=== PATIENT | female | born 1955 | race Caucasian/White ===

== ENCOUNTER → 2017-06-14 | Outpatient (CLI) | payer BC ==
[~2017-06-14] MED LIST: ALUMSUS21 PO; ATV5 PO; CLBCRM30 EXT; CLON0.5T3 PO; CYAN500T13 PO; CYM/30 PO; DULO60CA44 PO; ESTR2 PO; FLAX100019 PO; GABA-112 PO; LOSA50TA6 PO; METF750T PO; METO25TA56 PO; MULT-506 PO; ORPH100T PO; OXYC40TA34 PO; PANT40TA PO; POLY335019 PO; POTA20TA16 PO; RANO1000 PO; ROPI1TAB PO; ROSU20TA PO; RXC5 PO; TOPI100T20 PO
--- NOTE | 2017-06-15 07:45 | MAMMOGRAPHY REPORT ---
BILATERAL DIGITAL SCREENING MAMMOGRAM WITH CAD: 06/14/2017 CLINICAL HISTORY: Routine screening. Patient has no complaints. TECHNIQUE: Bilateral CC and MLO views were obtained. Current study was also evaluated with a Compute r Aided Detection (CAD) system. COMPARISON: Comparison is made to exams dated: 05/04/2016 mammogram, 05/02/2014 mammogram, 03/23/2013 m ammogram, and 04/13/2012 ultrasound biopsy - [facility]. BREAST COMPOSITION: The tissue of both breasts is almost entirely fatty. FINDINGS: Triangular skin markers were placed over each nipple. There is a stable metallic biopsy ma rker in the right breast. A few scattered benign-appearing coarse calcifications. No suspicious mas s, architectural distortion or cluster of suspicious microcalcifications is seen. IMPRESSION: ACR BI-RADS CATEGORY 1: NEGATIVE There is no mammographic evidence of malignancy. A 1 year screening mammogram is recommended. The pa tient will receive written notification of the results. Approximately 10% of breast cancers are not detected with mammography. A negative mammographic report should not delay biopsy if a clinically suggestive mass is present. Pau Harp M.D. ay/:06/14/2017 16:53:52 [employer] Maker Novelty: Rocio Velez RT(R)(M), [facility] letter sent: Normal 1/2 BI-RADS Code: ACR BI-RADS Category 1: Negative
== END | disposition home or self-care (01) ==
LOC: C.MAMM 15:29
PROVIDERS: ATTEND Specialist
DX: Z12.31 Encounter for screening mammogram for malignant neoplasm of breast (principal)

== ENCOUNTER 2019-05-25 08:37 | Inpatient (IN) ==
--- NOTE | 2019-05-08 14:10 | PAT Medication Instructions ---
Medication Instructions Date of Service May 08, 2019 Home Medications ALUMINUM HYDROXIDE-MAG CARB (GAVISCON) 1 tbsp PO BID PRN CLOBETASOL PROPIONATE (Clobetasol Propionate Cream 0.05%) 1 applic EXT DAILY PRN Duloxetine HCl (Cymbalta) 1 cap PO BID ESTRADIOL (ESTRACE) 0.5 tab PO QAM LOSARTAN POTASSIUM (COZAAR) 50 mg PO QAM METFORMIN HCL (GLUCOPHAGE ER) 750 mg PO BID Metoprolol Tartrate (Lopressor) (Lopressor) 25 mg PO QAM Multivitamin 1 tab PO QAM Orphenadrine Citrate (Norflex) 100 mg PO BID PRN Potassium Ext Rel (Klor-Con) 20 meq PO QPM RANOLAZINE (RANEXA) 1 tab PO BID ROSUVASTATIN CALCIUM (CRESTOR) 20 mg PO QAM Ropinirole (Requip) 2 mg PO HS Topiramate (Topamax) 100 mg PO BID gabapentin 300 mg PO TID linaclotide [Linzess] 290 mcg PO QAM pantoprazole 20 mg PO BID vit C,X-Qv-eumak-lutein-zeaxan [PreserVision AREDS-2] 1 tab PO HS STOP taking 2 weeks before surgery vit C,B-Qd-kwuqn-lutein-zeaxan [PreserVision AREDS-2] 1 tab PO HS STOP taking 24 hours before surgery CLOBETASOL PROPIONATE (Clobetasol Propionate Cream 0.05%) 1 applic EXT DAILY PRN Ropinirole (Requip) 2 mg PO HS DO NOT take the morning of surgery ALUMINUM HYDROXIDE-MAG CARB (GAVISCON) 1 tbsp PO BID PRN ESTRADIOL (ESTRACE) 0.5 tab PO QAM LOSARTAN POTASSIUM (COZAAR) 50 mg PO QAM METFORMIN HCL (GLUCOPHAGE ER) 750 mg PO BID Multivitamin 1 tab PO QAM Orphenadrine Citrate (Norflex) 100 mg PO BID PRN linaclotide [Linzess] 290 mcg PO QAM Take morning of surgery With a small sip of water, OTHERWISE NOTHING TO EAT OR DRINK AFTER MIDNIGHT: Duloxetine HCl (Cymbalta) 1 cap PO BID Metoprolol Tartrate (Lopressor) (Lopressor) 25 mg PO QAM RANOLAZINE (RANEXA) 1 tab PO BID ROSUVASTATIN CALCIUM (CRESTOR) 20 mg PO QAM Topiramate (Topamax) 100 mg PO BID gabapentin 300 mg PO TID pantoprazole 20 mg PO BID Take evening before surgery ALUMINUM HYDROXIDE-MAG CARB (GAVISCON) 1 tbsp PO BID PRN (if needed) Duloxetine HCl (Cymbalta) 1 cap PO BID METFORMIN HCL (GLUCOPHAGE ER) 750 mg PO BID Orphenadrine Citrate (Norflex) 100 mg PO BID PRN (if needed) Potassium Ext Rel (Klor-Con) 20 meq PO QPM RANOLAZINE (RANEXA) 1 tab PO BID Topiramate (Topamax) 100 mg PO BID gabapentin 300 mg PO TID pantoprazole 20 mg PO BID Other Notes If you have any questions please call us at [phone] or [phone] or [phone] or [phone]
--- NOTE | 2019-05-08 14:52 | Anesthesiology Consultation ---
Date of Service May 08, 2019 Assessment & Plan (1) Encounter for pre-operative examination: Cardio clearance 05/22 (trinacollin) = " I see no cardiac contraindication to proceeding on with the planned back surgery. I would recommend perioperative cardiac monitoring. She should receive her metoprolol tartrate the morning of surgery with a sip of water." *OR notification sheet updated for arterial line placement given cardio recommendations above. Chart Review Chart Review: Acceptable Risk for Surgery and Patient seen in Pre Admission Testing Teaching & Discussion Instructed NPO after midnight before surgery, except medications with 15 cc of water. Medication instructions provided according to the PAT guidelines. History Surgery Operation Date: 05/25/19 09:55 Proposed Procedures p L2-L3, L3-L4 Decompression and Fusion with Spinal Cord Monitoring - Leandro Segura, Height/Weight Height: 5 ft 1 in Weight: 91.7 kg Allergies Allergy/AdvReac Type Severity Reaction Status Date / Time ampicillin Allergy Unknown SWELLING Verified 05/04/19 14:29 OF LIPS vancomycin Allergy Unknown ITCHINESS Verified 05/04/19 14:29 AND SKIN REDNESS pregabalin [From Lyrica] Allergy Swelling Verified 05/08/19 14:43 of extremities Medications Home Medications Medication Instructions Recorded Confirmed Last Taken ALUMINUM HYDROXIDE-MAG CARB 1 tbsp PO BID PRN #0 04/12/16 05/04/19 Unknown (GAVISCON) CLOBETASOL PROPIONATE (Clobetasol 1 applic EXT DAILY PRN #0 tube 04/12/16 05/04/19 Unknown Propionate Cream 0.05%) Duloxetine HCl (Cymbalta) 1 cap PO BID 30 Days #30 cap 04/12/16 05/04/19 Unknown ESTRADIOL (ESTRACE) 0.5 tab PO QAM 90 Days #45 tab 04/12/16 05/04/19 Unknown LOSARTAN POTASSIUM (COZAAR) 50 mg PO QAM #0 tab 04/12/16 05/04/19 Unknown METFORMIN HCL (GLUCOPHAGE ER) 750 mg PO BID #0 tab 04/12/16 05/04/19 Unknown Metoprolol Tartrate (Lopressor) 25 mg PO QAM #0 tab 04/12/16 05/04/19 Unknown (Lopressor) Multivitamin 1 tab PO QAM #0 tab 04/12/16 05/04/19 Unknown Orphenadrine Citrate (Norflex) 100 mg PO BID PRN #0 tab 04/12/16 05/04/19 Unknown Potassium Ext Rel (Klor-Con) 20 meq PO QPM #0 tab 04/12/16 05/04/19 Unknown RANOLAZINE (RANEXA) 1 tab PO BID 90 Days #180 tab 04/12/16 05/04/19 Unknown ROSUVASTATIN CALCIUM (CRESTOR) 20 mg PO QAM #0 tab 04/12/16 05/04/19 Unknown Ropinirole (Requip) 2 mg PO HS #0 tab 04/12/16 05/04/19 Unknown Topiramate (Topamax) 100 mg PO BID #0 tab 04/12/16 05/04/19 Unknown gabapentin 300 mg PO TID 05/04/19 05/04/19 Unknown linaclotide [Linzess] 290 mcg PO QAM 05/04/19 05/04/19 Unknown pantoprazole 20 mg PO BID 05/04/19 05/04/19 Unknown vit C,D-Mv-ownuo-lutein-zeaxan 1 tab PO HS 05/04/19 05/04/19 Unknown [PreserVision AREDS-2] Past Medical History Medical History Anxiety Depression Diabetes mellitus, type 2 GERD (gastroesophageal reflux disease) H/O chest pain Per cardio, relieved by Ranexa, though pt had "normal" coronary arteries on 2012 cath. Heart palpitations Rare. Had full cardiac workup for. Hiatal hernia Hyperlipidemia Hypertension Incontinent of urine Macular degeneration BOTH EYES Nutcracker esophagus Obesity Spinal stenosis Exercise / Class Metabolic Activity III < 4 Walking/Shop/Light housework (Limited activity 2/2 back pain. +SOB with stairs, denies any chest pain) Past Family History Family History Brother Family history of diabetes mellitus Sister Family history of diabetes mellitus Past Surgical History Surgical History History of back surgery X2 History of cardiac cath 2012 [place]. No intervention performed. "Essentially normal coronary arteries" per cardio. History of colonoscopy History of right knee joint replacement X2 Hx of bilateral breast reduction surgery Hx of cervical discectomy Hx of cholecystectomy Hx of total hysterectomy Past Anesthesia History No Family Hx of Anesthesia Complications (Sister slow to wake, no ICU or reintubation) and Other Patient reports she was kept inpatient after cholecystectomy because she "just could not wake up." Denies re-intubation. Has had subsequent surgeries with no issues. History of PONV No Hx of PONV and Hx of Motion Sickness Social History Smoking Status: Never smoker Do You Dip or Chew Tobacco: No Hx Alcohol Use: Yes Alcohol type: beer and wine alcohol intake frequency: holidays/special occasions only Hx Substance Use: No Review of Systems Pt denies any recent chest pain, shortness of breath, palpitations, cough, fever or URI. Physical Exam Vital Signs BP: 112/71 P: 61bpm SPO2: 97% RA T: 98.5 F R: 18 Constitutional + obese ENMT Mouth: + dentures (Full upper denture, partial lower); no chipped teeth and no loose teeth Thyromental Distance: > or= 3.5 Finger Breadths (4) Mallampati Class: II Neck + short neck, + thick neck and + limited neck extension (mildly limited 2/2 cervical fusion) Respiratory normal respiratory effort Auscultation: lungs clear to auscultation bilaterally Cardiovascular Rate/Rhythm: regular rate and regular rhythm Heart Sounds: no murmur Vessels: no carotid bruit Extremities: no edema Testing Laboratory Results 05/08/19 14:58 05/08/19 14:58 PT 9.9 Seconds (9.0-12.0) 05/08/19 14:58 INR 1.0 (0.9-1.1) 05/08/19 14:58 APTT 24.1 Seconds (21.0-31.0) 05/08/19 14:58 Hemoglobin A1c 5.9 % (4.5-5.6) H 05/08/19 14:58 Urine Color Dark Yellow 05/08/19 Unknown Urine Appearance Clear (Clear) 05/08/19 Unknown Urine pH 5.5 (4.5-7.5) 05/08/19 Unknown Ur Specific [place] 1.025 (1.000-1.030) 05/08/19 Unknown Urine Protein Negative (Negative) 05/08/19 Unknown Urine Glucose (UA) Negative (Negative) 05/08/19 Unknown Urine Ketones Negative (Negative) 05/08/19 Unknown Urine Nitrite Negative (Negative) 05/08/19 Unknown Ur Leukocyte Esterase Trace (Negative) H 05/08/19 Unknown Urine WBC (Auto) 1-5 /hpf (0-5) 05/08/19 Unknown Urine RBC (Auto) 5-10 /hpf (0-4) H 05/08/19 Unknown U Hyaline Cast (Auto) 1-5 /lpf (0-5) 05/08/19 Unknown U Epithel Cells (Auto) 20-30 /lpf (0-5) H 05/08/19 Unknown Urine Bacteria (Auto) Negative (Negative) 05/08/19 Unknown Blood Type B Positive 05/08/19 14:58 Antibody Screen NEGATIVE 05/08/19 14:58 Electrocardiogram Date: 05/08/19 Findings: + NSR @ (61) Chest X-Ray Date: 05/08/19 Findings: + NAD Echocardiogram Date: 07/13/17 EF: 55% Normal left ventricular wall motion and ejection fraction estimated in the range of 55%. LVH. Sclerotic changes involving both the aortic and mitral valve leaflets. Mild mitral and tricuspid valvular insufficiency. Stress Test Date: 05/23/19 Type: nuclear Normal myocardial perfusion SPECT images without evidence for pharmacologically induced ischemia. Normal LV wall motion and thickening. Normal LV ejection fraction post stress of 53%. Cardiac Catheterization Date: 01/08/13 Hemodynamics are normal. There is no pullback aortic gradient. Left ventricular systolic function is normal without any mitral regurgitation or mitral valve prolapse. The coronary arteries are all normal. In view of no evidence of coronary artery disease I would suggest patient just needs to be observed and treated medically.
[2019-05-08 15:35] LABS: Basophils # (auto) 0.02 K/uL (0-0.2); Basophils % (auto) 0.4 %; Eosinophils # (auto) 0.32 K/uL (0-0.5); Eosinophils % (auto) 5.8 %; Hemoglobin 12.3 g/dL (12.0-16.0); Immature Granulocytes # (auto) 0.01 K/uL (0.00-0.02); Immature Granulocytes % (auto) 0.2 %; Lymphocytes # (auto) 1.97 K/uL (1.2-3.4); Lymphocytes % (auto) 35.6 %; Mean Corpuscular Hgb Conc 33.2 g/dL (32-36); Monocytes # (auto) 0.49 K/uL (0.11-0.59); Monocytes % (auto) 8.8 %; Neutrophils # (auto) 2.73 K/uL (1.4-6.5); Neutrophils % (auto) 49.2 %; Platelet Count 186 K/uL (130-400); RDW Coefficient of Variation 14.4 % (11.5-14.5); RDW Standard Deviation 49.1 fL (36.4-46.3); Red Blood Count 3.98 M/uL (4.2-5.4); White Blood Count 5.54 K/uL (4.8-10.8)
[2019-05-08 15:45] LABS: Calcium 8.8 mg/dl (8.5-10.1); Creatinine Clr Calc Pharmacy 84.8 ml/min; Est GFR (African American) 105.8; Est GFR (Non-African American) 91.3; Potassium 3.8 mmol/L (3.5-5.1)
--- NOTE | 2019-05-08 15:49 | XRay Report ---
XR chest Pre-admission PA/Lat CLINICAL HISTORY: Preoperative evaluation. COMPARISON STUDY: Chest radiograph April 12, 2016. FINDINGS: Lung volumes are normal. Lungs are clear. There is no pneumothorax or pleural effusion. Car diac size is normal. Mediastinal contours are normal. There is no evidence for pulmonary edema. Incid ental note is made of an anterior cervical spine fusion and cholecystectomy clips. Linear left basila r opacity suggests atelectasis. IMPRESSION: No acute cardiopulmonary findings. Electronically signed by: Mina Kim M.D. 05/08/2019 3:48 PM
[2019-05-08 15:51] LABS: Partial Thromboplastin Ratio 0.9; Partial Thromboplastin Time 24.1 Seconds (21.0-31.0); Prothrombin Time 9.9 Seconds (9.0-12.0)
[2019-05-08 15:52] LABS: Appearance Urine Clear (Clear); Bacteria Urine Automated Negative (Negative); Bilirubin Urine Negative (Negative); Color Urine Dark Yellow; Epithelial Cell Urine Auto 20-30 /lpf (0-5); Glucose Urine UA Negative (Negative); Ketones Urine Negative (Negative); Leukocyte Esterase Urine Trace (Negative); Nitrite Urine Negative (Negative); Protein Urine Negative (Negative); Specific Gravity Urine 1.025 (1.000-1.030); Urobilinogen Urine Negative (Negative); pH Urine 5.5 (4.5-7.5)
[2019-05-09 06:33] LABS: Estimated Average Glucose 123 mg/dl
[~2019-05-25 08:37] MED LIST changes: +ACETAMINOPHEN 500 MG TAB PO SCH; -ALUMSUS21 PO; -ATV5 PO; -CLBCRM30 EXT; +CLINDAMYCIN 600 MG/54 ML BAG IV SCH; -CLON0.5T3 PO; -CYAN500T13 PO; -CYM/30 PO; +CeleBREX 200 MG CAP PO SCH; +DEXAMETHASONE SOD INJ 4 MG/ML VIAL ONE; -DULO60CA44 PO; -ESTR2 PO; -FLAX100019 PO; -GABA-112 PO; +GABAPENTIN 600 MG DOSE PO SCH; +GLYCOPYRROLATE 0.2 MG/ML VIAL ONE; +HYDROmorphone INJ 2 MG/ML SYR/VIAL ONE; +LIDOCAINE HCL 2% 2 ML VIAL/AMP(20MG/ML) INFIL ONE; -LOSA50TA6 PO; +LR 15ML/HR IV SCH; -METF750T PO; -METO25TA56 PO; +MIDAZOLAM HCL 1 MG/ML 2ML VIAL ONE; -MULT-506 PO; +NEOSTIGMINE METHYLSULFATE 1 MG/ML 10ML VIAL ONE; +ONDANSETRON INJ 2 MG/ML 2 ML VIAL ONE; -ORPH100T PO; -OXYC40TA34 PO; -PANT40TA PO; -POLY335019 PO; -POTA20TA16 PO; +PROPOFOL IV EMULSION 10 MG/ML 20 ML VIAL IV ONE; -RANO1000 PO; +ROCURONIUM BROMIDE 10 MG/ML 5 ML VIAL ONE; -ROPI1TAB PO; -ROSU20TA PO; -RXC5 PO; -TOPI100T20 PO; +fentaNYL citrate 100 MCG/2 ML VIAL ONE
--- NOTE | 2019-05-25 09:02 | History & Physical Bridge Note ---
Date of Service May 25, 2019 History & Physical Bridge Note I have examined the patient, reviewed the History & Physical and in the interval since the performance of the History & Physical I have noted the following changes of clinical significance: no changes noted
--- NOTE | 2019-05-25 09:03 | History & Physical Report ---
Date of Service May 25, 2019 Assessment & Plan (1) Spinal stenosis, lumbar region with neurogenic claudication: Decompression and fusion L2-3 L3-4 Present on Admission?: Yes History of Present Illness Chief Complaint: Back and leg pain Primary Care Provider: Shin Alston, This is a 64-year-old female presents with chronic persistent back and bilateral leg pain. After failing extensive course of nonoperative care she is here for surgical intervention. Allergies Allergy/AdvReac Type Severity Reaction Status Date / Time ampicillin Allergy Unknown SWELLING Verified 05/04/19 14:29 OF LIPS vancomycin Allergy Unknown ITCHINESS Verified 05/04/19 14:29 AND SKIN REDNESS pregabalin [From Lyrica] Allergy Swelling Verified 05/08/19 14:43 of extremities Home Medications Home Medications Medication Instructions Recorded Confirmed Type ALUMINUM HYDROXIDE-MAG CARB 1 tbsp PO BID PRN #0 04/12/16 05/04/19 History (GAVISCON) CLOBETASOL PROPIONATE (Clobetasol 1 applic EXT DAILY PRN #0 tube 04/12/16 05/04/19 History Propionate Cream 0.05%) Duloxetine HCl (Cymbalta) 1 cap PO BID 30 Days #30 cap 04/12/16 05/04/19 History ESTRADIOL (ESTRACE) 0.5 tab PO QAM 90 Days #45 tab 04/12/16 05/04/19 History LOSARTAN POTASSIUM (COZAAR) 50 mg PO QAM #0 tab 04/12/16 05/04/19 History METFORMIN HCL (GLUCOPHAGE ER) 750 mg PO BID #0 tab 04/12/16 05/04/19 History Metoprolol Tartrate (Lopressor) 25 mg PO QAM #0 tab 04/12/16 05/04/19 History (Lopressor) Multivitamin 1 tab PO QAM #0 tab 04/12/16 05/04/19 History Orphenadrine Citrate (Norflex) 100 mg PO BID PRN #0 tab 04/12/16 05/04/19 History Potassium Ext Rel (Klor-Con) 20 meq PO QPM #0 tab 04/12/16 05/04/19 History RANOLAZINE (RANEXA) 1 tab PO BID 90 Days #180 tab 04/12/16 05/04/19 History ROSUVASTATIN CALCIUM (CRESTOR) 20 mg PO QAM #0 tab 04/12/16 05/04/19 History Ropinirole (Requip) 2 mg PO HS #0 tab 04/12/16 05/04/19 History Topiramate (Topamax) 100 mg PO BID #0 tab 04/12/16 05/04/19 History gabapentin 300 mg PO TID 05/04/19 05/04/19 History linaclotide [Linzess] 290 mcg PO QAM 05/04/19 05/04/19 History pantoprazole 20 mg PO BID 05/04/19 05/04/19 History vit C,R-Vi-sipdi-lutein-zeaxan 1 tab PO HS 05/04/19 05/04/19 History [PreserVision AREDS-2] Past Med/Surg History Medical History Anxiety Depression Diabetes mellitus, type 2 GERD (gastroesophageal reflux disease) H/O chest pain Per cardio, relieved by Ranexa, though pt had "normal" coronary arteries on 2013 cath. Heart palpitations Rare. Had full cardiac workup for. Hiatal hernia Hyperlipidemia Hypertension Incontinent of urine Macular degeneration BOTH EYES Nutcracker esophagus Obesity Spinal stenosis Surgical History History of back surgery X2 History of cardiac cath 2013 [place]. No intervention performed. "Essentially normal coronary arteries" per cardio. History of colonoscopy History of right knee joint replacement X2 Hx of bilateral breast reduction surgery Hx of cervical discectomy Hx of cholecystectomy Hx of total hysterectomy Family History Brother Family history of diabetes mellitus Sister Family history of diabetes mellitus Social History Preferred Language: Beninese Communication Ability: Effective Beliefs That Will Affect Care: None Current Living Situation: Spouse Feels Safe at Home: Yes Safety Concerns: Feels Safe At This Time Smoking Status: Never smoker Do You Dip or Chew Tobacco: No Second Hand Exposure: No Hx Alcohol Use: Yes Alcohol type: beer and wine Hx Substance Use: No Physical Exam Physical Exam: Patient is alert and oriented neurologically intact.
[2019-05-25] MEDS ORDERED: HYDROmorphone INJ 2 MG/ML SYR/VIAL IV PRN (09:20)
[2019-05-25] MEDS ORDERED: PROMETHAZINE HCL 12.5 MG in SODIUM CHLORIDE 0.9% 50 ML IV PRN ×2 (09:20→13:54)
[2019-05-25] MEDS ORDERED: DEXAMETHASONE SOD INJ 4 MG/ML VIAL IV PRN (09:20)
[2019-05-25] MEDS ORDERED: METOCLOPRAMIDE HCL INJ 5 MG/ML 2 ML VIAL IV PRN ×2 (09:20→13:54)
[2019-05-25] MEDS ORDERED: ePHEDrine sulfate 50 MG/ML AMP IV PRN (09:20)
[2019-05-25] MEDS ORDERED: ONDANSETRON INJ 2 MG/ML 2 ML VIAL IV PRN ×2 (09:20→13:54)
[2019-05-25] MEDS ORDERED: ATROPINE SULFATE 0.1 MG/ML 10ML SYR IV PRN (09:20)
[2019-05-25] MEDS ORDERED: HYDROmorphone INJ 2 MG/ML SYR/VIAL ONE (09:22)
[2019-05-25] MEDS ORDERED: BACITRACIN INJ 50,000 UNIT VIAL ONE (09:29)
[2019-05-25] MEDS ORDERED: BUPIVACAINE/EPINEPHRINE 0.5% MPF 1:200,000 30 ML VIAL ONE (09:29)
[2019-05-25] MEDS ORDERED: fentaNYL citrate 100 MCG/2 ML VIAL ONE ×4 (10:18→11:24)
[2019-05-25] MEDS ORDERED: LARYING-O-JET KIT (LTA) ONE (10:44)
[2019-05-25] MEDS ORDERED: FLOSEAL HEMOSTATIC MATRIX 10ML TOP ONE (10:53)
[2019-05-25] MEDS ORDERED: ROCURONIUM BROMIDE 10 MG/ML 5 ML VIAL ONE (11:35)
[2019-05-25] MEDS ORDERED: KETOROLAC 30 MG/ML VIAL ONE (11:35)
[2019-05-25] MEDS ORDERED: ePHEDrine sulfate 50 MG/ML SYR ONE (11:35)
--- NOTE | 2019-05-25 12:01 | Operative Report ---
Post Operative Report Pre & Post Diagnosis Operation Date: 05/25/19 09:55 Pre-Op Diagnosis: LUMBAR SPINAL STENOSIS W/NEUROGENIC CLAUDICATION Post-Op Diagnosis: LUMBAR SPINAL STENOSIS W/NEUROGENIC CLAUDICATION Procedure Operation Date: 05/25/19 09:55 Actual Procedures #1 revision decompression bilateral medial facetectomies foraminotomies L1-L2 3 L3-4. #2 posterior spinal fusion L2-3 L3-4. #3 placement posterior instrumentation L2-3 L3-4. #4 interbody fusion L3-4. #5 placed a peek cage 10 x 22 mm at L3-4. #6 placement of local autograft in the posterior lateral gutte rs. #7 placement infuse collagen sponge, master graft in the posterior lateral gutters and ostial amp and interbody space. Surgeon Leandro Segura, DO Gum Rolling Machine Operator Jamil Greene Estimated Blood Loss 225 Findings See Below Patient is 5 foot 1 inches tall weighing 92 kg with a BMI of 38.4. Patient's body habitus created marked technical difficulty throughout the procedure adding 50% increase in operative time. Requiring our deepest retractors and longus instruments to perform the decompression and fusion. Specimens None Indications This is a 64-year-old female that presents with chronic back and bilateral leg pain. After failing extensive course of nonoperative care she like to undergo the above-mentioned procedure. Description of Procedure The patient was met with identified and informed consent obtained. Patient was then taken to the operative suite underwent intubation placed in a prone position the Klaus table on top of the Brennan frame. All bony prominences well-padded eyes inspected to ensure no external pressure placed upon but this point lumbar spine was prepped and draped in normal sterile fashion. Sharp dissection with the assistance of Bovie cautery was performed down to and exposing the remaining lamina and transverse processes of L2-L3 and L4 bilaterally. Marked scarring was appreciated from the previous decompressed level at L3-4. Then performed revision complete laminectomy of L3 L2 and partial laminectomy of L1 including bilateral medial facetectomies f oraminotomies addressing severe stenosis. Pedicle screws were then placed in L2-L3-L4 bilaterally with assistance of fluoroscopy the purposes sunita placed. By way of a transforaminal approach on the right complete discectomy at L3-4 was performed in plate graded to subcortical bleeding bone and a 10 x 22 mm peek cage filled with osteo-amp bone graft tapped in position. The rods were then locked in final position bilaterally. The transverse processes of L2-L3-L4 burred to subcortical bleeding bone. Infuse collagen sponge mass graft local autograft placed in the posterior lateral gutters. 15 round SIMON drain inserted. Incision was then closed with 1 Vicryl in the fascia 2-0 Vicryl subtenons seen for Monocryl for final skin closure. Steri-Strip sterile dressings placed. Patient will continue PACU stable disc. Please note Jamil Greene present throughout the entire procedure involved in patient positioning complex portions of the surgery and final skin closure. Lastly spinal cord monitoring was utilized that procedure no changes noted. I attest to the content of the Intraoperative Record and any orders documented therein. Any exceptions are noted below.
[2019-05-25] MEDS ORDERED: HydrALAZINE HCL 20 MG/ML VIAL ONE (12:02)
[2019-05-25] MEDS ORDERED: LABETALOL HCL IV 5 MG/ML 20ML IV ONE (12:09)
--- NOTE | 2019-05-25 12:13 | Fluoroscopy Report ---
FL lumbar spine 2-3V CLINICAL HISTORY: L2-4 DECOMPRESSION/FUSION/INTERBODY COMPARISON STUDY: None. FLUOROSCOPY TIME: 20 seconds. FLUOROSCOPIC IMAGES: 2. FINDINGS: These images demonstrate L3-L4, L4-L5 and L5-S1 discectomies. Posterior decompression with bilateral pedicle screws likely at the L2, L3 and L4 levels is noted. There is slight loss of height of the superior plate of L2. There are interconnecting rods. Hardware is intact. IMPRESSION: Fluoroscopic images demonstrating L3-L4 discectomy and L2-L4 posterior decompression and fusion. Electronically signed by: Mina Kim M.D. 05/25/2019 12:11 PM
[2019-05-25] MEDS: fentaNYL citrate 100 MCG/2 ML VIAL IV PRN ×2 (12:51→12:56)
--- NOTE | 2019-05-25 13:37 | Anesthesiology Progress Note ---
Date of Service May 25, 2019 Anesthesia Post Procedure Vital Signs Vital Signs: Temp Pulse Resp BP Pulse Ox 05/25/19 13:30 75 19 130/66 93 05/25/19 13:20 36.7 C 75 13 138/68 94 05/25/19 13:10 75 19 129/62 94 05/25/19 13:00 73 20 117/61 94 05/25/19 12:50 71 20 125/59 L 96 05/25/19 12:40 71 19 136/68 96 05/25/19 12:30 36.8 C 76 14 149/68 H 96 05/25/19 09:23 36.8 C 76 20 157/79 H 99 Pain Intensity Lower Back: Pain Intensity: 4 Transfer of Care Handoff Completed per policy Notes Mental Status: alert / awake / arousable and participated in evaluation Patient Amnestic to Procedure: Yes Nausea / Vomiting: adequately controlled Pain: adequately controlled Airway Patency, RR, SpO2: stable & adequate BP & HR: stable & adequate Hydration State: stable & adequate Anesthetic Complications: no major complications apparent
[2019-05-25] MEDS ORDERED: MAGNESIUM CARBONATE PO PRN (13:54)
[2019-05-25] MEDS ORDERED: BISACODYL 10 MG SUPP PR PRN (13:54)
[2019-05-25] MEDS ORDERED: DO NOT ADMINISTER PNEUMOCOCCAL VACCINE PRN (13:54)
[2019-05-25] MEDS ORDERED: DO NOT ADMINISTER FLU VACCINE PRN (13:54)
[2019-05-25] MEDS ORDERED: SOD PHOSPHATE/SOD BIPHOSPHATE ENEMA 132 ML BTL PR PRN (13:54)
[2019-05-25] MEDS ORDERED: ONDANSETRON 4 MG TAB PO PRN (13:54)
[2019-05-25] MEDS ORDERED: LORazepam 0.5 MG/1 ML VIAL IV PRN (13:54)
[2019-05-25] MEDS ORDERED: MAGNESIUM HYDROXIDE SUSP 30 ML UDC PO PRN (13:54)
[2019-05-25] MEDS ORDERED: LORazepam 0.5 MG TAB PO PRN (13:54)
[2019-05-25] MEDS ORDERED: ALUMINUM/MAGNESIUM SUSP 30 ML UDC PO PRN (13:54)
[2019-05-25] MEDS ORDERED: ALUMINUM HYDROXIDE PO PRN (13:54)
[2019-05-25] MEDS ORDERED: FAMOTIDINE 20 MG TAB PO PRN (13:54)
[2019-05-25] MEDS ORDERED: ACETAMINOPHEN 500 MG TAB PO PRN (13:54)
[2019-05-25] MEDS ORDERED: ACETAMINOPHEN 1,000 MG/100 ML VIAL IV PRN (13:54)
[2019-05-25] MEDS ORDERED: TRAMADOL HCL 50 MG TABLET PO PRN (13:54)
[2019-05-25] MEDS ORDERED: CLOBETASOL PROPIONATE 0.05% OINT 15 GM TUBE EXT PRN (13:54)
[2019-05-25] MEDS ORDERED: GABAPENTIN 300 MG CAP PO SCH (14:15)
--- NOTE | 2019-05-25 14:33 | Hospitalist Consultation ---
Date of Consultation May 25, 2019 Assessment & Plan (1) H/O lumbosacral spine surgery: This is a 64yo F with a PMH of CAD, HTN, DM II, GERD and other medical problems listed below who is POD #0 s/p L2-L4 decompression and fusion by Dr. Segura. -POD #0 s/p L2-L4 decompression and fusion by Dr. Segura -Pt is doing well post-operatively -Per ortho for pain control, wound care, anticoagulation and activities -Monitor H&H (EBL: 225 ml, SIMON output: 180ml to date). Pro-op hgb 12.3 -Continue incentive spirometry, PT/OT when appropriate (2) Hypertension: Normotensive -Continue home dose losartan, Lopressor (3) Diabetes mellitus, type 2: Recent A1c of 5.9 -Hold home agents -SSI while in-patient -BSG AC HS (4) CAD (coronary artery disease): Had cardiac catheterization 3 years ago with normal coronaries -Has been taking Ranexa twice daily and has not been having chest pain (5) GERD (gastroesophageal reflux disease): Continue PPI (6) Hyperlipidemia: Continue statin (7) Depression: Continue Cymbalta DVT Ppx: Per primary service PCP: [facility] ([place]) Patient seen in collaboration with Dr. De La Torre. Please see addendum. Supervising Physician Co-Signing Physician Notes Patient is a 64-year-old female with history of diabetes, well-controlled hypertension, coronary artery disease and other problems was seen and examined postop after having lumbar decompression fusion surgery by Dr. Segura. Patient is doing well postop. Denies any chest pain, shortness of breath, dizziness, nausea, abdominal pain. Has some pain at the surgical site. Offers no other complaints. On exam patient is moderately built and nourished, no apparent distress, normocephalic atraumatic, lungs are clear to auscultation, S1-S2, no murmur, abdomen soft nontender, back-surgical site in dressing,+ drain, grossly no focal neurological deficits, no pedal edema. Agree with above assessment and plan. Monitor for postop anemia. Continue bowel regimen to prevent r constipation. Activity, wound care, DVT prophylaxis as per primary team. Agree with sliding scale insulin therapy, monitor blood glucose levels. I personally reviewed the record. Patient is interviewed and examined at bedside. Patient's care is coordinated with Savannah Choe PA-C. Please refer to the documentation above for details of patient's presentation and for discussion of other issues. History of Present Illness Reason for Consultation: post op medical management Attending Physician: Leandro Segura DO History of Present Illness This is a 64yo F with a PMH of CAD, HTN, DM II, GERD and other medical problems listed below who is POD #0 s/p L2-L4 decompression and fusion by Dr. Segura. Patient is feeling well postoperatively. Has minimal surgical site pain and denies any distal numbness or paresthesias in lower extremities. Denies any chest pain or shortness of breath. No nausea, vomiting or abdominal pain. Follows with Dr. Alston for PCP in [place]. Recent a1c of 5.9. Has history of palpitations with a negative work-up. Takes Ranexa daily. Denies fever, chills, lightheadedness, headache, sore throat, wheezing, dysuria, diarrhea or constipation. Allergies Allergy/AdvReac Type Severity Reaction Status Date / Time ampicillin Allergy Intermediate SWELLING Verified 05/25/19 09:03 OF LIPS pregabalin [From Lyrica] Allergy Intermediate Swelling Verified 05/25/19 09:03 of extremities vancomycin Allergy Intermediate ITCHINESS Verified 05/25/19 09:03 AND SKIN REDNESS Home Medications Home Medications Medication Instructions Recorded Confirmed Type gabapentin 600 mg PO TID 05/04/19 05/25/19 History linaclotide [Linzess] 290 mcg PO QAM 05/04/19 05/25/19 History pantoprazole 20 mg PO BID 05/04/19 05/25/19 History vit C,M-Bs-myupg-lutein-zeaxan 1 tab PO HS 05/04/19 05/25/19 History [PreserVision AREDS-2] aluminum hydrox-magnesium carb 1 tab PO DAILY 05/25/19 05/25/19 History [Gaviscon Extra Strength] duloxetine [Cymbalta] 60 mg PO BID 05/25/19 05/25/19 History estradiol 1 mg PO DAILY 05/25/19 05/25/19 History losartan 50 mg PO DAILY 05/25/19 05/25/19 History metformin 750 mg PO BID 05/25/19 05/25/19 History metoprolol tartrate 25 mg PO DAILY 05/25/19 05/25/19 History multivitamin 1 tab PO DAILY 05/25/19 05/25/19 History orphenadrine citrate 100 mg PO BID 05/25/19 05/25/19 History potassium chloride 20 meq PO DAILY 05/25/19 05/25/19 History ranolazine [Ranexa] 1,000 mg PO BID 05/25/19 05/25/19 History ropinirole [Requip] 2 mg PO HS 05/25/19 05/25/19 History rosuvastatin [Crestor] 20 mg PO DAILY 05/25/19 05/25/19 History topiramate [Topamax] 100 mg PO BID 05/25/19 05/25/19 History Patient History Medical History Anxiety (Chronic) Depression (Chronic) Hyperlipidemia (Chronic) Hypertension (Chronic) Diabetes mellitus, type 2 (Chronic) GERD (gastroesophageal reflux disease) (Chronic) CAD (coronary artery disease) (Chronic) H/O chest pain (Chronic) Per cardio, relieved by Ranexa, though pt had "normal" coronary arteries on 2013 cath. Hiatal hernia (Chronic) Incontinent of urine (Chronic) Macular degeneration (Chronic) BOTH EYES Nutcracker esophagus (Chronic) Surgical History History of back surgery (Chronic) X2 History of cardiac cath (Chronic) 2012 [place]. No intervention performed. "Essentially normal coronary arteries" per cardio. History of right knee joint replacement (Chronic) X3- 2 revisions Hx of bilateral breast reduction surgery (Chronic) Hx of cervical discectomy (Chronic) Hx of cholecystectomy (Chronic) Hx of total hysterectomy (Chronic) Family History Other Cancer Diabetes Heart disease Social History Preferred Language: Ethiopian Communication Ability: Effective Beliefs That Will Affect Care: None marital status: Current Living Situation: Spouse Feels Safe at Home: Yes Safety Concerns: Feels Safe At This Time Smoking Status: Never smoker Do You Dip or Chew Tobacco: No Second Hand Exposure: No Hx Alcohol Use: Yes Alcohol type: beer and wine Alcohol Intake Frequency: Rarel y Hx Substance Use: No Review of Systems Review of Systems: At least ten systems reviewed and negative except as noted in the HPI. Physical Exam Physical Exam: General Appearance: WD/WN, no apparent distress, resting comfortably Head: normocephalic, atraumatic Eyes: normal inspection, PERRL, EOMI ENT: hearing grossly normal, pharynx normal (moist mucous membranes) Neck: supple, no JVD, no adenopathy Respiratory/Chest: lungs clear to auscultation. No wheezes, rales or rhonci. No respiratory distress or accessory muscle use Cardiovascular: regular rate, rhythm, no murmur, normal peripheral pulses Abdomen/GI: normal bowel sounds, soft, non-tender to palpation Extremities/Musculoskelatal: Lumbar surgical dressing clean, dry, intact. SIMON drain visualized with sanguinous output. No calf tenderness, normal capillary refill, no pedal edema : Rosas catheter draining light yellow urine Neurologic/Psych: alert, normal mood/affect, oriented x 3 Skin: normal color, warm/dry Results & Data Vital Signs (Past 12 Hours) Vital Signs Temp Pulse Resp BP Pulse Ox 05/25/19 14:16 36.7 C 72 20 129/76 95 05/25/19 14:00 36.7 C 74 15 135/72 94 05/25/19 13:30 75 19 130/66 93 05/25/19 13:20 36.7 C 75 13 138/68 94 05/25/19 13:10 75 19 129/62 94 05/25/19 13:00 73 20 117/61 94 05/25/19 12:50 71 20 125/59 L 96 05/25/19 12:40 71 19 136/68 96 05/25/19 12:30 36.8 C 76 14 149/68 H 96 05/25/19 09:23 36.8 C 76 20 157/79 H 99 Laboratory Results Pertinent preoperative labs (05/08/19): Hgb 12.3 Cr 0.71 GFR 91.3
[2019-05-25] MEDS: KETOROLAC TROMETHAMINE 15 MG/ML VIAL IV SCH ×2 (14:49→21:44)
[2019-05-25] MEDS ORDERED: GLUCOSE 10 TABS/TUBE PO PRN (15:11)
[2019-05-25] MEDS ORDERED: GLUCOSE 40% GEL 15 GM TUBE PO PRN (15:11)
[2019-05-25] MEDS ORDERED: CARBOHYDRATES FOR HYPOGLYCEMIA PO PRN (15:11)
[2019-05-25] MEDS ORDERED: GLUCAGON FOR INJ 1 MG VIAL SQ PRN (15:11)
[2019-05-25] MEDS ORDERED: DEXTROSE 50% 50 ML SYRINGE IV PRN (15:11)
[2019-05-25] MEDS: LINZESS 290 MCG SCH ×2 (15:13→23:41)
[2019-05-25] MEDS: OXYCODONE HCL IR 5 MG TAB (IMMEDIATE RELEASE) PO PRN ×2 (15:33→23:40)
[2019-05-25] MEDS: CLINDAMYCIN 600 MG in DEXTROSE 5% 50 ML IV SCH (17:37)
[2019-05-25] MEDS: INSULIN ASPART 100 UNITS/ML 3 ML PEN SC SCH ×2 (18:07→22:09)
[2019-05-25] MEDS: SODIUM CHLORIDE 0.9% 1000ML 1,000 ML IV SCH ×2 (19:40→23:41)
[2019-05-25] MEDS ORDERED: RANOLAZINE PO SCH (21:00)
[2019-05-25] MEDS ORDERED: DULOXETINE HCL 30 MG CAP PO SCH (21:00)
[2019-05-25] MEDS ORDERED: NON-FORMULARY MEDICATION (Vit C,E-Zn-Coppr-Lutein-Zeaxan [Preservision Areds-2] 1 TAB) PO SCH (21:00)
[2019-05-25] MEDS ORDERED: PANTOprazole 40 MG TAB PO SCH (21:00)
[2019-05-25] MEDS: DULOXETINE HCL 60 MG CAP PO SCH (21:43)
[2019-05-25] MEDS: PANTOprazole 40 MG TAB PO SCH (21:44)
[2019-05-25] MEDS: RANOLAZINE 500 MG ER TAB PO SCH (21:44)
[2019-05-25] MEDS: ROPINIROLE HCL 1 MG TABLET PO SCH (21:45)
[2019-05-25] MEDS: POTASSIUM CHLORIDE 20 MEQ TABCR PO SCH (21:45)
[2019-05-25] MEDS: TOPIRAMATE 100 MG TAB PO SCH (21:45)
[2019-05-25] MEDS: DOCUSATE SODIUM/SENNA 50/8.6MG TAB PO SCH (21:45)
[2019-05-26] MEDS: CLINDAMYCIN 600 MG in DEXTROSE 5% 50 ML IV SCH (01:58)
[2019-05-26] MEDS: SODIUM CHLORIDE 0.9% 1000ML 1,000 ML IV SCH ×3 (02:03→15:48)
[2019-05-26] MEDS: KETOROLAC TROMETHAMINE 15 MG/ML VIAL IV SCH ×2 (02:03→09:27)
[2019-05-26] MEDS: POLYETHYLENE (MIRALAX) 17 GM PACK PO SCH ×4 (05:43→23:50)
[2019-05-26 06:25] LABS: Eosinophils # (auto) 0.01 K/uL (0-0.5); Eosinophils % (auto) 0.1 %; Hematocrit (blood only) 29.8 % (37-47); Hemoglobin 10.1 g/dL (12.0-16.0); Immature Granulocytes # (auto) 0.02 K/uL (0.00-0.02); Immature Granulocytes % (auto) 0.2 %; Lymphocytes # (auto) 1.63 K/uL (1.2-3.4); Lymphocytes % (auto) 16.2 %; Mean Corpuscular Hgb Conc 33.9 g/dL (32-36); Mean Corpuscular Volume 91.4 fL (80-100); Mean Platelet Volume 9.7 fL (7.4-10.4); Monocytes # (auto) 0.89 K/uL (0.11-0.59); Monocytes % (auto) 8.8 %; Neutrophils # (auto) 7.52 K/uL (1.4-6.5); Neutrophils % (auto) 74.7 %; Platelet Count 133 K/uL (130-400); RDW Coefficient of Variation 14.1 % (11.5-14.5); RDW Standard Deviation 47.2 fL (36.4-46.3); Red Blood Count 3.26 M/uL (4.2-5.4); White Blood Count 10.07 K/uL (4.8-10.8)
[2019-05-26 07:00] LABS: BUN Creatinine Ratio 23.9 (10-20); Creatinine Clr Calc Pharmacy 90.1 ml/min; Est GFR (African American) 109.2; Est GFR (Non-African American) 94.2; Potassium 3.6 mmol/L (3.5-5.1)
--- NOTE | 2019-05-26 08:51 | Orthopedic Progress Note ---
Date of Service May 26, 2019 Assessment & Plan (1) Spinal stenosis, lumbar region with neurogenic claudication: Patient still has symptoms postop day 1 per we will continue with GI DVT prophylaxis as well as pain control. We will get her up and walking with physical therapy. Her symptoms should continue to improve during her hospital stay. We will see her tomorrow morning to see how she is doing she will likely be with us at least until Tuesday. Subjective Patient was seen bedside postoperative #1. She is still having admixture both back pain and right radicular complaints as well. She is somewhat nauseous this morning but is passing gas. She has no other complaints at this point. She denies any other numbness, tingling, or paresthesias. Physical Exam Physical Exam: On exam the patient is alert and oriented. Her abdomen soft nontender. Her calves are supple nontender. Her strength is 5 out of 5 to detailed muscle testing without exception. Sensations intact light touch. Her dressing is clean dry and intact. Results & Data Vital Signs (Past 12 Hours) Vital Signs Temp Pulse Resp BP Pulse Ox 05/26/19 07:30 37.4 C 94 H 19 159/69 H 94 05/26/19 03:00 37.4 C 95 H 16 124/74 94 05/25/19 22:55 37.3 C 79 18 149/78 H 96
[2019-05-26] MEDS ORDERED: METOPROLOL TARTRATE 25 MG PO SCH (09:00)
[2019-05-26] MEDS ORDERED: POTASSIUM CHLORIDE 20 MEQ TABCR PO SCH (09:00)
[2019-05-26] MEDS ORDERED: ESTRADIOL PO SCH (09:00)
[2019-05-26] MEDS: OXYCODONE HCL IR 5 MG TAB (IMMEDIATE RELEASE) PO PRN ×2 (09:02→17:13)
[2019-05-26] MEDS: LINZESS 290 MCG SCH ×3 (09:16→23:19)
[2019-05-26] MEDS: ROSUVASTATIN CALCIUM 20 MG TAB PO SCH (09:18)
[2019-05-26] MEDS: DULOXETINE HCL 60 MG CAP PO SCH ×2 (09:18→21:19)
[2019-05-26] MEDS: LOSARTAN POTASSIUM 50 MG TAB PO SCH (09:18)
[2019-05-26] MEDS: ESTRADIOL 1 MG TAB PO SCH (09:18)
[2019-05-26] MEDS: PANTOprazole 40 MG TAB PO SCH ×2 (09:19→21:20)
[2019-05-26] MEDS: MULTIVITAMIN TAB PO SCH (09:19)
[2019-05-26] MEDS: RANOLAZINE 500 MG ER TAB PO SCH ×2 (09:19→21:21)
[2019-05-26] MEDS: INSULIN ASPART 100 UNITS/ML 3 ML PEN SC SCH ×4 (09:21→21:28)
[2019-05-26] MEDS: TOPIRAMATE 100 MG TAB PO SCH ×2 (09:58→21:21)
--- NOTE | 2019-05-26 10:31 | Anesthesiology Progress Note ---
Date of Service May 26, 2019 Anesthesia Post Procedure Vital Signs Vital Signs: Temp Pulse Resp BP Pulse Ox 05/26/19 07:30 37.4 C 94 H 19 159/69 H 94 05/26/19 03:00 37.4 C 95 H 16 124/74 94 05/25/19 22:55 37.3 C 79 18 149/78 H 96 05/25/19 16:45 36.7 C 71 17 150/76 H 98 05/25/19 15:46 36.5 C 73 17 139/83 96 05/25/19 14:38 36.7 C 69 18 122/66 96 05/25/19 14:16 36.7 C 72 20 129/76 95 05/25/19 14:00 36.7 C 74 15 135/72 94 05/25/19 13:30 75 19 130/66 93 05/25/19 13:20 36.7 C 75 13 138/68 94 05/25/19 13:10 75 19 129/62 94 05/25/19 13:00 73 20 117/61 94 05/25/19 12:50 71 20 125/59 L 96 05/25/19 12:40 71 19 136/68 96 05/25/19 12:30 36.8 C 76 14 149/68 H 96 Pain Intensity Lower Back: Pain Intensity: 8 Transfer of Care Handoff Completed per policy Notes Mental Status: alert / awake / arousable and participated in evaluation Patient Amnestic to Procedure: Yes Nausea / Vomiting: see Notes below (pt receiving antiemetics for mild to moderate nausea) Pain: adequately controlled Airway Patency, RR, SpO2: stable & adequate BP & HR: stable & adequate Hydration State: stable & adequate Anesthetic Complications: no major complications apparent
--- NOTE | 2019-05-26 15:48 | Hospitalist Progress Note ---
Date of Service May 26, 2019 Assessment & Plan (1) H/O lumbosacral spine surgery: Patient is a 64 yr F with H/O CAD, HTN, DM II, GERD and other medical problems listed below who underwent decompression and fusion by Dr. Segura. S/P L2-L4 decompression and fusion by Dr. Segura POD #1 Monitor for postop anemia Pain control, activity, DVT prophylaxis, wound care as per primary team Continue bowel regimen to prevent constipation PT/OT (2) Hypertension: Blood pressure slightly elevated likely secondary to pain Continue losartan, Lopressor (3) Diabetes mellitus, type 2: Recent A1c of 5.9 Hold home agents Continue insulin therapy while hospitalized Monitor BSG AC HS (4) CAD (coronary artery disease): Had cardiac catheterization 3 years ago with normal coronaries Continue Ranexa (5) GERD (gastroesophageal reflux disease): Continue PPI (6) Hyperlipidemia: Continue statin (7) Depression: Continue Cymbalta DVT Px: Per primary service PCP: Alecia ([place]) Disposition: As per Primary Team Subjective Patient is seen and examined at bedside Back pain is slightly better States having poor sleep Nauseous this morning Denies any chest pain, shortness of breath, dizziness, abdominal pain Positive flatus, no bowel movement yet Family at bedside Offers no other complaints Review of Systems Review of Systems: All systems reviewed & are unremarkable except as noted in HPI & below Physical Exam Physical Exam: General Appearance: WD/WN, no apparent distress, resting comfortably Head: normocephalic, atraumatic Eyes: normal inspection, PERRL, EOMI Neck: supple, no JVD, no adenopathy Respiratory/Chest: Normal Breath Sounds, CTA, Cardiovascular: S1, S2, No murmur Abdomen/GI: normal bowel sounds, soft, non-tender to palpation Extremities/Musculoskelatal: No pedal edema Back: Surgical site in dressing, + drain Neurologic/Psych: AAO X3, no focal deficits Skin: normal color, warm/dry Results & Data Vital Signs (Past 12 Hours) Vital Signs Temp Pulse Resp BP Pulse Ox 05/26/19 14:59 36.9 C 71 17 156/84 H 97 05/26/19 12:01 36.8 C 70 17 153/81 H 98 05/26/19 07:30 37.4 C 94 H 19 159/69 H 94 Laboratory Results Short CBC 05/26/19 Range/Units 05:32 WBC 10.07 (4.8-10.8) K/uL Hgb 10.1 L (12.0-16.0) g/dL Hct 29.8 L (37-47) % Plt Count 133 (130-400) K/uL BMP 05/26/19 05:32 Sodium 140 Potassium 3.6 Chloride 111 H Carbon Dioxide 22 BUN 16 Creatinine 0.67 Glucose 103 H Calcium 8.0 L
[2019-05-26] MEDS: POTASSIUM CHLORIDE 20 MEQ TABCR PO SCH (21:20)
[2019-05-26] MEDS: DOCUSATE SODIUM/SENNA 50/8.6MG TAB PO SCH (21:21)
[2019-05-26] MEDS: ROPINIROLE HCL 1 MG TABLET PO SCH (21:21)
[2019-05-26] MEDS: HYDROmorphone INJ 0.5 MG/0.5 ML SYR IV PRN (22:19)
[2019-05-27] MEDS: POLYETHYLENE (MIRALAX) 17 GM PACK PO SCH ×3 (05:44→17:09)
[2019-05-27] MEDS: OXYCODONE HCL IR 5 MG TAB (IMMEDIATE RELEASE) PO PRN ×2 (05:48→17:10)
[2019-05-27 05:52] LABS: Hematocrit (blood only) 29.3 % (37-47); Hemoglobin 9.9 g/dL (12.0-16.0)
--- NOTE | 2019-05-27 07:40 | Orthopedic Progress Note ---
Date of Service May 27, 2019 Assessment & Plan (1) Spinal stenosis, lumbar region with neurogenic claudication: Patient is doing well postoperative day #2. We will continue with GI DVT prophylaxis. She should progress with physical therapy. We will continue to monitor her SIMON output. We will see her tomorrow in all likelihood will be able to discharge her. Subjective Patient is postoperative day #2. She is doing much better today. The pain leve ls are better controlled. She is not nauseous today. She has been up and walking with physical therapy. She denies any radicular complaints at this point. She denies any other numbness, tingling, or paresthesias. Physical Exam Physical Exam: On exam the patient is alert and oriented. Her dressing is clean dry and intact. Her SIMON drain is in place and holding suction. Her calves are supple nontender her abdomen is supple and nontender strength and sensation are both intact. Results & Data Vital Signs (Past 12 Hours) Vital Signs Temp Pulse Resp BP Pulse Ox 05/26/19 23:10 37 C 86 16 145/78 H 94
[2019-05-27] MEDS: LINZESS 290 MCG SCH ×2 (08:41→15:22)
[2019-05-27] MEDS: TOPIRAMATE 100 MG TAB PO SCH ×2 (08:43→21:01)
[2019-05-27] MEDS: RANOLAZINE 500 MG ER TAB PO SCH ×2 (08:43→21:00)
[2019-05-27] MEDS: DULOXETINE HCL 60 MG CAP PO SCH ×2 (08:43→20:59)
[2019-05-27] MEDS: ROSUVASTATIN CALCIUM 20 MG TAB PO SCH (08:43)
[2019-05-27] MEDS: MULTIVITAMIN TAB PO SCH (08:43)
[2019-05-27] MEDS: PANTOprazole 40 MG TAB PO SCH ×2 (08:43→21:00)
[2019-05-27] MEDS: LOSARTAN POTASSIUM 50 MG TAB PO SCH (08:43)
[2019-05-27] MEDS: ESTRADIOL 1 MG TAB PO SCH (08:43)
[2019-05-27] MEDS: INSULIN ASPART 100 UNITS/ML 3 ML PEN SC SCH ×4 (09:01→21:33)
--- NOTE | 2019-05-27 18:29 | Hospitalist Progress Note ---
Date of Service May 27, 2019 Assessment & Plan (1) H/O lumbosacral spine surgery: Patient is a 64 yr F with H/O CAD, HTN, DM II, GERD and other medical problems listed below who underwent decompression and fusion by Dr. Segura. S/P L2-L4 decompression and fusion by Dr. Segura POD #2 Monitor for postop anemia Pain control, activity, DVT prophylaxis, wound care as per primary team Continue bowel regimen for constipation PT/OT Likely discharge tomorrow as per primary team (2) Hypertension: Blood pressure slightly elevated likely secondary to pain Continue losartan, Lopressor (3) Diabetes mellitus, type 2: Recent A1c of 5.9 Hold home agents Continue insulin therapy while hospitalized Monitor BSG AC HS (4) CAD (coronary artery disease): Had cardiac catheterization 3 years ago with normal coronaries Continue Ranexa (5) GERD (gastroesophageal reflux disease): Continue PPI (6) Hyperlipidemia: Continue statin (7) Depression: Continue Cymbalta DVT Px: Per primary service PCP: Alecia Gordillo) Disposition: As per Primary Team Subjective Patient is seen and examined at bedside Back pain is well controlled No bowel movement yet Nausea improved Denies any chest pain, shortness of breath, dizziness, abdominal pain Review of Systems Review of Systems: All systems reviewed & are unremarkable except as noted in HPI & below Physical Exam Physical Exam: General Appearance: WD/WN, no apparent distress, resting comfortably Head: normocephalic, atraumatic Eyes: normal inspection, PERRL, EOMI Neck: supple, no JVD, no adenopathy Respiratory/Chest: Normal Breath Sounds, CTA, Cardiovascular: S1, S2, No murmur Abdomen/GI: normal bowel sounds, soft, non-tender to palpation Extremities/Musculoskelatal: No pedal edema Back: Surgical site in dressing, + drain Neurologic/Psych: AAO X3, no focal deficits Skin: normal color, warm/dry Results & Data Vital Signs (Past 12 Hours) Vital Signs Temp Pulse Resp BP Pulse Ox 05/27/19 15:00 37.0 C 87 17 125/81 92 05/27/19 07:32 37.9 C H 83 18 138/85 96 Laboratory Results Short CBC 05/27/19 Range/Units 05:28 Hgb 9.9 L (12.0-16.0) g/dL Hct 29.3 L (37-47) %
[2019-05-27] MEDS: POTASSIUM CHLORIDE 20 MEQ TABCR PO SCH (20:59)
[2019-05-27] MEDS: ROPINIROLE HCL 1 MG TABLET PO SCH (21:00)
[2019-05-27] MEDS: DOCUSATE SODIUM/SENNA 50/8.6MG TAB PO SCH (21:00)
[2019-05-27] MEDS: HYDROmorphone INJ 0.5 MG/0.5 ML SYR IV PRN (22:18)
[2019-05-28] MEDS: POLYETHYLENE (MIRALAX) 17 GM PACK PO SCH ×2 (00:50→06:00)
[2019-05-28] MEDS: LINZESS 290 MCG SCH ×2 (00:50→07:43)
[2019-05-28 05:48] LABS: Hematocrit (blood only) 31.4 % (37-47); Hemoglobin 10.5 g/dL (12.0-16.0)
[2019-05-28] MEDS: MULTIVITAMIN TAB PO SCH (07:45)
[2019-05-28] MEDS: DULOXETINE HCL 60 MG CAP PO SCH (07:45)
[2019-05-28] MEDS: INSULIN ASPART 100 UNITS/ML 3 ML PEN SC SCH (07:46)
[2019-05-28] MEDS: RANOLAZINE 500 MG ER TAB PO SCH (07:46)
[2019-05-28] MEDS: LOSARTAN POTASSIUM 50 MG TAB PO SCH (07:46)
[2019-05-28] MEDS: TOPIRAMATE 100 MG TAB PO SCH (07:46)
[2019-05-28] MEDS: ESTRADIOL 1 MG TAB PO SCH (07:46)
[2019-05-28] MEDS: PANTOprazole 40 MG TAB PO SCH (07:46)
[2019-05-28] MEDS: ROSUVASTATIN CALCIUM 20 MG TAB PO SCH (07:46)
[2019-05-28] MEDS: OXYCODONE HCL IR 5 MG TAB (IMMEDIATE RELEASE) PO PRN (09:44)
--- NOTE | 2019-05-28 10:41 | Anesthesiology Progress Note ---
Date of Service May 28, 2019 Anesthesia Post Procedure Vital Signs Vital Signs: Temp Pulse Resp BP Pulse Ox 05/28/19 09:19 37.0 C 86 16 141/84 H 97 05/28/19 06:37 37.0 C 86 16 141/84 H 97 05/27/19 23:00 36.9 C 80 16 114/74 94 05/27/19 15:00 37.0 C 87 17 125/81 92 Pain Intensity Lower Back: Pain Intensity: 3 Notes Mental Status: alert / awake / arousable Patient Amnestic to Procedure: Yes Nausea / Vomiting: improving with treatment Pain: adequately controlled Airway Patency, RR, SpO2: stable & adequate BP & HR: stable & adequate Hydration State: stable & adequate Anesthetic Complications: no major complications apparent
--- NOTE | 2019-05-28 11:16 | Discharge Summary ---
Date of Service May 28, 2019 Admission HPI Per Admitting Provider This is a 64-year-old female presents with chronic persistent back and bilateral leg pain. After failing extensive course of nonoperative care she is here for surgical intervention. Principal Diagnosis Lumbar spinal stenosis with neurogenic claudication Discharge Data Allergies Allergy/AdvReac Type Severity Reaction Status Date / Time ampicillin Allergy Intermediate SWELLING Verified 05/25/19 09:03 OF LIPS pregabalin [From Lyrica] Allergy Intermediate Swelling Verified 05/25/19 09:03 of extremities vancomycin Allergy Intermediate ITCHINESS Verified 05/25/19 09:03 AND SKIN REDNESS Consultations 05/25/19 13:54 Consult Case Management - Discharge Planning Routine Consult Hospitalist Routine Procedures Performed Operation Date: 05/25/19 09:55 Actual Procedures p L2-L3, L3-L4 Decompression and Fusion with Spinal Cord Monitoring, Interbody Cage Insertion L3-4(Not Applicable) - Leandro Segura DO Ordered Studies 05/25/19 09:55 FL fluoroscopy <1hr Routine FL lumbar spine 2-3V Routine Hospital Course (1) Spinal stenosis, lumbar region with neurogenic claudication: Patient with multilevel lumbar decompression and fusion tolerated as well as taken to orthopedic for postoperative. Postop day and when she was up and in bleeding progressed to postop day #2. SIMON drain decreasing probably. Subsequently discharged on postop day #3. Discharge orders instructions from the chart for further review. Total Time Total Time Spent Total Time Spent (In Minutes): 20 minutes Discharge Plan Discharge Items Patient Disposition: Home - Self-Care Reason For Visit: LUMBAR SPINAL STENOSIS W/NEUROGENIC CLAUDICATION Discharge Diagnosis: Lumbar spinal stenosis with neurogenic claudication Discharge Goals: Improve function Activity: Per 'Additional Instructions' section Non-emergency contact: Primary Care Provider Call non-emergency contact if: you have any medication questions Follow-up/Referrals: Shin Alston DO [Primary Care Provider] - Diet: Regular Addtl Provider Instructions: ACTIVITY RECOMMENDATIONS: SELF CARE INSTRUCTIONS AFTER THORACIC/LUMBAR FUSIONS 1. You may walk to your tolerance. It is good exercise for your legs and back. Expect some back and intermittent leg aches and pains. 2. You may perform "counter-top" level activities (make a sandwich, danis with a project, etc.). 3. No bending or lifting of more than 10 pounds or back twisting of any nature (roll like a log when turning in bed). 4. You may ride in a car for 20-30 minutes at a time. No driving until after your first visit with your doctor. 5. Frequent changes of position and restricting sitting to 30 minutes at a time will help limit the amount of back spasms and stiffness you may experience. 6. You may discontinue the use of ambulatory aids (cane, crutches, etc.) once your strength and confidence allow. 7. You may edging catcher the shower and let water strike your incision when you arrive home at least once daily. Do not take a tub bath, sit in a hot tub or go into a swimming pool until after your first recheck in the office. SPECIAL CARE INSTRUCTIONS: VERY IMPORTANT TO READ AND REVIEW A. Your surgical incision has been closed with a cosmetic suture under the skin that will dissolve in about 6 weeks. In 14 days, you can use a pair of clean scissors and cut the suture that is left outside of the skin at the ends of your incision. 1. The small skin tapes can be removed 7 days after surgery if they have not fallen off by that point. 2. You may keep the wound open to air as much as possible to promote healing after post-op day number 5 unless told otherwise by your doctor. 3. If you think the wound looks like it is becoming infected (redness or worsening drainage) and/or you are experiencing fever, chill or worsening back pain and muscle spasms, contact the office so that we may evaluate you as soon as possible. B. Complications are uncommon, but please contact us if you have any signs or symptoms of: 1. wound infection (fever higher than 102.5 degrees F, redness, separation of wound, drainage, or increasing pain from the incision) 2. blood clots in legs (pain, swelling, redness and warmth in legs) 3. urinary tract infection (fever higher than 102.5 degrees F, burning upon urination or increased frequency of urination) 4. nerve problems (inability to walk on your toes or heels, numbness, loss of bowel or bladder control) 5. any other symptoms that concern you C. Please call the office at if you have any concerns or questions about your operation or recovery. D. No smoking! Smoking drastically decreases the chance of a solid fusion. E. Do not take any anti-inflammatory medications (Indocin, Advil, Motrin, Aspirin, Naprosyn, etc.) as these may inhibit the chance of a solid fusion. Tylenol is okay to take for pain. MANAGING PAIN AFTER SPINAL SURGERY 1. Narcotic medication is intended for short-term use and will be provided for surgical pain. Surgical pain usually lasts for a period of 4-6 weeks. Narcotic medication includes Percocet, Vicodin, Darvocet, Tylenol #3 or Lortab. 2. Longer-term pain is more appropriately treated with non-narcotic medication such as Tylenol ES. 3. Muscle spasm is not appropriately treated with narcotics. Muscle relaxers such as Soma, Flexeril or Skelaxin can be used along with Tylenol ES. 4. Remember that we all live with some "aches and pains". This is not unusual or uncommon after an injury or as we get older. a. Back pain is expected and may include muscle spasms for 4 to 6 weeks after surgery. The pain should gradually improve. If the pain worsens for no apparent reason, please contact the office. b. Intermittent leg pain may also be experienced and should not be concerned about unless it worsens for no apparent reason. If so, please contact the office. 5. We will provide appropriate medication within the normal guidelines of their prescribed use. We will also be very cautious and aware of potential abuse and extended duration of patients' medication needs. a. Pain medications are for your comfort and to assist with sleep and rest so that the tissue can heal. They are not provided in order to return to normal activity and should not be used through the day. To do so or worsening pain at night can result from ongoing tissue damage and development of tolerance to the prescribed medicine. 6. Please allow 2-3 days to process refills. Prescriptions will not be mailed but must be picked up at the office. FOLLOW UP VISIT: Keep your scheduled follow-up appointment. Any questions, please call the office at . Prescriptions: New tramadol 50 mg Tablet 50 mg PO Q4H PRN (Reason: Pain, Moderate) Qty: 30 RF: 0 oxycodone 5 mg Tablet 5 mg PO Q4H PRN (Reason: Pain, Severe) Qty: 30 RF: 0 Continued pantoprazole 20 mg Tablet,Delayed Release (Dr/Ec) 20 mg PO BID RF: 0 gabapentin 300 mg Tablet Extended Release 24 Hr 600 mg PO TID RF: 0 Linzess 290 mcg Capsule 290 mcg PO QAM RF: 0 PreserVision AREDS-2 [phone] Capsule 1 tab PO HS RF: 0 ropinirole [Requip] 3 mg Tablet 2 mg PO HS RF: 0 orphenadrine citrate 100 mg Tablet Extended Release 100 mg PO BID RF: 0 multivitamin Tablet 1 tab PO DAILY RF: 0 losartan 50 mg Tablet 50 mg PO DAILY RF: 0 estradiol 2 mg Tablet 1 mg PO DAILY RF: 0 Gaviscon Extra Strength 160-105 mg Tablet,Chewable 1 tab PO DAILY RF: 0 topiramate [Topamax] 100 mg Tablet 100 mg PO BID RF: 0 metformin 750 mg Tablet Extended Release 24 Hr 750 mg PO BID RF: 0 rosuvastatin [Crestor] 20 mg Tablet 20 mg PO DAILY RF: 0 metoprolol tartrate 25 mg Tablet 25 mg PO DAILY RF: 0 duloxetine [Cymbalta] 60 mg Capsule,Delayed Release(Dr/Ec) 60 mg PO BID RF: 0 ranolazine [Ranexa] 1,000 mg Tablet Extended Release 12 Hr 1,000 mg PO BID RF: 0 potassium chloride 20 mEq Tablet Extended Release 20 meq PO DAILY RF: 0 Stand-Alone Forms: [facility] [address], Opioid Pain Management [facility]/Other Patient Handouts: Safety Back Into and Out Bed Discharge Orders: Discharge Order (Routine); Ordered 05/28/19 Ordered By: Leandro Segura Admission Data Admit Date/Time: 05/25/19 12:06 Attending Provider: Leandro Segura Admit Provider: Leandro Segura Primary Care Provider: Shin Alston Other Providers: Jeremiah Kendrick ; Ryan De La Torre Service: Surgical Services Other Interventions: Discharge Summary Assessment (RN) Last Done: 05/28/19 09:19
--- NOTE | 2019-05-28 13:32 | Hospitalist Progress Note ---
Date of Service May 28, 2019 Assessment & Plan (1) H/O lumbosacral spine surgery: Patient is a 64 yr F with H/O CAD, HTN, DM II, GERD and other medical problems listed below who underwent decompression and fusion by Dr. Segura. S/P L2-L4 decompression and fusion by Dr. 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 Continue insulin therapy while hospitalized Monitor BSG AC HS (4) CAD (coronary artery disease): Had cardiac catheterization 3 years ago with normal coronaries Continue Ranexa (5) GERD (gastroesophageal reflux disease): Continue PPI (6) Hyperlipidemia: Continue statin (7) Depression: Continue Cymbalta DVT Px: Per primary service PCP: Alecia Gordillo) Disposition: As per Primary Team Subjective Patient is seen and examined at bedside Plan to be discharged home today Offers no complaints Denies any back pain Had bowel movement Nausea Resolved Denies any chest pain, shortness of breath, dizziness, abdominal pain Review of Systems Review of Systems: All systems reviewed & are unremarkable except as noted in HPI & below Physical Exam Physical Exam: General Appearance: WD/WN, no apparent distress, resting comfortably Head: normocephalic, atraumatic Eyes: normal inspection, PERRL, EOMI Neck: supple, no JVD, no adenopathy Respiratory/Chest: Normal Breath Sounds, CTA, Cardiovascular: S1, S2, No murmur Abdomen/GI: normal bowel sounds, soft, non-tender to palpation Extremities/Musculoskelatal: No pedal edema Back: Surgical site in dressing Neurologic/Psych: AAO X3, no focal deficits Skin: normal color, warm/dry Results & Data Vital Signs (Past 12 Hours) Vital Signs Temp Pulse Resp BP Pulse Ox 05/28/19 09:19 37.0 C 86 16 141/84 H 97 05/28/19 06:37 37.0 C 86 16 141/84 H 97 Laboratory Results Short CBC 05/28/19 Range/Units 05:21 Hgb 10.5 L (12.0-16.0) g/dL Hct 31.4 L (37-47) %
== END 2019-05-28 12:52 | disposition home or self-care (01) | DRG 455 ==
LOC: ASU 08:37 → 3E 12:06

== ENCOUNTER 2021-04-29 12:40 | Inpatient (IN) ==
--- NOTE | 2021-04-26 15:46 | History & Physical Report ---
Date of Service April 26, 2021 Assessment & Plan (1) Primary osteoarthritis, left shoulder: Treatment options discussed with patient. She has failed conservative measures and would like to proceed with surgical intervention. Risks, benefits and alternatives to surgery including but not limited to infection, DVT, pain, stiffness, need for revision surgery, damage to blood vessels, damage to nerves, PE, , were discussed with the patient and they wish to proceed. Plan on left total shoulder arthroplasty, distal clavicle excision, subacromial decompress, needle barbotage of calcific tendonitis. Surgery scheduled for [facility] on 04/29/[address] Roy. Will plan on OPPT post discharge from the hospital. All questions answered. Follow up post operatively. History of Present Illness Chief Complaint: Left shoulder pain Primary Care Provider: Shin Alston, DO 65 year old female with PMHx significant for HTN, high cholesterol, DM2, GERD, anxiety, and CAD post heart cath, and diverticulosis who presents with longstanding left shoulder pain. She has failed conservative measures including injections and would like to proceed with replacement. Pain is interfering with her daily and leisure activities. Patient denies headaches, sweats, fevers, chills, double vision, blurred vision, cough, sore throat, dysphagia, chest pain, sob, wheezing, n/v/d/c, numbness, tingling, fatigue, urinary symptoms, mood disorders. ROS positive for left shoulder pain and stiffness. Allergies Allergy/AdvReac Type Severity Reaction Status Date / Time ampicillin Allergy Intermediate SWELLING Verified 04/24/21 16:09 OF LIPS pregabalin [From Lyrica] Allergy Intermediate Swelling Verified 04/24/21 16:09 of extremities vancomycin Allergy Intermediate ITCHINESS Verified 04/24/21 16:09 AND SKIN REDNESS Home Medications Medication Instructions Recorded Confirmed Type Linzess 290 mcg PO QAM 05/04/19 04/24/21 History PreserVision AREDS-2 1 tab PO HS 05/04/19 04/24/21 History gabapentin 600 mg PO TID 05/04/19 04/24/21 History pantoprazole 20 mg PO BID 05/04/19 04/24/21 History Gaviscon Extra Strength 1 tab PO DAILY PRN 05/25/19 04/24/21 History losartan 50 mg PO QAM 05/25/19 04/24/21 History metoprolol tartrate 25 mg PO QAM 05/25/19 04/24/21 History multivitamin 1 tab PO QPM 05/25/19 04/24/21 History potassium chloride 20 meq PO QAM 05/25/19 04/24/21 History ranolazine [Ranexa] 1,000 mg PO BID 05/25/19 04/24/21 History rosuvastatin [Crestor] 20 mg PO QAM 05/25/19 04/24/21 History tramadol 50 mg PO Q4H PRN #30 tab 05/28/19 04/24/21 Rx metformin 750 mg tablet,extended 750 mg PO BID #180 tab 10/25/19 04/24/21 Rx release 24 hr duloxetine 60 mg capsule,delayed 60 mg PO BID cap 06/03/20 04/24/21 History release ibuprofen 800 mg tablet 800 mg PO Q8H PRN 06/03/20 04/24/21 History ropinirole 3 mg tablet 6 mg PO HS tab 06/03/20 04/24/21 History Prevagen 1 dose PO QPM 02/02/21 04/24/21 History aspirin [Adult Low Dose Aspirin] 81 mg PO QAM 02/02/21 04/24/21 History Past Med/Surg History Medical History Anxiety CAD (coronary artery disease) follows with Dr. Kendrick. Patient has long h/o chest pain syndrome. "Essentially normal coronary arteries" on 2013 cardiac cath Depression Diabetes mellitus, type 2 NIDDM GERD (gastroesophageal reflux disease) H/O chest pain Per cardio, relieved by Ranexa, though pt had "normal" coronary arteries on 2013 cath. Hiatal hernia Hyperlipidemia Hypertension Incontinent of urine Macular degeneration BL Multiple thyroid nodules Nutcracker esophagus Slow to wake up after anesthesia Pt denies h/o ICU transfer or reintubation, but reports she was admitted after her lap jacques when she was supposed to go home same-day. Surgical History History of back surgery X3 History of cardiac cath March 2021 [facility] - failed stress test - no stents/angioplasty 2012 [place]. No intervention performed. "Essentially normal coronary arteries" per cardio. History of fusion of cervical spine Limited ROM side to side History of right knee joint replacement X3- 2 revisions Hx of bilateral breast reduction surgery Hx of cholecystectomy Hx of total hysterectomy S/P thyroid biopsy benign Family History Mother , at 52. Heart disease Hypercholesteremia Hypertension Blood clot in vein Father , at 76 Lymphoma Lung cancer Asthma Sister Heart disease Multiple sclerosis Slow to wake up after anesthesia Sister Diabetes Heart disease Thyroid disease Brother Heart disease Sister Heart disease Hot thyroid nodule Brother Diabetes Heart disease Other Cancer Social History Smoking Status: Never smoker Second Hand Exposure: No; Hx Alcohol Use: Yes Alcohol type: beer and wine Hx Substance Use: No Preferred Language: Turkish Communication Ability: Effective Tile Edger Required: No Beliefs That Will Affect Care: None marital status: Current Living Situation: Spouse Feels Safe at Home: Yes Assistive Devices: Contacts, Denture - Upper, Denture - Lower and Glasses Review of Systems All systems reviewed & are unremarkable except as noted in HPI & below Physical Exam 2 Constitutional: well developed and well nourished; no acute distress Eyes: PERRL, conjunctivae normal, anicteric sclerae ENMT: external ear and nose normal, oropharynx normal Neck: trachea midline, no thyromegaly Respiratory: normal respiratory effort, lungs clear to auscultation Cardiovascular: RRR, no murmur, no edema Musculoskeletal: Left shoulder: Active painful ROM. FF to 100 degrees, abduction to 70 degrees, 15 degrees of ER. Postive impingement signs, positive cross body and O'briens. Diffuse tenderness about her AC joint, anterior- inferior acromion, anterior glenoid. Strength equal bilaterally Skin: no rashes, warm and dry Neurologic: patellar DTR's 2+ bilat, sensation intact Psychiatric: A+Ox3, euthymic affect Results & Data ([facility]) Diagnostic Findings X-rays of her left shoulder demonstrate that she has a type II acromion on outlet view. Has moderate AC joint osteoarthritis. Has an inferior spur on the acromion extending into the CA ligament that would cause impingement. There is a calcific deposit in the rotator cuff supraspinatus tendon consistent with calcific tendonitis. There is advanced glenohumeral osteoarthritis and type A concentric wear with large humeral periarticular osteophytes. MRI confirms intact rotator cuff with calcific tendonitis. Severe GH joint OA on MRI.
--- NOTE | 2021-04-27 11:51 | Anesthesiology Consultation ---
Date of Service April 27, 2021 Assessment & Plan (1) Encounter for pre-operative examination: Chart Review Chart Review: Acceptable Risk for Surgery (pending preop Covid testing results ) and Patient NOT seen in Pre Admission Testing - Check BSG AM DOS Per nursing assessment 04/24/2021, patient denies any recent travel. No known Covid infection in the past 90 days. No known Covid positive contacts or Covid related symptoms. Preop Covid testing scheduled 04/27/2021 = will await results. Seen by cardiology 04/07/2021 = seen for cardiology follow-up visit. Anticipating left shoulder replacement on 04/29/2021had recent left heart catheterization which demonstrated angiographically normal coronary arteries. " I see no cardiac contraindications to proceeding on with planned left shoulder replacement. I would recommend perioperative cardiac monitoring. She should receive her beta-marcelino the morning of surgery with a sip of water." L2-L4 decompression with fusion 05/25/2019 = done under [facility] with grade 1 view with MAC #3. ETT #7.0. No anesthesia issues noted per anesthesia record. History Surgery Operation Date: 04/29/21 12:00 Proposed Procedures p Left Total Shoulder Arthroplasty, Distal Clavicle Excision, Biceps Tenodesis, Subacromial Decompression, Needle Barbotage Calcific Deposit - Greg Roy MD Height/Weight Height: 5 ft 2 in Weight: 90.718 kg Allergies Allergy/AdvReac Type Severity Reaction Status Date / Time ampicillin Allergy Intermediate SWELLING Verified 04/24/21 16:09 OF LIPS pregabalin [From Lyrica] Allergy Intermediate Swelling Verified 04/24/21 16:09 of extremities vancomycin Allergy Intermediate ITCHINESS Verified 04/24/21 16:09 AND SKIN REDNESS Medications Home Medications Medication Instructions Recorded Confirmed Last Taken Linzess 290 mcg PO QAM 05/04/19 04/24/21 05/24/19 08:00 PreserVision AREDS-2 1 tab PO HS 05/04/19 04/24/21 05/17/19 21:00 gabapentin 600 mg PO TID 05/04/19 04/24/21 05/25/19 07:00 pantoprazole 20 mg PO BID 05/04/19 04/24/21 05/25/19 07:00 Gaviscon Extra Strength 1 tab PO DAILY PRN 05/25/19 04/24/21 Unknown losartan 50 mg PO QAM 05/25/19 04/24/21 Unknown metoprolol tartrate 25 mg PO QAM 05/25/19 04/24/21 Unknown multivitamin 1 tab PO QPM 05/25/19 04/24/21 Unknown potassium chloride 20 meq PO QAM 05/25/19 04/24/21 Unknown ranolazine [Ranexa] 1,000 mg PO BID 05/25/19 04/24/21 Unknown rosuvastatin [Crestor] 20 mg PO QAM 05/25/19 04/24/21 Unknown tramadol 50 mg PO Q4H PRN #30 tab 05/28/19 04/24/21 Unknown metformin 750 mg tablet,extended 750 mg PO BID #180 tab 10/25/19 04/24/21 Unknown release 24 hr duloxetine 60 mg capsule,delayed 60 mg PO BID cap 06/03/20 04/24/21 Unknown release ibuprofen 800 mg tablet 800 mg PO Q8H PRN 06/03/20 04/24/21 Unknown ropinirole 3 mg tablet 6 mg PO HS tab 06/03/20 04/24/21 Unknown Prevagen 1 dose PO QPM 02/02/21 04/24/21 Unknown aspirin [Adult Low Dose Aspirin] 81 mg PO QAM 02/02/21 04/24/21 Unknown Past Medical History Medical History Anxiety CAD (coronary artery disease) Angiographically normal coronary arteries per 03/10/21 cardiac cath Depression Diabetes mellitus, type 2 NIDDM GERD (gastroesophageal reflux disease) H/O chest pain Per cardio, hx of chest pain syndrome possible secondary to syndrome X- relieved by Ranexa Angiographically normal coronary arteries per 03/10/21 cardiac cath Hiatal hernia Hyperlipidemia Hypertension Incontinent of urine Macular degeneration BL Multiple thyroid nodules Nutcracker esophagus Slow to wake up after anesthesia Pt denies h/o ICU transfer or reintubation, but reports she was admitted after her lap jacques when she was supposed to go home same-day. (2006 at [facility] per cardio note) Past Family History Family History Mother , at 52. Heart disease Hypercholesteremia Hypertension Blood clot in vein Father , at 76 Lymphoma Lung cancer Asthma Sister Heart disease Multiple sclerosis Slow to wake up after anesthesia Sister Diabetes Heart disease Thyroid disease Brother Heart disease Sister Heart disease Hot thyroid nodule Brother Diabetes Heart disease Other Cancer Past Surgical History Surgical History (Updated 04/27/21 @ 11:49 by Aubree Talbert PA-C) History of back surgery X3 History of cardiac cath March 2021 [facility]- no stents/angioplasty 2012 [place]. No intervention performed. "Essentially normal coronary arteries" per cardio. History of fusion of cervical spine Limited ROM side to side History of right knee joint replacement X3- 2 revisions Hx of bilateral breast reduction surgery Hx of cholecystectomy Hx of total hysterectomy S/P thyroid biopsy benign Social History Smoking Status: Never smoker Do You Dip or Chew Tobacco: No Hx Alcohol Use: Yes Alcohol type: beer and wine alcohol intake frequency: holidays/special occasions only Hx Substance Use: No substance use type: does not use Testing Laboratory Results 04/02/21= WBC: 7.13 H/H: 12.6/39.0 PLATELETS: 198 SODIUM: 140 POTASSIUM: 4.2 CHLORIDE: 110 CO2: 23.0 BUN: 10.4 CREATININE: 0.82 GLUCOSE: 90 HGB A1C: 5.5 PT: 11.2 PTT: 32.3 INR: 1.03 UA: 10,000- 3 colony types probable contaminants Electrocardiogram Date: 04/07/21 Findings: + NSR @ (68 bpm) Poor R wave progression per cardiology. Chest X-Ray Date: 02/11/21 Findings: + NAD Echocardiogram Date: 02/18/21 EF: 55% LV Function: normal RWMA: + none Other Findings: + LVH (Borderline) Mild sclerotic changes involving both the aortic and mitral valve leaflets. Trace to mild mitral and tricuspid valvular insufficiency. Stress Test Date: 02/18/21 Type: nuclear Abnormal myocardial perfusion SPECT images without evidence for pharmacologically induced lateral ischemia. Moderately large, moderately dense, lateral perfusion defect seen on the stress images with evidence for reperfusion on the resting images. Normal left ventricular wall motion and thickening. Normal left ventricular ejection fraction post-rest at 55%. (Subsequent cardiac catheterization was done 03/10/2021ee below) Cardiac Catheterization Date: 03/10/21 LM= angiographically normal LAD = angiographically normal. Circumflex = angiographically normal. RCA = angiographically normal. Normal left ventricular systolic functionEF visually estimated at 55%. Impression: Angiographically normal coronary arteries, normal left ventriculogram. Recommend medical therapy and aggressive risk factor modification.
[~2021-04-29 12:40] MED LIST changes: +BUPIVACAINE 0.5 % 5 MG/1 ML PF 10ML VIAL ONE; -DEXAMETHASONE SOD INJ 4 MG/ML VIAL ONE; +FAMOTIDINE 20 MG TAB PO SCH; -GLYCOPYRROLATE 0.2 MG/ML VIAL ONE; -HYDROmorphone INJ 2 MG/ML SYR/VIAL ONE; -LIDOCAINE HCL 2% 2 ML VIAL/AMP(20MG/ML) INFIL ONE; +METOCLOPRAMIDE HCL 10 MG TABLET PO SCH; -MIDAZOLAM HCL 1 MG/ML 2ML VIAL ONE; -NEOSTIGMINE METHYLSULFATE 1 MG/ML 10ML VIAL ONE; -ONDANSETRON INJ 2 MG/ML 2 ML VIAL ONE; -PROPOFOL IV EMULSION 10 MG/ML 20 ML VIAL IV ONE; -ROCURONIUM BROMIDE 10 MG/ML 5 ML VIAL ONE; +TRANEXAMIC ACID 1,000 MG **IV Intra-op IV SCH; +TRANEXAMIC ACID 1,000 MG **IV Pre-op IV SCH; -fentaNYL citrate 100 MCG/2 ML VIAL ONE
[2021-04-29] MEDS ORDERED: DEXAMETHASONE SOD INJ 4 MG/ML VIAL ONE (13:11)
[2021-04-29] MEDS ORDERED: MIDAZOLAM HCL 1 MG/ML 2ML VIAL ONE (13:11)
[2021-04-29] MEDS ORDERED: PROPOFOL IV EMULSION 10 MG/ML 20 ML VIAL IV ONE (13:11)
[2021-04-29] MEDS ORDERED: LIDOCAINE 2% 2 ML VIAL/AMP(20MG/ML) INFIL ONE (13:11)
[2021-04-29] MEDS ORDERED: ONDANSETRON INJ 2 MG/ML 2 ML VIAL ONE ×2 (13:11→15:50)
[2021-04-29] MEDS ORDERED: fentaNYL citrate 100 MCG/2 ML VIAL ONE ×2 (13:11→17:26)
--- NOTE | 2021-04-29 13:23 | History & Physical Bridge Note ---
Date of Service April 29, 2021 History & Physical Bridge Note I have examined the patient, reviewed the History & Physical and in the interval since the performance of the History & Physical I have noted the following changes of clinical significance: Add biceps tendinopathy to diagnosis and biceps tenodesis to procedure.
[2021-04-29] MEDS ORDERED: EpINEphrine HCL INJ 1 MG/ML 1ML SYRINGE ONE (14:29)
[2021-04-29] MEDS ORDERED: ONDANSETRON INJ 2 MG/ML 2 ML VIAL IV PRN ×2 (14:37→19:59)
[2021-04-29] MEDS ORDERED: ATROPINE SULFATE 0.1 MG/ML 10ML SYR IV PRN (14:37)
[2021-04-29] MEDS ORDERED: fentaNYL citrate 100 MCG/2 ML VIAL IV PRN (14:37)
[2021-04-29] MEDS ORDERED: ePHEDrine sulfate 50 MG/ML AMP IV PRN (14:37)
[2021-04-29] MEDS ORDERED: PHENYLEPHRINE HCL 10 MG/ML VIAL ONE (15:24)
[2021-04-29] MEDS ORDERED: PHENYLEPHRINE 100MCG/ML 5ML SYR ONE (15:24)
[2021-04-29] MEDS ORDERED: ePHEDrine sulfate 50 MG/ML AMP ONE (15:24)
[2021-04-29] MEDS ORDERED: SODIUM CHLORIDE 0.9% INJ 10 ML VIAL ONE (15:24)
[2021-04-29] MEDS ORDERED: ROCURONIUM BROMIDE 10 MG/ML 5 ML VIAL IV ONE (15:50)
[2021-04-29] MEDS ORDERED: LARYING-O-JET KIT (LTA) ONE (15:50)
--- NOTE | 2021-04-29 18:33 | Post Operative Brief Note ---
Immediate Post Op Note v1 Date of Surgery April 29, 2021 Pre & Post Diagnosis Operation Date: 04/29/21 14:30 Pre-Op Diagnosis: Left Shoulder Osteoarthritis, Impingement Syndrome, AC joint osteoarthritis, biceps tendinopathy, calcific tendinitis, obesity BMI 39.9. Post-Op Diagnosis: Left Shoulder Osteoarthritis, Impingement Syndrome, AC joint osteoarthritis, biceps tendinopathy, calcific tendinitis, obesity BMI 39.9 I identified the patient and participated in the time-out.: Yes Procedure Operation Date: 04/29/21 14:30 Actual Procedures p Left Total Shoulder Arthroplasty, Distal Clavicle Excision, Biceps Tenodesis, Subacromial Decompression, Needle Barbotage Calcific Deposit, increased difficulty obesity 39.9 (Left) - Greg Roy MD Surgeon Greg Roy MD Farm Management Supervisor Darin MOTLEY Estimated Blood Loss 20 Findings Consistent with Post-Op Diagnosis Specimens Humeral head Drains Rosas Catheter (16 Fr Rosas inserted at 1510 by Neda Martel RN; output monitored by anesthesia) and Hemovac Drain Anesthesia Type General Regional Complications none Disposition Accompanied Patient To Recovery: No Disposition: Recovery Room Overlapping Procedure I was immediately available: during the entire case.
--- NOTE | 2021-04-29 18:55 | Operative Report ---
Post Operative Report Pre & Post Diagnosis Operation Date: 04/29/21 14:30 Pre-Op Diagnosis: Left Shoulder Osteoarthritis glenohumeral joint and acromioclavicular joint, subacromial impingement Syndrome, biceps tendinopathy, calcific tendinitis, obesity BMI 39.9 Post-Op Diagnosis: Left Shoulder Osteoarthritis glenohumeral joint and acromioclavicular joint, subacromial impingement syndrome, biceps tendinopathy, calcific tendinitis, obesity BMI 39.9 I identified the patient and participated in the time-out.: Yes Procedure Operation Date: 04/29/21 14:30 Actual Procedures p Left Total Shoulder Arthroplasty, Distal Clavicle Excision, Biceps Tenodesis, Subacromial Decompression, Needle Barbotage Calcific Deposit(Left) - Greg Roy MD Surgeon Greg Roy MD Anesthetic Assistant Darin MOTLEY Estimated Blood Loss 20 Findings Consistent with Post-Op Diagnosis Specimens Humeral head Drains 2 Hemovac Anesthesia Type General Regional Complications none Disposition Accompanied Patient To Recovery: No Disposition: Recovery Room Indications 65-year-old female with chronic left shoulder pain multiple causes of pain including severe end-stage glenohumeral osteoarthritis [id number] large osteophytes and limited range of motion and acromioclavicular joint osteoarthritis large inferior acromial spur with type III acromion causing subacromial impingement with calcific deposit in the rotator cuff and significant biceps tendinopathy. Conditions complicated by significant obesity including the shoulder area. Description of Procedure The patient was taken to the operating room and anesthetized under a general and regional block anesthesia. A towel roll was placed under the medial border of the scapula of the left shoulder. The patient's head was placed on a foam headrest and protective eyewear was placed and the extremities were well padded. The arm was draped free in order to manipulate the shoulder as necessary. The shoulder exam demonstrated significant obesity about the shoulder and elbow. Patient had very limited range of motion with 60 degrees of abduction and 30 degrees of external rotation and internal rotation and forward elevation of 110 degrees. The shoulder was sterilely prepped and draped in the usual sterile fashion. An anterior deltopectoral approach was performed. A slightly longer than typical longitudinal incision was made in the interval due to the obesity.. The skin was incised sharply and deep layer of subcutaneous tissues dissected down to the fascia. The cephalic vein was identified and retracted laterally with the deltoid. Any crossing veins were tied off with silk ties and divided. The clavipectoral fascia was divided at the lateral margin of the conjoined tendon and divided up to the level of the coracoacromial ligament which was released as well. The upper 1 cm of the pectoralis was released for inferior exposure. The biceps tendon findings demonstrated marked chronic tenosynovitis with bicipital groove spurs and tendinopathy. The rotator cuff tendon findings demonstrated some thickening of the tendon in the area of the suspected calcific deposit but I could not visualize it superficially as it was deep within the tendon tissue. In the area on MRI where the calcific deposit was noted we did a needle barbotage with a spinal needle throughout the area of the involved tendon to break up the calcium deposit.. The circumflex vessels were then identified and tied off with silk ties and divided laterally. The fibers and subscapularis were split longitudinally at the level of the circumflex vessels down to the capsule and then reflected off the inferior capsule using a Kitner elevator. The axillary nerve was identified with a tug test and protected with a blunt Mayur retractor. The rotator interval was opened up and extended down to the glenoid. The biceps tendon was identified and tenodesed to the pectoralis tendo n with [id number] #2 FiberWire sutures in the proximal biceps was resected. The subscapularis tendon was taken down with a trans-tendinous incision leaving a cuff of tissue for repair on the lesser tuberosity. The incision was carried down to the tendon and the capsule and a #1 Vicryl suture was placed into the free end of the subscapularis tendon. The capsule was subperiosteally dissected off the inferior neck of the humerus exposing the humeral osteophytes which demonstrated large inferior osteophytes extending from anterior to posterior. The osteophytes were excised with an artist chisel and a rongeur. The capsular release along the inferior neck of the humerus was completed. The humerus was then retracted posterior to the glenoid with a Fukuda retractor. The remainder of the biceps tendon and labrum was resected. A large subcoracoid loose body was resected. The glenoid findings demonstrated eburnated bone no cartilage remaining with complete loss of articular cartilage and central type A wear. I did an anterior inferior and posterior inferior release with electrocautery on bone and a Munoz elevator with the axillary nerve continuing to be protected with the blunt Hohmann retractor inferiorly. When the releases were completed and the humeral head was exposed with some extension and external rotation and in anatomic head cut was made using the oscillating saw. The Tornier simplicity total shoulder arthroplasty was used including the Cortiloc pegged glenoid component. Attention was first taken to preparation of the humeral cut surface. The guide for the 46 mm head was placed for a size 2 nucleus. The central guidepin was placed. The surface reamer was used. The drill for the nucleus was used. The trial nucleus was inserted and the cut protector placed. The humerus was then retracted posterior to the glenoid using a Bankart retractor anteriorly and blunt Mayur and posterior Tornier glenoid retractor. A central drill hole was made into the glenoid. The glenoid was sized for a size 30 radius small component. The glenoid was reamed and the central drill widened and the guide for the 3 peripheral peg holes was placed in the peg holes were d rilled and a trial component was placed with a tight fit. There were several subchondral cysts that were curetted out on the surface. These were later filled with cement. The trial was removed and the glenoid was irrigated with pulsatile lavage antibiotic solution and the drill holes were dried and packed with epinephrine-soaked tampons for hemostasis. The Palacos G cement was vacuum mixed. The final component was cemented into position and held in position with pressure until the cement cured. A humeral head trial was placed. A trial reduction was performed and the shoulder was stable. The trial was removed and the humerus and canal were irrigated with antibiotic solution with bacitracin. 3 drill holes were made into the harder bone in the bicipital groove lateral to the lesser tuberosity and 3 #5 FiberWire transosseous sutures were placed for repair of the subscapularis. After further irrigation of the humerus bone graft was harvested from the cut humeral head piece. The subchondral bone was harvested for bone graft. In the area the central drill hole where the nucleus was placed there was bone cyst and some relative osteopenia, in order to enhance the press-fit of the implant bone graft was impacted into the cystic area and then the reamer for the nucleus was placed on reverse to impact the bone graft and then the #2 nucleus was impacted leaving it slightly proud and then the size 46 x 17 humeral head was placed on the nucleus and both were impacted down with a tight press-fit which was assessed with after implantation to be stable. The humerus was reduced to the glenoid and stability verified. The subscapularis was repaired with the #5 FiberWire sutures in a Rasta-Dieudonne suture technique and lateral row fixation with [id number] #2 FiberWire in the soft tissue. The rotator interval was closed and maximal external rotation. The pectoralis was then closed with [id number] #2 FiberWire suture. The sutures were passed through the biceps tendon as well to reinforce the biceps tenodesis. After irrigation a moist sponge was placed into the incision and attention was was taken to the decompression and distal clavicle excision. A transverse incision was made over the AC joint and anterior acromion. A deep layer of fat was divided and subcutaneous flaps were elevated. Incision was made starting at 1 cm medial to the distal clavicle extending across the acromion and then just off the lateral edge of the acromion. Subperiosteal dissection performed around 1 cm distal clavicle which demonstrated arthritic AC joint which was treated by distal clavicle excision with 1 cm distal clavicle be resected with an oscillating saw. Deltoid was released off the anterior acromion revealing the very large anterior acromial spur extending well into the CA ligament. CA ligament was released off the spur and then the open acromioplasty was performed using an oscillating saw to excise the spur and the hooked anterior portion of the acromion and this was grasped with a TM and rasp smooth and the anterior edge of the acromion was rounded off. The superior incision was irrigated and then the deltoid trapezius fascia was closed with interrupted jaokfz-[id number] #2 FiberWire sutures with transosseous sutures through the acromion. 2 Hemovac drains were placed in the deltopectoral area. The deltopectoral interval was closed with [id number] #1 Vicryl sutures. The subcutaneous tissues of both incisions were closed with interrupted 2-0 Vicryl and the skin was closed with sinai and a sterile dressing was applied. The patient tolerated the procedure well. There was an increased level difficulty throughout the procedure due to the obesity and length of surgery was increased by approximately 40 minutes due to the exposure issues throughout the procedure. Darin MOTLEY my physician workforce development assistant, assisted in soft tissue retraction instrument management suture management and assisted in the subcutaneous and skin closure and will participate in the postoperative care the patient. I attest to the content of the Intraoperative Record and any orders documented therein. Any exceptions are noted below.
--- NOTE | 2021-04-29 19:29 | Anesthesiology Progress Note ---
Date of Service April 29, 2021 Anesthesia Post Procedure Vital Signs Vital Signs: Temp Pulse Pulse Resp BP BP Pulse Ox 04/29/21 19:19 83 21 159/84 H 95 04/29/21 19:10 84 23 165/67 H 97 04/29/21 19:00 77 16 170/75 H 96 04/29/21 18:52 36.7 C 83 20 152/77 H 96 04/29/21 13:17 37.1 C 67 20 197/84 H 96 Transfer of Care Handoff Completed per policy Notes Mental Status: alert / awake / arousable Patient Amnestic to Procedure: Yes Nausea / Vomiting: adequately controlled Pain: adequately controlled Airway Patency, RR, SpO2: stable & adequate BP & HR: stable & adequate Hydration State: stable & adequate Anesthetic Complications: no major complications apparent and Pt Satisfied with anesthetic care Notes: The patient is awake and comfortable. Her vital signs are stable.
--- NOTE | 2021-04-29 19:43 | XRay Report ---
XR shoulder LT min 2V routine HISTORY: 65 years-old Female Post shoulder surgery left shoulder total joint arthroplasty COMPARISON: Chest radiographs 02/11/2021 TECHNIQUE: 2 views of the left shoulder FINDINGS: Left shoulder total joint arthroplasty. Overlying skin sinai are present along with soft tissue swe lling and deep tissue air with surgical drainage catheter. Resection of the distal left clavicle. IMPRESSION: Left shoulder arthroplasty with distal clavicular resection. ACT 112: Negative or not required by law. The above report was generated using voice recognition software. It may contain grammatical, syntax o r spelling errors. Electronically signed by: Filipe Oliveira M.D. 04/29/2021 7:42 PM
[2021-04-29] MEDS ORDERED: bisacodyL 10 MG SUPP PR PRN (19:59)
[2021-04-29] MEDS ORDERED: SODIUM CHLORIDE 0.9% 1000ML 1,000 ML IV SCH (19:59)
[2021-04-29] MEDS ORDERED: MAGNESIUM HYDROXIDE SUSP 30 ML UDC PO PRN (19:59)
[2021-04-29] MEDS ORDERED: HYDROmorphone INJ 0.5 MG/0.5 ML SYR IV PRN (19:59)
[2021-04-29] MEDS ORDERED: NALOXONE HCL 0.4 MG/1 ML VIAL/CARP IV PRN (19:59)
[2021-04-29] MEDS ORDERED: METOCLOPRAMIDE HCL INJ 5 MG/ML 2 ML VIAL IV PRN (19:59)
[2021-04-29] MEDS ORDERED: oxyCODONE HCL IR 5 MG TAB (IMMEDIATE RELEASE) PO PRN (19:59)
[2021-04-29] MEDS ORDERED: ALUMINUM/MAGNESIUM SUSP 30 ML UDC PO PRN (20:27)
[2021-04-29] MEDS ORDERED: PHARMACY GLYCEMIC MGMT CONSULT PRN (20:28)
[2021-04-29] MEDS ORDERED: DEXTROSE 50% 50 ML SYRINGE IV PRN (20:30)
[2021-04-29] MEDS ORDERED: GLUCAGON FOR INJ 1 MG VIAL IM PRN (20:30)
[2021-04-29] MEDS ORDERED: GLUCOSE 40% GEL 15 GM TUBE PO PRN (20:30)
[2021-04-29] MEDS ORDERED: GLUCOSE 10 TABS/TUBE PO PRN (20:30)
[2021-04-29] MEDS ORDERED: CARBOHYDRATES FOR HYPOGLYCEMIA PO PRN (20:30)
[2021-04-29] MEDS: INSULIN ASPART 100 UNITS/ML 3 ML PEN SC SCH (20:55)
[2021-04-29] MEDS ORDERED: NON-FORMULARY MEDICATION (Vit C,E-Zn-Coppr-Lutein-Zeaxan [Preservision Areds-2] 250-200-40 PO SCH (21:00)
[2021-04-29] MEDS ORDERED: MULTIVITAMIN TAB PO SCH (21:00)
[2021-04-29] MEDS ORDERED: SENNA 8.6 MG TAB PO SCH (21:00)
[2021-04-29] MEDS ORDERED: rOPINIRole HCL 1 MG TABLET PO SCH (21:00)
[2021-04-29] MEDS: DULoxetine HCL 60 MG CAP PO SCH (21:16)
[2021-04-29] MEDS: RANOLAZINE 500 MG ER TAB PO SCH (21:16)
[2021-04-29] MEDS: PANTOprazole 40 MG TAB PO SCH (21:16)
[2021-04-29] MEDS: DOCUSATE SODIUM 100 MG CAP PO SCH (21:16)
[2021-04-29] MEDS: ACETAMINOPHEN 500 MG TAB PO SCH (21:16)
[2021-04-29] MEDS ORDERED: MELATONIN 3 MG TAB PO PRN (21:52)
[2021-04-29] MEDS: CLINDAMYCIN 600 MG in DEXTROSE 5% 50 ML IV SCH (22:29)
[2021-04-30] MEDS: CLINDAMYCIN 600 MG in DEXTROSE 5% 50 ML IV SCH (05:50)
[2021-04-30] MEDS: ACETAMINOPHEN 500 MG TAB PO SCH ×2 (05:51→13:16)
[2021-04-30 06:21] LABS: Hematocrit (blood only) 32.6 % (37-47); Hemoglobin 10.7 g/dL (12.0-16.0); Immature Granulocytes # (auto) 0.01 K/uL (0.00-0.02); Immature Granulocytes % (auto) 0.1 %; Lymphocytes # (auto) 0.71 K/uL (1.2-3.4); Lymphocytes % (auto) 8.9 %; Mean Corpuscular Hemoglobin 31.6 pg (25-34); Mean Corpuscular Hgb Conc 32.8 g/dL (32-36); Mean Corpuscular Volume 96.2 fL (80-100); Mean Platelet Volume 9.7 fL (7.4-10.4); Monocytes % (auto) 8.7 %; Neutrophils % (auto) 82.3 %; Platelet Count 165 K/uL (130-400); RDW Coefficient of Variation 14.2 % (11.5-14.5); Red Blood Count 3.39 M/uL (4.2-5.4); White Blood Count 8.02 K/uL (4.8-10.8)
[2021-04-30 06:53] LABS: BUN Creatinine Ratio 21.9 (10-20); Calcium 7.9 mg/dl (8.5-10.1); Creatinine Clr Calc Pharmacy 109.7 ml/min; Est GFR (African American) 113.5 ml/min; Potassium 3.7 mmol/L (3.5-5.1)
[2021-04-30] MEDS ORDERED: metFORMIN HCL 500 MG TAB PO SCH (08:00)
--- NOTE | 2021-04-30 08:33 | Anesthesiology Progress Note ---
Date of Service April 30, 2021 Anesthesia Post Procedure Vital Signs Vital Signs: Temp Pulse Pulse Pulse Resp BP BP 04/30/21 07:54 36.9 C 88 16 143/80 H 04/30/21 03:38 37 C 91 H 16 129/85 04/29/21 23:02 37.5 C 92 H 16 167/95 H 04/29/21 21:47 37.4 C 90 18 158/90 H 04/29/21 20:52 37.3 C 85 18 133/78 04/29/21 20:10 36.7 C 86 16 169/82 H 04/29/21 19:40 36.9 C 82 16 154/81 H 04/29/21 19:29 36.8 C 83 17 164/85 H 04/29/21 19:20 83 21 159/84 H 04/29/21 19:10 84 23 165/67 H 04/29/21 19:00 77 16 170/75 H 04/29/21 18:52 36.7 C 83 20 152/77 H 04/29/21 13:17 37.1 C 67 20 197/84 H Pulse Ox 04/30/21 07:54 93 04/30/21 03:38 91 04/29/21 23:02 90 04/29/21 21:47 91 04/29/21 20:52 95 04/29/21 20:10 92 04/29/21 19:40 92 04/29/21 19:29 95 04/29/21 19:20 95 04/29/21 19:10 97 04/29/21 19:00 96 04/29/21 18:52 96 04/29/21 13:17 96 Notes Mental Status: alert / awake / arousable and participated in evaluation Patient Amnestic to Procedure: Yes Nausea / Vomiting: adequately controlled Pain: adequately controlled Airway Patency, RR, SpO2: stable & adequate BP & HR: stable & adequate Hydration State: stable & adequate Anesthetic Complications: no major complications apparent
[2021-04-30] MEDS: INSULIN ASPART 100 UNITS/ML 3 ML PEN SC SCH ×2 (08:51→13:17)
[2021-04-30] MEDS: RANOLAZINE 500 MG ER TAB PO SCH (08:51)
[2021-04-30] MEDS: PANTOprazole 40 MG TAB PO SCH (08:52)
[2021-04-30] MEDS: DOCUSATE SODIUM 100 MG CAP PO SCH (08:52)
[2021-04-30] MEDS: DULoxetine HCL 60 MG CAP PO SCH (08:52)
[2021-04-30] MEDS ORDERED: ROSUVASTATIN CALCIUM 20 MG TAB PO SCH (09:00)
[2021-04-30] MEDS ORDERED: POTASSIUM CHLORIDE CRTAB 20 MEQ TABCR PO SCH (09:00)
[2021-04-30] MEDS ORDERED: METOPROLOL TARTRATE 25 MG TAB PO SCH (09:00)
[2021-04-30] MEDS ORDERED: LOSARTAN POTASSIUM 50 MG TAB PO SCH (09:00)
[2021-04-30] MEDS ORDERED: ASPIRIN 81 MG ECTAB PO SCH (09:00)
[2021-04-30] MEDS ORDERED: LINACLOTIDE 145 MCG CAPSULE PO SCH (09:00)
[2021-04-30] MEDS ORDERED: MULTIVITAMIN TAB PO SCH (09:00)
--- NOTE | 2021-04-30 09:29 | Orthopedic Progress Note ---
Date of Service April 30, 2021 Assessment & Plan (1) Primary osteoarthritis, left shoulder: Postop day 1 status post left total shoulder arthroplasty with subacromial decompression and distal clavicle excision. PT/OT protocols. Nonweightbearing on the left upper extremity. DVT prophylaxis-aspirin p.o. daily, SCDs. Pain management as written. DC planning-planning for discharge to home with outpatient PT. Admission and Anticipated Discharge Date Admission Date: April 29, 2021 Subjective Postop day 1 Patient sitting in her chair at the bedside. No complaints this morning. Her block is still functioning and her pain control is adequate. Denies shortness of breath, chest pain, lightheadedness. Physical Exam Physical Exam: ssDressings are clean, dry, and intact. Sling is in place. Hemovac is functioning. She has good movement with her fingers however some weakness and numbness in her left thumb continues. She has some weak range of motion of her left wrist secondary to numbness. Capillary fill is less than 2 seconds. Results & Data ([facility]) Vital Signs (Past 12 Hours) Vital Signs Temp Pulse Resp BP Pulse Ox 04/30/21 07:54 36.9 C 88 16 143/80 H 93 04/30/21 03:38 37 C 91 H 16 129/85 91 04/29/21 23:02 37.5 C 92 H 16 167/95 H 90 04/29/21 21:47 37.4 C 90 18 158/90 H 91 Laboratory Results Laboratory Results WBC 8.02 K/uL (4.8-10.8) 04/30/21 05:46 RBC 3.39 M/uL (4.2-5.4) L 04/30/21 05:46 Hgb 10.7 g/dL (12.0-16.0) L 04/30/21 05:46 Hct 32.6 % (37-47) L 04/30/21 05:46 MCV 96.2 fL (80-100) 04/30/21 05:46 MCH 31.6 pg (25-34) 04/30/21 05:46 MCHC 32.8 g/dL (32-36) 04/30/21 05:46 RDW Std Deviation 50.0 fL (36.4-46.3) H 04/30/21 05:46 RDW Coeff of Michelle 14.2 % (11.5-14.5) 04/30/21 05:46 Plt Count 165 K/uL (130-400) 04/30/21 05:46 MPV 9.7 fL (7.4-10.4) 04/30/21 05:46 Immature Gran % (Auto) 0.1 % 04/30/21 05:46 Neut % (Auto) 82.3 % 04/30/21 05:46 Lymph % (Auto) 8.9 % 04/30/21 05:46 Hall % (Auto) 8.7 % 04/30/21 05:46 Eos % (Auto) 0.0 % 04/30/21 05:46 Baso % (Auto) 0.0 % 04/30/21 05:46 Neut # (Auto) 6.60 K/uL (1.4-6.5) H 04/30/21 05:46 Lymph # (Auto) 0.71 K/uL (1.2-3.4) L 04/30/21 05:46 Hall # (Auto) 0.70 K/uL (0.11-0.59) H 04/30/21 05:46 Eos # (Auto) 0.00 K/uL (0-0.5) 04/30/21 05:46 Baso # (Auto) 0.00 K/uL (0-0.2) 04/30/21 05:46 Immature Gran # (Auto) 0.01 K/uL (0.00-0.02) 04/30/21 05:46 Sodium 140 mmol/L (136-145) 04/30/21 05:46 Potassium 3.7 mmol/L (3.5-5.1) 04/30/21 05:46 Chloride 109 mmol/L (98-107) H 04/30/21 05:46 Carbon Dioxide 28 mmol/L (21-32) 04/30/21 05:46 Anion Gap 4.0 (3-11) 04/30/21 05:46 BUN 13 mg/dl (7-18) 04/30/21 05:46 Creatinine 0.57 mg/dl (0.6-1.2) L 04/30/21 05:46 Est Cr Clr Drug Dosing 109.7 ml/min 04/30/21 05:46 Est GFR ( Amer) 113.5 ml/min 04/30/21 05:46 Est GFR (Non-Af Amer) 98.0 ml/min 04/30/21 05:46 BUN/Creatinine Ratio 21.9 (10-20) H 04/30/21 05:46 Glucose 128 mg/dl (70-99) H 04/30/21 05:46 POC Glucose 120 mg/dl (70-99) H 04/30/21 08:23 Calcium 7.9 mg/dl (8.5-10.1) L 04/30/21 05:46 COVID-19 Eval Order Covid19 [facility]Now [facility] 04/29/21 Unknown SARS-CoV-2, RNA, NAAT NEGATIVE (NEGATIVE) 04/29/21 Unknown Impressions Shoulder X-Ray 04/29/21 18:09 XR shoulder LT min 2V routine HISTORY: 65 years-old Female Post shoulder surgery left shoulder total joint arthroplasty COMPARISON: Chest radiographs 02/11/2021 TECHNIQUE: 2 views of the left shoulder FINDINGS: Left shoulder total joint arthroplasty. Overlying skin sinai are present along with soft tissue swelling and deep tissue air with surgical drainage catheter. Resection of the distal left clavicle. IMPRESSION: Left shoulder arthroplasty with distal clavicular resection. ACT 112: Negative or not required by law. The above report was generated using voice recognition software. It may contain grammatical, syntax or spelling errors. Electronically signed by: Filipe Oliveira M.D. 04/29/2021 7:42 PM
--- NOTE | 2021-04-30 09:43 | Hospitalist Consultation ---
Date of Consultation April 30, 2021 Assessment & Plan (1) Primary osteoarthritis, left shoulder: Mrs Lang is a 66 year old female with a history of Hypertension, Hyperlipidemia, Type 2 Diabetes Mellitus, Lumbar Spinal Stenosis, Cervical Spinal Stenosis, Anxiety, Depression, Obesity, and GERD who is POD #1 from Left Reversed TSA. Her shoulder pain / surgical pain is very well controlled at this point. She has not had any postoperative nausea or vomiting. She is tolerating her current regimen without adverse side effects. Patient is hemodynamically stable following her surgery and her surgical pain is well controlled. Patient is mildly anemic with a Hgb of 10.7 g/dl. 1. Pain management as per Ortho. 2. PT/OT evaluations. 3. DVT prophylaxis as per Ortho. 4. Monitor daily labs. (2) Hypertension: Patient's blood pressures have been elevated throughout this hospitalization. -- Increase Losartan to 100 mg daily. -- Consider switching from Lopressor 25 mg daily to Metoprolol Succinate ER 25 to 50 mg daily. -- Low sodium diet. (3) Diabetes mellitus, type 2: -- Continue Metformin. -- Glycemic Pharmacy Consult. -- Sliding scale insulin. -- Diabetic diet. (4) Hyperlipidemia: -- Continue Rosuvastatin 20 mg daily. (5) Headache: She complains of a throbbing anterior headache which began this morning. She suspects it is because she did not sleep well last night. She does not typically get headaches. She denies any nausea, vomiting, visual disturbance, or any weakness, numbness, tingling, or paralysis of any extremities (with the exception of her left upper extremity nerve block). -- She just received a dose of Oxycodone for her headache. -- Consider adding Toradol if headache persists. (6) Dyspnea: Patient has a mild sensation of dyspnea this morning and a history of chronic intermittent dyspnea with associated wheezing. Patient states that her father and all of her siblings have relatively severe asthma. -- Add Albuterol MDI every 4 hours as needed. Supervising Physician Co-Signing Physician Notes I supervised Rahul Carson on this consultation. I did not see the patient as they were discharged by the primary team prior to 24 hours after the consult was placed. No acute medical issues that would prevent discharge and cannot be followed up by her PCP. History of Present Illness Reason for Consultation: -- Post-op Medical Management. -- POD#1 Left Reversed TSA. -- Hypertension. -- Type 2 Diabetes Mellitus. Requesting Physician: Greg Roy MD Attending Physician: Ameya Bruce MD History of Present Illness Mrs Lang is a 66 year old female with a history of Hypertension, Hyperlipidemia, Type 2 Diabetes Mellitus, Lumbar Spinal Stenosis, Cervical Spinal Stenosis, Anxiety, Depression, Obesity, and GERD who underwent a Left Reversed TSA yesterday with Dr. Roy. Patient is currently being seen in room 318. She complains of a throbbing anterior headache which began this morning. She suspects it is because she did not sleep well last night. She does not typically get headaches. She denies any nausea, vomiting, visual disturbance, or any weakness, numbness, tingling, or paralysis of any extremities (with the exception of her left upper extremity nerve block). Patient states that her shoulder pain / surgical pain is very well controlled at this point. She has not had any postoperative nausea or vomiting. She is tolerating her current regimen without adverse side effects. Patient also admits to a mild sensation of dyspnea this morning although she does not have any obvious wheezing on physical examination. Patient states that her father and all of her siblings have relatively severe asthma. Patient offers no other complaints. She denies any chest pain, heaviness, tightness, pressure, or discomfort. She denies any palpitations, syncope, or near syncope. Patient states that she has been physically active leading up to surgery. She still does her own housework, and push mows her lawn. She is able to do this with some degree of dyspnea and wheezing. Because of this symptom, she underwent a abnormal stress test earlier this year. Patient subsequently underwent Cardiac Catheterization on 03/10/21 at [facility] -- this showed Angiographically Normal Coronary Arteries. Allergies Allergy/AdvReac Type Severity Reaction Status Date / Time ampicillin Allergy Intermediate SWELLING Verified 04/29/21 13:05 OF LIPS pregabalin [From Lyrica] Allergy Intermediate Swelling Verified 04/29/21 13:05 of extremities vancomycin Allergy Intermediate ITCHINESS Verified 04/29/21 13:05 AND SKIN REDNESS Home Medications Medication Instructions Recorded Confirmed Type Linzess 290 mcg PO QAM 05/04/19 04/29/21 History PreserVision AREDS-2 1 tab PO HS 05/04/19 04/29/21 History gabapentin 600 mg PO TID 05/04/19 04/29/21 History pantoprazole 20 mg PO BID 05/04/19 04/29/21 History Gaviscon Extra Strength 1 tab PO DAILY PRN 05/25/19 04/29/21 History losartan 50 mg PO QAM 05/25/19 04/29/21 History metoprolol tartrate 25 mg PO QAM 05/25/19 04/29/21 History multivitamin 1 tab PO QPM 05/25/19 04/29/21 History potassium chloride 20 meq PO QAM 05/25/19 04/29/21 History ranolazine [Ranexa] 1,000 mg PO BID 05/25/19 04/29/21 History rosuvastatin [Crestor] 20 mg PO QAM 05/25/19 04/29/21 History metformin 750 mg tablet,extended 750 mg PO BID #180 tab 10/25/19 04/29/21 Rx release 24 hr duloxetine 60 mg capsule,delayed 60 mg PO BID cap 06/03/20 04/29/21 History release ropinirole 3 mg tablet 6 mg PO HS tab 06/03/20 04/29/21 History Prevagen 1 dose PO QPM 02/02/21 04/29/21 History aspirin [Adult Low Dose Aspirin] 81 mg PO QAM 02/02/21 04/29/21 History acetaminophen 1,000 mg PO Q8 14 Days #84 tab 04/30/21 Rx oxycodone 5 mg PO Q4H PRN #30 tab MDD 6 04/30/21 Rx polyethylene glycol 3350 [Miralax] 17 g PO DAILY PRN #5 ea 04/30/21 Rx Patient History Medical History Anxiety CAD (coronary artery disease) Angiographically normal coronary arteries per 03/10/21 cardiac cath Depression Diabetes mellitus, type 2 NIDDM GERD (gastroesophageal reflux disease) H/O chest pain Per cardio, hx of chest pain syndrome possible secondary to syndrome X- relieved by Ranexa Angiographically normal coronary arteries per 03/10/21 cardiac cath Hiatal hernia Hyperlipidemia Hypertension Incontinent of urine Macular degeneration BL Multiple thyroid nodules Nutcracker esophagus Slow to wake up after anesthesia Pt denies h/o ICU transfer or reintubation, but reports she was admitted after her lap jacques when she was supposed to go home same-day. (2006 at [facility] per cardio note) Surgical History History of back surgery X3 History of cardiac cath March 2021 [facility]- no stents/angioplasty 2012 [facility]. No intervention performed. "Essentially normal coronary a rteries" per cardio. History of fusion of cervical spine Limited ROM side to side History of right knee joint replacement X3- 2 revisions Hx of bilateral breast reduction surgery Hx of cholecystectomy Hx of total hysterectomy S/P thyroid biopsy benign Family History Mother , at 52. Heart disease Hypercholesteremia Hypertension Blood clot in vein Father , at 76 Lymphoma Lung cancer Asthma Sister Heart disease Multiple sclerosis Slow to wake up after anesthesia Sister Diabetes Heart disease Thyroid disease Brother Heart disease Sister Heart disease Hot thyroid nodule Brother Diabetes Heart disease Other Cancer Social History Smoking Status: Never smoker Second Hand Exposure: No; Do You Dip or Chew Tobacco: No; Hx Alcohol Use: Yes Alcohol type: beer and wine Hx Substance Use: No Preferred Language: Japanese Communication Ability: Effective Retort Fireman Required: No Beliefs That Will Affect Care: None marital status: Current Living Situation: Spouse Feels Safe at Home: Yes Safety Concerns: Feels Safe At This Time Assistive Devices: None Physical Exam Physical Exam: Vital signs are stable. GENERAL: Patient in no acute distress. HEENT: Head is atraumatic, normocephalic. EOM's intact. Facies symmetric. No perioral cyanosis. NECK: No JVD. JVP is at the level of the clavicle sitting upright. Carotid upstrokes are + 2 bilaterally. No bruits are noted. CHEST/LUNGS: Clear to auscultation throughout all lung verma. No wheezes, rales, or crackles. CVS: S1 and S2 are regular without obvious murmurs, gallops, or rubs. PMI is nonpalpable. No lifts, heaves, or thrills. No abdominal aortic or renal bruits. ABDOMINAL EXAM: Bowel sounds are present. No masses, organomegaly, or tenderness. EXTREMITIES: No clubbing or cyanosis. No edema, compression stockings in place. Intact posterior tibial and radial pulses bilaterally. Calves are soft, nontender. No palpable cords. MUSCULOSKELETAL EXAM: Left shoulder is dressed. Left arm in a sling. NEUROLOGIC EXAM: Patient is awake, alert, and oriented. Pleasant and cooperative. Answers questions appropriately. Speech is clear. Gait pattern was not assessed. Results & Data Results & Data ([facility]) Vital Signs (Past 12 Hours) Vital Signs Temp Pulse Resp BP Pulse Ox 04/30/21 07:54 36.9 C 88 16 143/80 H 93 04/30/21 03:38 37 C 91 H 16 129/85 91 04/29/21 23:02 37.5 C 92 H 16 167/95 H 90 04/29/21 21:47 37.4 C 90 18 158/90 H 91 Laboratory Results Laboratory Results - last 24 hr 04/29/21 04/29/21 04/29/21 13:02 18:55 Unknown WBC RBC Hgb Hct MCV MCH MCHC RDW Std Deviation RDW Coeff of Michelle Plt Count MPV Immature Gran % (Auto) Neut % (Auto) Lymph % (Auto) Blaine % (Auto) Eos % (Auto) Baso % (Auto) Neut # (Auto) Lymph # (Auto) Blaine # (Auto) Eos # (Auto) Baso # (Auto) Immature Gran # (Auto) Sodium Potassium Chloride Carbon Dioxide Anion Gap BUN Creatinine Est Cr Clr Drug Dosing Est GFR ( Amer) Est GFR (Non-Af Amer) BUN/Creatinine Ratio Glucose POC Glucose 114 H 113 H Calcium COVID-19 Eval Order Covid19 IDNow [facility] SARS-CoV-2, RNA, NAAT 04/29/21 04/30/21 04/30/21 Unknown 05:46 05:46 WBC 8.02 RBC 3.39 L Hgb 10.7 L Hct 32.6 L MCV 96.2 MCH 31.6 MCHC 32.8 RDW Std Deviation 50.0 H RDW Coeff of Michelle 14.2 Plt Count 165 MPV 9.7 Immature Gran % (Auto) 0.1 Neut % (Auto) 82.3 Lymph % (Auto) 8.9 Blaine % (Auto) 8.7 Eos % (Auto) 0.0 Baso % (Auto) 0.0 Neut # (Auto) 6.60 H Lymph # (Auto) 0.71 L Blaine # (Auto) 0.70 H Eos # (Auto) 0.00 Baso # (Auto) 0.00 Immature Gran # (Auto) 0.01 Sodium 140 Potassium 3.7 Chloride 109 H Carbon Dioxide 28 Anion Gap 4.0 BUN 13 Creatinine 0.57 L Est Cr Clr Drug Dosing 109.7 Est GFR ( Amer) 113.5 Est GFR (Non-Af Amer) 98.0 BUN/Creatinine Ratio 21.9 H Glucose 128 H POC Glucose Calcium 7.9 L COVID-19 Eval Order SARS-CoV-2, RNA, NAAT NEGATIVE 04/30/21 08:23 WBC RBC Hgb Hct MCV MCH MCHC RDW Std Deviation RDW Coeff of Michelle Plt Count MPV Immature Gran % (Auto) Neut % (Auto) Lymph % (Auto) Blaine % (Auto) Eos % (Auto) Baso % (Auto) Neut # (Auto) Lymph # (Auto) Blaine # (Auto) Eos # (Auto) Baso # (Auto) Immature Gran # (Auto) Sodium Potassium Chloride Carbon Dioxide Anion Gap BUN Creatinine Est Cr Clr Drug Dosing Est GFR ( Amer) Est GFR (Non-Af Amer) BUN/Creatinine Ratio Glucose POC Glucose 120 H Calcium COVID-19 Eval Order SARS-CoV-2, RNA, NAAT Diagnostic Findings LEFT SHOULDER X-RAY 04/29/21: Left shoulder total joint arthroplasty. Overlying skin sinai are present along with soft tissue swelling and deep tissue air with surgical drainage catheter. Resection of the distal left clavicle. IMPRESSION: -- Left shoulder arthroplasty with distal clavicular resection. Medications Administered Medications Linzess 290 mcg PO QAM 05/04/19 [History Confirmed 04/29/21] PreserVision AREDS-2 1 tab PO HS 05/04/19 [History Confirmed 04/29/21] gabapentin 600 mg PO TID 05/04/19 [History Confirmed 04/29/21] pantoprazole 20 mg PO BID 05/04/19 [History Confirmed 04/29/21] Gaviscon Extra Strength 1 tab PO DAILY PRN 05/25/19 [History Confirmed 04/29/21] losartan 50 mg PO QAM 05/25/19 [History Confirmed 04/29/21] metoprolol tartrate 25 mg PO QAM 05/25/19 [History Confirmed 04/29/21] multivitamin 1 tab PO QPM 05/25/19 [History Confirmed 04/29/21] potassium chloride 20 meq PO QAM 05/25/19 [History Confirmed 04/29/21] ranolazine [Ranexa] 1,000 mg PO BID 05/25/19 [History Confirmed 04/29/21] rosuvastatin [Crestor] 20 mg PO QAM 05/25/19 [History Confirmed 04/29/21] tramadol 50 mg PO Q4H PRN #30 tab 05/28/19 [Rx Confirmed 04/29/21] metformin 750 mg tablet,extended release 24 hr 750 mg PO BID #180 tab 10/25/19 [Rx Confirmed 04/29/21] duloxetine 60 mg capsule,delayed release 60 mg PO BID cap 06/03/20 [History Confirmed 04/29/21] ibuprofen 800 mg tablet 800 mg PO Q8H PRN 06/03/20 [History Confirmed 04/29/21] ropinirole 3 mg tablet 6 mg PO HS tab 06/03/20 [History Confirmed 04/29/21] Prevagen 1 dose PO QPM 02/02/21 [History Confirmed 04/29/21] aspirin [Adult Low Dose Aspirin] 81 mg PO QAM 02/02/21 [History Confirmed 04/29/21] acetaminophen 1,000 mg PO Q8 14 Days #84 tab 04/30/21 [Rx] oxycodone 5 mg PO Q4H PRN #30 tab MDD 6 04/30/21 [Rx] polyethylene glycol 3350 [Miralax] 17 g PO DAILY PRN #5 ea 04/30/21 [Rx] Home Medications Acetaminophen (Acetaminophen 500 Mg Tab) 1,000 mg PO Q8 [facility] Stop: 05/29/21 21:59 Last Admin: 04/30/21 05:51 Dose: 1,000 mg Documented by: Al Hydrox/Mg Hydrox/Simethicone (Aluminum/Magnesium Susp 30 Ml Udc) 30 ml PO DAILY PRN PRN Reason: Acid Reflux Stop: 05/29/21 20:26 Aspirin (Aspirin 81 Mg Ectab) 81 mg PO QAM [facility]FIN[facility] Stop: 05/30/21 08:59 Last Admin: 04/30/21 08:52 Dose: 81 mg Documented by: Bisacodyl (Bisacodyl 10 Mg Supp) 10 mg MA DAILY PRN PRN Reason: Constipation Stop: 05/29/21 19:58 Dextrose (Dextrose 50% 50 Ml Syringe) 25 - 50 ml IV UD PRN; Protocol PRN Reason: Hypoglycemia Protocol Stop: 05/29/21 20:29 Docusate Sodium (Docusate Sodium 100 Mg Cap) 100 mg PO BID [facility] Stop: 05/29/21 20:59 Last Admin: 04/30/21 08:52 Dose: 100 mg Documented by: Duloxetine HCl (Duloxetine Hcl 60 Mg Cap) 60 mg PO BID [facility] Stop: 05/29/21 20:59 Last Admin: 04/30/21 08:52 Dose: 60 mg Documented by: Gabapentin (Gabapentin 300 Mg Cap) 300 mg PO TID [facility] Stop: 05/30/21 13:59 Glucagon (Glucagon For Inj 1 Mg Vial) 1 mg IM UD PRN; Protocol PRN Reason: Hypoglycemia Protocol Stop: 05/29/21 20:29 Glucose (Glucose 40% Gel 15 Gm Tube) 15 - 30 gm PO UD PRN; Protocol PRN Reason: Hypoglycemia Protocol Stop: 05/29/21 20:29 Glucose (Glucose 10 Tabs/Tube) 4 - 8 tabs PO UD PRN; Protocol PRN Reason: Hypoglycemia Protocol Stop: 05/29/21 20:29 Hydromorphone HCl (Hydromorphone Inj 0.5 Mg/0.5 Ml Syr) 0.5 mg IV Q4H PRN PRN Reason: Pain or Pre PT Stop: 05/13/21 19:58 Insulin Aspart (Insulin Aspart 100 Units/Ml 3 Ml Pen) 0 units SC ACHS [facility] Stop: 05/29/21 20:59 Last Admin: 04/30/21 08:51 Dose: Not Given Documented by: Linaclotide (Linaclotide 145 Mcg Capsule) 290 mcg PO QAM [facility] Stop: 05/30/21 08:59 Last Admin: 04/30/21 08:52 Dose: 290 mcg Documented by: Losartan Potassium (Losartan Potassium 50 Mg Tab) 50 mg PO QAM [facility] Stop: 05/30/21 08:59 Last Admin: 04/30/21 08:52 Dose: 50 mg Documented by: Magnesium Hydroxide (Magnesium Hydroxide Susp 30 Ml Udc) 30 ml PO Q6H PRN PRN Reason: Constipation Stop: 05/29/21 19:58 Melatonin (Melatonin 3 Mg Tab) 9 mg PO HS PRN PRN Reason: Sleep Stop: 05/29/21 21:51 Last Admin: 04/29/21 22:29 Dose: 9 mg Documented by: Metformin HCl (Metformin Hcl 500 Mg Tab) 750 mg PO BIDM [facility] Stop: 05/30/21 07:59 Last Admin: 04/30/21 08:51 Dose: 750 mg Documented by: Metoclopramide HCl (Metoclopramide Hcl Inj 5 Mg/Ml 2 Ml Vial) 10 mg IV Q6H PRN PRN Reason: Nausea And Vomiting Stop: 05/29/21 19:58 Metoprolol Tartrate (Metoprolol Tartrate 25 Mg Tab) 25 mg PO QAM [facility] Stop: 05/30/21 08:59 Last Admin: 04/30/21 08:52 Dose: 25 mg Documented by: Miscellaneous (Order Awaiting Action) 1 ea N/A QS [facility] Stop: 05/30/21 00:00 Last Admin: 04/30/21 08:52 Dose: Not Given Documented by: Miscellaneous (Carbohydrates For Hypoglycemia ) 15 - 30 gm PO UD PRN PRN Reason: Hypoglycemia Treatment Stop: 05/29/21 20:29 Miscellaneous Information (Pharmacy Glycemic Mgmt Consult) 1 ea N/A UD PRN PRN Reason: Consult Stop: 05/29/21 20:27 Multivitamins (Multivitamin Tab) 1 tab PO QPM [facility] Stop: 05/29/21 20:59 Last Admin: 04/29/21 21:16 Dose: 1 tab Documented by: Naloxone HCl (Naloxone Hcl 0.4 Mg/1 Ml Vial/Carp) 0.1 mg IV Q5M PRN PRN Reason: Oversedation/Resp Depression Stop: 05/29/21 19:58 Ondansetron HCl (Ondansetron Inj 2 Mg/Ml 2 Ml Vial) 4 mg IV Q6H PRN PRN Reason: Nausea And Vomiting Stop: 05/29/21 19:58 Oxycodone HCl (Oxycodone Hcl Ir 5 Mg Tab (Immediate Release)) 5 - 10 mg PO Q4H PRN PRN Reason: Pain or Pre PT Stop: 05/13/21 19:58 Last Admin: 04/30/21 08:59 Dose: 5 mg Documented by: Pantoprazole Sodium (Pantoprazole 40 Mg Tab) 40 mg PO BID [facility] Stop: 05/29/21 20:59 Last Admin: 04/30/21 08:52 Dose: 40 mg Documented by: Potassium Chloride (Potassium Chloride Crtab 20 Meq Tabcr) 20 meq PO QAM [facility] Stop: 05/30/21 08:59 Last Admin: 04/30/21 08:52 Dose: 20 meq Documented by: Ranolazine (Ranolazine 500 Mg Er Tab) 1,000 mg PO BID [facility] Stop: 05/29/21 20:59 Last Admin: 04/30/21 08:51 Dose: 1,000 mg Documented by: Ropinirole HCl (Ropinirole Hcl 1 Mg Tablet) 6 mg PO [facility] Stop: 05/29/21 20:59 Last Admin: 04/29/21 21:16 Dose: 6 mg Documented by: Rosuvastatin Calcium (Rosuvastatin Calcium 20 Mg Tab) [facility] Stop: 05/30/21 08:59 Last Admin: 04/30/21 08:51 Dose: 20 mg Documented by: Sennosides (Senna 8.6 Mg Tab) 17.2 mg PO [facility] Stop: 05/29/21 20:59 Last Admin: 04/29/21 21:16 Dose: 17.2 mg Documented by: PG Care Time/CCT Total # of Minutes Spent Total Time Spent with Patient: Total time spent is greater than 50% in coordination of care (as documented) at patient's floor/unit and/or counseling patient:40 Coding Level of Care Code 57420 Inpt Consult Level 4 Diagnoses Primary osteoarthritis, left shoulder M19.012 Hypertension I10 Diabetes mellitus, type 2 E11.9 Hyperlipidemia E78.5 Headache R51.9 Dyspnea R06.00 Time Spent (min) 50
[2021-04-30] MEDS ORDERED: ALBUTEROL HFA 8 GM INHALER INH PRN (10:09)
[2021-04-30] MEDS ORDERED: LOSARTAN POTASSIUM 50 MG TAB PO STA (10:20)
--- NOTE | 2021-04-30 11:00 | Pharmacy Report ---
Pharmacy Glycemic Short Note 2 - Date of Service April 30, 2021 - Glycemic Short BSG Results (Last 24 hours): 04/29/21 04/29/21 04/30/21 13:02 18:55 05:46 Glucose 128 H POC Glucose 114 H 113 H 04/30/21 08:23 Glucose POC Glucose 120 H OUTPATIENT ANTIDIABETIC REGIMEN: * Metformin 750mg PO BIDM * A1c = 6% on 02/11/21 ASSESSMENT: * 66yo T2DM female with excellent outpatient control per recent A1c * Pt is maintained on oral antidiabetic agents as an outpatient * Oral agents are not recommended for inpatient use d/t drug interactions, changing PO intake, and difficulty titrating for acute hyper/hypoglycemia. ADA recommends re-initiating outpatient oral agents 1-2 days prior to discharge if/when appropriate if they were held on admission. * Will hold oral agents for POD#0 and utilize SQ basal bolus insulin regimen which is the recommended regimen for inpatient glycemic control. * Will initiate weight based insulin dosing for insulin derrek patient POD#0 * POD#1: Scr is WNL and pt tolerating PO. No insulin required yesterday - will dc CR and add back outaptient metformin. PLAN FOR INPATIENT GLYCEMIC CONTROL: * Hold outpatient oral diabetes medications POD#0 * Resume Metformin POD#1 * Basal insulin * N/A; not needed based on BSGs and insulin usage * Bolus insulin * NovoLog per scale ACHS or Q6hrs while NPO * Goal Range: Low 110 mg/dL - High 140 mg/dL * Correction Factor: 25 mg/dL/unit * Nutritional / Prandial insulin per carb ratio of 1 unit per -- grams CHO consumed PLAN FOR DISCHARGE: * A1c is in goal range. No changes needed at dc
[2021-04-30] MEDS ORDERED: GABAPENTIN 300 MG CAP PO SCH (14:00)
[2021-05-01] MEDS ORDERED: LOSARTAN POTASSIUM 50 MG TAB PO SCH (09:00)
--- NOTE | 2021-05-04 13:34 | Discharge Summary ---
Date of Service May 04, 2021 Admission HPI Per Admitting Provider 65 year old female with PMHx significant for HTN, high cholesterol, DM2, GERD, anxiety, and CAD post heart cath, and diverticulosis who presents with longstanding left shoulder pain. She has failed conservative measures including injections and would like to proceed with replacement. Pain is interfering with her daily and leisure activities. Patient denies headaches, sweats, fevers, chills, double vision, blurred vision, cough, sore throat, dysphagia, chest pain, sob, wheezing, n/v/d/c, numbness, tingling, fatigue, urinary symptoms, mood disorders. ROS positive for left shoulder pain and stiffness. Admission Exam Per Admitting Provider Physical Exam Constitutional: well developed and well nourished; no acute distress Eyes: PERRL, conjunctivae normal, anicteric sclerae ENMT: external ear and nose normal, oropharynx normal Neck: trachea midline, no thyromegaly Respiratory: normal respiratory effort, lungs clear to auscultation Cardiovascular: RRR, no murmur, no edema Musculoskeletal: Left shoulder: Active painful ROM. FF to 100 degrees, abduction to 70 degrees, 15 degrees of ER. Postive impingement signs, positive c ross body and O'briens. Diffuse tenderness about her AC joint, anterior-inferior acromion, anterior glenoid. Strength equal bilaterally Skin: no rashes, warm and dry Neurologic: patellar DTR's 2+ bilat, sensation intact Psychiatric: A+Ox3, euthymic affect Principal Diagnosis Osteoarthritis left shoulder Discharge Data Allergies Allergy/AdvReac Type Severity Reaction Status Date / Time ampicillin Allergy Intermediate SWELLING Verified 04/29/21 13:05 OF LIPS pregabalin [From Lyrica] Allergy Intermediate Swelling Verified 04/29/21 13:05 of extremities vancomycin Allergy Intermediate ITCHINESS Verified 04/29/21 13:05 AND SKIN REDNESS Consultations 04/27/21 15:00 Consult Hospitalist Routine Procedures Performed Operation Date: 04/29/21 14:30 Actual Procedures p Left Total Shoulder Arthroplasty, Distal Clavicle Excision, Biceps Tenodesis, Subacromial Decompression, Needle Barbotage Calcific Deposit(Left) - Greg Roy MD Ordered Studies 04/29/21 05:00 US - OR guided needle placemen Routine Hospital Course (1) Primary osteoarthritis, left shoulder: Addendum (Blank) Addendum April 30, 2021 11:32 Pt feeling well. She did have a ZARATE earlier which is getting better. She states she went through her PT protocol today which went well. I discussed the case with Rahul Carson PA-C. Medically stable for discharge. Plan for dc to home today. Addendum Signed By:<Electronically signed by Darin Srivastava PA-C>04/30/21 1135Addendum Cosigned By:<Electronically signed by Henry Gardner M.D.>04/30/21 1631Created: 04/30/21 Date of Service April 30, 2021 Assessment & Plan (1) Primary osteoarthritis, left shoulder: Postop day 1 status post left total shoulder arthroplasty with subacromial decompression and distal clavicle excision. PT/OT protocols. Nonweightbearing on the left upper extremity. DVT prophylaxis-aspirin p.o. daily, SCDs. Pain management as written. DC planning-planning for discharge to home with outpatient PT. Admission and Anticipated Discharge Date Admission Date: April 29, 2021 Subjective Postop day 1 Patient sitting in her chair at the bedside. No complaints this morning. Her block is still functioning and her pain control is adequate. Denies shortness of breath, chest pain, lightheadedness. Physical Exam Physical Exam: ssDressings are clean, dry, and intact. Sling is in place. Hemovac is functioning. She has good movement with her fingers however some weakness and numbness in her left thumb continues. She has some weak range of motion of her left wrist secondary to numbness. Capillary fill is less than 2 seconds. Results & Data ([facility]) Vital Signs (Past 12 Hours) Vital Signs Temp Pulse Resp BP Pulse Ox 04/30/21 07:54 36.9 C 88 16 143/80 H 93 04/30/21 03:38 37 C 91 H 16 129/85 91 04/29/21 23:02 37.5 C 92 H 16 167/95 H 90 04/29/21 21:47 37.4 C 90 18 158/90 H 91 Laboratory Results Laboratory Results WBC 8.02 K/uL (4.8-10.8) 04/30/21 05:46 RBC 3.39 M/uL (4.2-5.4) L 06/24/21 05:46 Hgb 10.7 g/dL (12.0-16.0) L 04/30/21 05:46 Hct 32.6 % (37-47) L 04/30/21 05:46 Total Time Total Time Spent Total Time Spent (In Minutes): 5 Discharge Plan Discharge Items Patient Disposition: Home - Home Health Services Reason For Visit: Left Shoulder Osteoarthritis, Impingement Syndrome Discharge Diagnosis: Left Shoulder Osteoarthritis; Impingement Syndrome Activity: Per Instructions section Non-emergency contact: Surgeon Call non-emergency contact if: your pain is not controlled, your temperature is above 101.5, your wound has increased redness and your wound has increased drainage Follow-up/Referrals: Shin Alston DO [Primary Care Provider] - (SPOKE WITH PATIENT RE: HOSPITAL F/U VISIT. SHE WILL CALL PCP TO SCHEDULE HERSELF.) Diet: Carb Consistent or DM2 Addtl Attending Provider Instructions: ACTIVITY RECOMMENDATIONS: SELF CARE INSTRUCTIONS AFTER TOTAL SHOULDER ARTHROPLASTY A. You may do daily exercises as taught in physical therapy while in hospital. No lifting with the operative arm. Please schedule your outpatient physical therapy appointment to begin within 2-3 days after leaving the hospital. Specific restrictions will be written on your physical therapy prescription that is provided to you. B. You are to wear your sling/immobilizer at all times EXCEPT when performing your daily exercises, participating in physical therapy and for hygiene purposes. C. You may perform dry, daily dressing changes. Please keep your incision covered. You may shower 48 hours after surgery. Do not apply soap or any ointment/lotions directly over incision. Do not soak incision in bath tub/swimming pool. D. You may use ice as needed to operative shoulder. SPECIAL CARE INSTRUCTIONS: MEDICATION INSTRUCTIONS: *It is recommended you take Aspirin 325mg daily for four weeks post-op. VERY IMPORTANT TO READ AND REVIEW A. There are a few signs you need to watch for after you are home. Call [facility] at [phone] if you experience any of the followin. Increased severe shoulder pain. Some pain is expected especially when you exercise. 2. Increased swelling in you shoulder or arm; pain or swelling in either upper extremity. 3. Any fluid drainage from the incision. 4. Shortness of breath or chest pain. B. Please call [facility] at [phone] if you have any questions or concerns about your operation or recovery. C. Call your physician if: 1. Temperature is greater than 101 degrees (F). 2. Pain is not relieved by prescribed pain medications. 3. Increase drainage or redness from incision. 4. Unanswered questions or concerns. FOLLOW UP VISIT: Please call [facility] at [phone] to schedule a follow up appointment with Dr. Roy or his PA in 12-14 days from your surgery date. Pending Studies at Discharge: No Stand-Alone Forms: [facility], Opioid Pain Management, Smoking Cessation Medications and DC Order Prescriptions: New acetaminophen 500 mg Tablet 1,000 mg PO Q8 14 Days Qty: 84 RF: 0 polyethylene glycol 3350 [Miralax] 17 gram powder in packet 17 g PO DAILY PRN (Reason: constipation) Qty: 5 RF: 0 oxycodone 5 mg Tablet 5 mg PO Q4H MDD 6 PRN (Reason: pain) Qty: 30 RF: 0 Continued metformin 750 mg tablet extended release 24 hr 750 mg PO BID Qty: 180 RF: 3 pantoprazole 20 mg Tablet,Delayed Release (Dr/Ec) 20 mg PO BID RF: 0 gabapentin 300 mg Tablet Extended Release 24 Hr 600 mg PO TID RF: 0 Linzess 290 mcg Capsule 290 mcg PO QAM RF: 0 PreserVision AREDS-2 [phone]-mg Capsule 1 tab PO HS RF: 0 multivitamin Tablet 1 tab PO QPM RF: 0 losartan 50 mg Tablet 50 mg PO QAM RF: 0 Gaviscon Extra Strength 160-105 mg Tablet,Chewable 1 tab PO DAILY PRN (Reason: Acid Reflux) RF: 0 rosuvastatin [Crestor] 20 mg Tablet 20 mg PO QAM RF: 0 metoprolol tartrate 25 mg Tablet 25 mg PO QAM RF: 0 ranolazine [Ranexa] 1,000 mg Tablet Extended Release 12 Hr 1,000 mg PO BID RF: 0 potassium chloride 20 mEq Tablet Extended Release 20 meq PO QAM RF: 0 duloxetine [Cymbalta] 60 mg capsule,delayed release(DR/EC) 60 mg PO BID RF: 0 ropinirole [Requip] 3 mg tablet 6 mg PO HS RF: 0 aspirin [Adult Low Dose Aspirin] 81 mg tablet,delayed release (DR/EC) 81 mg PO QAM RF: 0 Prevagen 1 dose PO QPM RF: 0 Discontinued ibuprofen 800 mg tablet 800 mg PO Q8H PRN (Reason: Pain) RF: 0 tramadol 50 mg Tablet 50 mg PO Q4H PRN (Reason: Pain, Moderate) Qty: 30 RF: 0 Discharge Orders: Discharge Order (Routine); Ordered 04/30/21 Ordered By: Darin Ramirez/Other Patient Handouts: DVT Post Op Prevention Admission Data Admit Date/Time: 04/29/21 18:09 Attending Provider: Greg Roy Admit Provider: Greg Roy Primary Care Provider: Shin Alston Other Providers: Ameya Bruce. Other Interventions: Discharge Summary Assessment (RN) Last Done: 04/30/21 11:26
== END 2021-04-30 15:31 | disposition home health service (06) | DRG 483 ==
LOC: ASU 12:40 → 3E 18:09

== ENCOUNTER 2022-08-23 05:59 | Inpatient (IN) ==
--- NOTE | 2022-08-03 14:30 | PAT Medication Instructions ---
Medication Instructions Date of Service August 03, 2022 Home Medications Medication Instructions Recorded metformin 750 mg tablet,extended 750 mg PO BID #180 tabs 10/25/19 release 24 hr polyethylene glycol 3350 17 gram 17 g PO DAILY PRN constipation #5 04/30/21 oral powder packet (Miralax) ea gabapentin 300 mg tablet,extended release 24 hr 600 mg PO TID pantoprazole 20 mg tablet,delayed release 20 mg PO BID vit C 250 mg-vit E 90 mg-zinc 40 mg-copper 1 ro-gxjwqw-ykgnoo capsule (PreserVision AREDS-2) 1 tab PO HS aluminum hydrox-magnesium carb 160 mg-105 mg chewable tablet (Gaviscon Extra Strength) 1 tab PO DAILY PRN losartan 50 mg tablet 50 mg PO QAM metoprolol tartrate 25 mg tablet 25 mg PO QAM multivitamin 1 tab PO QPM potassium chloride 20 mEq tablet,extended release 20 meq PO QAM ranolazine 1,000 mg tablet,extended release,12 hr (Ranexa) 1,000 mg PO BID rosuvastatin 20 mg tablet (Crestor) 40 mg PO QAM metformin 750 mg tablet,extended release 24 hr 750 mg PO BID duloxetine 60 mg capsule,delayed release (Cymbalta) 60 mg PO BID ropinirole 3 mg tablet (Requip) 6 mg PO HS aspirin 81 mg tablet,delayed release (Adult Low Dose Aspirin) 81 mg PO QAM polyethylene glycol 3350 17 gram oral powder packet (Miralax) 17 g PO DAILY PRN mecobalamin (vitamin B12) 1,000 mcg chewable tablet 1,000 mcg PO QAM famotidine 20 mg tablet (Zantac-360 (famotidine)) 20 mg PO QPM linaclotide 290 mcg capsule (Linzess) 145 mcg PO QAM semaglutide (weight loss) 2.4 mg/0.75 mL subcutaneous pen injector (Wegovy) 2.4 mg subcut Q7D Continue as directed semaglutide (weight loss) 2.4 mg/0.75 mL subcutaneous pen injector (Wegovy) 2.4 mg subcut Q7D ASK your prescriber and surgeon aspirin 81 mg tablet,delayed release (Adult Low Dose Aspirin) 81 mg PO QAM STOP taking 2 weeks before surgery vit C 250 mg-vit E 90 mg-zinc 40 mg-copper 1 rp-iucatw-ttcgzc capsule (PreserVision AREDS-2) 1 tab PO HS aluminum hydrox-magnesium carb 160 mg-105 mg chewable tablet (Gaviscon Extra Strength) 1 tab PO DAILY PRN DO NOT take the morning of surgery losartan 50 mg tablet 50 mg PO QAM potassium chloride 20 mEq tablet,extended release 20 meq PO QAM metformin 750 mg tablet,extended release 24 hr 750 mg PO BID polyethylene glycol 3350 17 gram oral powder packet (Miralax) 17 g PO DAILY PRN mecobalamin (vitamin B12) 1,000 mcg chewable tablet 1,000 mcg PO QAM linaclotide 290 mcg capsule (Linzess) 145 mcg PO QAM Take morning of surgery With a small sip of water, OTHERWISE NOTHING TO EAT OR DRINK AFTER MIDNIGHT: gabapentin 300 mg tablet,extended release 24 hr 600 mg PO TID pantoprazole 20 mg tablet,delayed release 20 mg PO BID metoprolol tartrate 25 mg tablet 25 mg PO QAM ranolazine 1,000 mg tablet,extended release,12 hr (Ranexa) 1,000 mg PO BID rosuvastatin 20 mg tablet (Crestor) 40 mg PO QAM duloxetine 60 mg capsule,delayed release (Cymbalta) 60 mg PO BID Take evening before surgery gabapentin 300 mg tablet,extended release 24 hr 600 mg PO TID pantoprazole 20 mg tablet,delayed release 20 mg PO BID multivitamin 1 tab PO QPM ranolazine 1,000 mg tablet,extended release,12 hr (Ranexa) 1,000 mg PO BID metformin 750 mg tablet,extended release 24 hr 750 mg PO BID duloxetine 60 mg capsule,delayed release (Cymbalta) 60 mg PO BID ropinirole 3 mg tablet (Requip) 6 mg PO HS famotidine 20 mg tablet (Zantac-360 (famotidine)) 20 mg PO QPM Other Notes If you have any questions please call us at [phone] or [phone] or [phone] or [phone]
--- NOTE | 2022-08-09 11:46 | Anesthesiology Consultation ---
Date of Service August 09, 2022 Assessment & Plan (1) Encounter for pre-operative examination: - check BSG am DOS. Chart Review Chart Review: Acceptable Risk for Surgery and Patient seen in Pre Admission Testing Teaching & Discussion Pre-Anesthesia Teaching/Discussion Notes: Instructed NPO after midnight before surgery, except medications with 15 cc of water. Medication instructions provided according to the PAT guidelines. History Surgery Operation Date: 08/23/22 10:05 Proposed Procedures p T12-L1 Decompression, T11-L1 Fusion, Possible Hardware Removal, Spinal Cord Monitoring - Leandro Segura DO Height/Weight Height: 5 ft 2 in Weight: 84.8 kg Allergies Allergy/AdvReac Type Severity Reaction Status Date / Time ampicillin Allergy Intermediate SWELLING Verified 08/02/22 14:39 OF LIPS pregabalin [From Lyrica] Allergy Intermediate Swelling Verified 08/02/22 14:39 of extremities vancomycin Allergy Intermediate ITCHINESS Verified 08/02/22 14:39 AND SKIN REDNESS Medications Home Medications Medication Instructions Recorded Confirmed Last Taken gabapentin 300 mg tablet,extended 600 mg PO TID 05/04/19 08/02/22 04/29/21 09:00 release 24 hr pantoprazole 20 mg tablet,delayed 20 mg PO BID 05/04/19 08/02/22 04/29/21 09:00 release vit C 250 mg-vit E 90 mg-zinc 40 1 tab PO HS 05/04/19 08/02/22 04/28/21 10:00 mg-copper 1 rf-xidade-xpgvyz capsule (PreserVision AREDS-2) aluminum hydrox-magnesium carb 160 1 tab PO DAILY PRN Acid Reflux 05/25/19 08/02/22 Unknown mg-105 mg chewable tablet (Gaviscon Extra Strength) losartan 50 mg tablet 50 mg PO QAM 05/25/19 08/02/22 04/29/21 09:00 metoprolol tartrate 25 mg tablet 25 mg PO QAM 05/25/19 08/02/22 04/29/21 09:00 multivitamin 1 tab PO QPM 05/25/19 08/02/22 04/28/21 10:00 potassium chloride 20 mEq 20 meq PO QAM 05/25/19 08/02/22 04/28/21 10:00 tablet,extended release ranolazine 1,000 mg 1,000 mg PO BID 05/25/19 08/02/22 04/29/21 09:00 tablet,extended release,12 hr (Ranexa) rosuvastatin 20 mg tablet (Crestor) 40 mg PO QAM 05/25/19 08/02/22 04/29/21 09:00 metformin 750 mg tablet,extended 750 mg PO BID #180 tabs 10/25/19 08/02/22 04/28/21 10:00 release 24 hr duloxetine 60 mg capsule,delayed 60 mg PO BID 06/03/20 08/02/22 04/29/21 09:00 release (Cymbalta) ropinirole 3 mg tablet (Requip) 6 mg PO HS 06/03/20 08/02/22 04/28/21 21:00 aspirin 81 mg tablet,delayed 81 mg PO QAM 02/02/21 08/02/22 04/28/21 10:00 release (Adult Low Dose Aspirin) polyethylene glycol 3350 17 gram 17 g PO DAILY PRN constipation #5 04/30/21 08/02/22 Unknown oral powder packet (Miralax) ea mecobalamin (vitamin B12) 1,000 1,000 mcg PO QAM 06/10/21 08/02/22 Unknown mcg chewable tablet famotidine 20 mg tablet 20 mg PO QPM 10/28/21 08/02/22 Unknown (Zantac-360 (famotidine)) linaclotide 290 mcg capsule 145 mcg PO QAM 10/28/21 08/02/22 Unknown (Linzess) semaglutide (weight loss) 2.4 2.4 mg subcut Q7D 08/02/22 08/02/22 Unknown mg/0.75 mL subcutaneous pen injector (Wegovy) Past Medical History Medical History (Updated 08/09/22 @ 11:41 by Shonda Santoyo PA-C) Anxiety Depression Diabetes mellitus, type 2 NIDDM GERD (gastroesophageal reflux disease) controlled, stable per pt Goiter H/O chest pain Per cardio, hx of chest pain syndrome possible secondary to syndrome X- relieved by Ranexa Angiographically normal coronary arteries per 03/10/21 cardiac cath Hiatal hernia History of COVID-19 11/2020 cough, sob, n/v, no hospitalization, no current issues Hyperlipidemia Hypertension controlled, stable per pt IBS (irritable bowel syndrome) Incontinent of urine Macular degeneration BL Multiple thyroid nodules Nutcracker esophagus Slow to wake up after anesthesia Pt denies h/o ICU transfer or reintubation, but reports she was admitted after her lap jacques when she was supposed to go home same-day. (2006 at [facility] per cardio note) Patient denies h/o stroke, seizures, heart attack, heart failure, blood clots or blood transfusions. Exercise / Class Metabolic Activity II 4-5 Yardwork/Stairs/Walk up hill (denies CP or SOB With 1 FOS) Past Family History Family History Mother , at 52. Heart disease Hypercholesteremia Hypertension Blood clot in vein Father , at 76 Lymphoma Lung cancer Asthma Sister Heart disease Multiple sclerosis Slow to wake up after anesthesia Sister Diabetes Heart disease Thyroid disease Brother Heart disease Sister Heart disease Hot thyroid nodule Brother Diabetes Heart disease Other Cancer Past Surgical History Surgical History (Updated 08/09/22 @ 11:43 by Shonda Santoyo PA-C) History of back surgery X3. L2-L4 decompression fusion 05/25/19: Grade 1 view, MAC 3, ETT 7. History of cardiac cath March 2021 [facility]- no stents/angioplasty 2012 [facility]. No intervention performed. "Essentially normal coronary arteries" per cardio. History of colonoscopy with polypectomy History of fusion of cervical spine Limited ROM side to side History of left shoulder replacement 04/29/21: Grade 1 view, MAC 3, ETT 7 + PNB. History of right knee joint replacement X3- 2 revisions Hx of bilateral breast reduction surgery Hx of cholecystectomy Hx of total hysterectomy S/P thyroid biopsy benign Past Anesthesia History Other (slow to wake requiring overnight stay, denies re-intubation; sister slow to wake) History of PONV No Hx of PONV and No Hx of Motion Sickness Social History Smoking Status: Never smoker Do You Dip or Chew Tobacco: No Hx Alcohol Use: Yes Alcohol type: beer and wine alcohol intake frequency: holidays/special occasions only Hx Substance Use: No substance use type: does not use Review of Systems Snoring, denies witnessed apneas. Patient denies chest pain, shortness of breath, dyspnea on exertion, fever, chills, cough, wheezing, or palpitations. Physical Exam Vital Signs Vitals BP 131/71 P 77 TEMP 98.1 SP02 98% on RA RESP 17 Physical Full cervical extension range of motion without pain TMD 3.5 finger breadths Mallampati Score 3 Dentition: intact, plates upper and lower; two implants lower front; denies chipped or loose teeth Lungs: normal respiratory effort. Clear throughout to auscultation, no adventitious breath sounds Cardiac: regular rate and rhythm, no murmurs noted Carotid arteries: negative bruit bilat Lab Results Anesthesia Preop Results Results Anesthesia Widget: WBC 7.36 K/ul (4.8-10.8) 08/09/22 Hgb 13.7 g/dl (12.0-16.0) 08/09/22 Hct 40.5 % (34.1-44.9) 08/09/22 Plt 198 K/uL (130-400) 08/09/22 Na 140 mmol/L (136-145) 08/09/22 K 3.2 mmol/L (3.5-5.1) L 08/09/22 Cl 105 mmol/L (98-107) 08/09/22 CO2 27 mmol/L (21-32) 08/09/22 BUN 14 mg/dl (6-23) 08/09/22 Creat 0.75 mg/dl (0.6-1.2) 08/09/22 Glucose Level 98 mg/dl (70-99(Fasting)) 08/09/22 PT 10.7 Seconds (9.0-12.0) 08/09/22 PTT 24.9 Seconds (21.0-31.0) 08/09/22 INR 1.0 (0.9-1.1) 08/09/22 HA1c 6.0 % (4.5-5.6) H 08/09/22 Urine Color Dark Yellow 08/09/22 Urine Appearance Cloudy (Clear) A 08/09/22 Urine pH 6.0 (4.5-7.5) 08/09/22 Urine Specific [place] 1.043 (1.000-1.030) H 08/09/22 Urine Protein 1+ (Negative) H 08/09/22 Urine Glucose (UA) Negative (Negative) 08/09/22 Urine Ketones 1+ (Negative) H 08/09/22 Urine Blood Negative (Negative) 08/09/22 Urine Nitrite Negative (Negative) 08/09/22 Urine Bilirubin Negative (Negative) 08/09/22 Urine Urobilinogen Negative (Negative) 08/09/22 Urine Leukocyte Esterase 1+ (Negative) H 08/09/22 Urine WBC (Auto) 5-10 /hpf (0-5) H 08/09/22 Urine RBC (Auto) 0-4 /hpf (0-4) 08/09/22 Urine Hyaline Casts (Auto) 1-5 /lpf (0-5) 08/09/22 Urine Epithelial Cells (Auto) 10-20 /lpf (0-5) H 08/09/22 Urine Bacteria (Auto) Negative (Negative) 08/09/22 Blood Type B Positive 08/09/22 Antibody Screen NEGATIVE 08/09/22 Testing Electrocardiogram Date: 08/09/22 NSR, rate 72 bpm Chest X-Ray Date: 08/09/22 Cardiomediastinal and hilar silhouettes are unchanged. No pneumothorax, consolidation or overt pulmonary edema. Degenerative changes of the shoulders and spine. Cholecystectomy. Cervical and partially imaged lumbar spinal fusion hardware and left shoulder arthroplasty. IMPRESSION: No acute process. Echocardiogram Date: 02/18/21 EF 55% No focal wall motion abnormalities of the LV Mild mitral regurgitation Mild tricuspid regurgitation Pulmonary artery pressure estimated 23 mmHg Borderline LVH Stress Test Date: 02/18/21 Abnormal myocardial perfusion without evidence for pharmacologically induced lateral ischemia Normal LV wall motion and thickening EF 55% Subsequent cardiac catheterization without significant CAD Cardiac Catheterization Date: 03/10/21 Left main: angiographically normal LAD: angiographically normal Cx: angiographically normal RCA: angiographically normal COVID-19 Risk Screen Screening Information COVID-19 Screen Date: 08/09/22 Exposure 21 Days Family/Household +COVID Last 21 Days: No Exposure 10 Days Any COVID Exposure Last 10 Days: No Symptoms Last 10 Days Experienced COVID Sx Last 10 Days: No + COVID 0-90 Days COVID + in Last 0-90 Days: No
[2022-08-23] MEDS ORDERED: LR 15ML/HR IV SCH (06:00)
[2022-08-23] MEDS ORDERED: GABAPENTIN 300 MG CAP PO SCH (06:00)
[2022-08-23] MEDS ORDERED: CeleBREX 200 MG CAP PO SCH (06:00)
[2022-08-23] MEDS ORDERED: CLINDAMYCIN/D5W 600 MG/50 ML BAG **Premixed Bag IV SCH (06:00)
[2022-08-23] MEDS ORDERED: ACETAMINOPHEN 500 MG TAB PO SCH (06:00)
[2022-08-23] MEDS ORDERED: BUPIVACAINE/EPINEPHRINE 0.25% 1:200,000 30 ML VIAL ONE (07:01)
[2022-08-23] MEDS: ceFAZolin 330 MG/ML 1 GM VIAL ONE ×2 (07:04→08:31)
[2022-08-23] MEDS ORDERED: MIDAZOLAM HCL 1 MG/ML 2ML VIAL ONE (07:07)
[2022-08-23] MEDS ORDERED: fentaNYL citrate 100 MCG/2 ML VIAL ONE (07:07)
[2022-08-23] MEDS ORDERED: ONDANSETRON INJ 2 MG/ML 2 ML VIAL IV PRN ×2 (07:17→11:59)
[2022-08-23] MEDS ORDERED: ePHEDrine sulfate 50 MG/ML AMP IV PRN (07:17)
[2022-08-23] MEDS ORDERED: fentaNYL citrate 100 MCG/2 ML VIAL IV PRN (07:17)
[2022-08-23] MEDS ORDERED: ATROPINE SULFATE 0.1 MG/ML 10ML SYR IV PRN (07:17)
--- NOTE | 2022-08-23 07:29 | History & Physical Bridge Note ---
Date of Service August 23, 2022 History & Physical Bridge Note I have examined the patient, reviewed the History & Physical and in the interval since the performance of the History & Physical I have noted the following changes of clinical significance: no changes noted
--- NOTE | 2022-08-23 07:30 | History & Physical Report ---
Date of Service August 23, 2022 Assessment & Plan (1) Spinal stenosis, lumbar region with neurogenic claudication: Plan: T12-L1 decompression, T11-L1 fusion, possible hardware removal History of Present Illness Chief Complaint: Back and bilateral leg pain Primary Care Provider: Sihn Alston, DO This is a 67-year-old female who presents with Back and probably) nonoperative care she is here for surgical invention. Allergies Allergy/AdvReac Type Severity Reaction Status Date / Time ampicillin Allergy Intermediate SWELLING Verified 08/23/22 06:32 OF LIPS pregabalin [From Lyrica] Allergy Intermediate Swelling Verified 08/23/22 06:32 of extremities vancomycin Allergy Intermediate ITCHINESS Verified 08/23/22 06:32 AND SKIN REDNESS Home Medications Medication Instructions Recorded Confirmed Type gabapentin 300 mg tablet,extended 600 mg PO TID 05/04/19 08/23/22 History release 24 hr pantoprazole 20 mg tablet,delayed 20 mg PO BID 05/04/19 08/23/22 History release vit C 250 mg-vit E 90 mg-zinc 40 1 tab PO HS 05/04/19 08/23/22 History mg-copper 1 [id number] capsule (PreserVision AREDS-2) aluminum hydrox-magnesium carb 160 1 tab PO DAILY PRN Acid Reflux 05/25/19 08/23/22 History mg-105 mg chewable tablet (Gaviscon Extra Strength) losartan 50 mg tablet 50 mg PO QAM 05/25/19 08/23/22 History metoprolol tartrate 25 mg tablet 25 mg PO QAM 05/25/19 08/23/22 History multivitamin 1 tab PO QPM 05/25/19 08/23/22 History potassium chloride 20 mEq 20 meq PO QAM 05/25/19 08/23/22 History tablet,extended release ranolazine 1,000 mg 1,000 mg PO BID 05/25/19 08/23/22 History tablet,extended release,12 hr (Ranexa) rosuvastatin 20 mg tablet (Crestor) 40 mg PO QAM 05/25/19 08/23/22 History metformin 750 mg tablet,extended 750 mg PO BID #180 tabs 10/25/19 08/23/22 Rx release 24 hr duloxetine 60 mg capsule,delayed 60 mg PO BID 06/03/20 08/23/22 History release (Cymbalta) ropinirole 3 mg tablet (Requip) 6 mg PO HS 06/03/20 08/23/22 History aspirin 81 mg tablet,delayed 81 mg PO QAM 02/02/21 08/23/22 History release (Adult Low Dose Aspirin) polyethylene glycol 3350 17 gram 17 g PO DAILY PRN constipation #5 04/30/21 08/23/22 Rx oral powder packet (Miralax) ea mecobalamin (vitamin B12) 1,000 1,000 mcg PO QAM 06/10/21 08/23/22 History mcg chewable tablet famotidine 20 mg tablet 20 mg PO QPM 10/28/21 08/23/22 History (Zantac-360 (famotidine)) linaclotide 290 mcg capsule 145 mcg PO QAM 10/28/21 08/23/22 History (Linzess) semaglutide (weight loss) 2.4 2.4 mg subcut Q7D 08/02/22 08/23/22 History mg/0.75 mL subcutaneous pen injector (Wegovy) Past Med/Surg History Medical History Anxiety Depression Diabetes mellitus, type 2 NIDDM GERD (gastroesophageal reflux disease) controlled, stable per pt Goiter H/O chest pain Per cardio, hx of chest pain syndrome possible secondary to syndrome X- relieved by Ranexa Angiographically normal coronary arteries per 03/10/21 cardiac cath Hiatal hernia History of COVID-19 11/2020 cough, sob, n/v, no hospitalization, no current issues Hyperlipidemia Hypertension controlled, stable per pt IBS (irritable bowel syndrome) Incontinent of urine Macular degeneration BL Multiple thyroid nodules Nutcracker esophagus Slow to wake up after anesthesia Pt denies h/o ICU transfer or reintubation, but reports she was admitted after her lap jacques when she was supposed to go home same-day. (2006 at [facility] per cardio note) Surgical History History of back surgery X3. L2-L4 decompression fusion 05/25/19: Grade 1 view, MAC 3, ETT 7. History of cardiac cath March 2021 [facility]- no stents/angioplasty 2012 [place]. No intervention performed. "Essentially normal coronary arteries" per cardio. History of colonoscopy with polypectomy History of fusion of cervical spine Limited ROM side to side History of left shoulder replacement 04/29/21: Grade 1 view, MAC 3, ETT 7 + PNB. History of right knee joint replacement X3- 2 revisions Hx of bilateral breast reduction surgery Hx of cholecystectomy Hx of total hysterectomy S/P thyroid biopsy benign Family History Mother , at 52. Heart disease Hypercholesteremia Hypertension Blood clot in vein Father , at 76 Lymphoma Lung cancer Asthma Sister Heart disease Multiple sclerosis Slow to wake up after anesthesia Sister Diabetes Heart disease Thyroid disease Brother Heart disease Sister Heart disease Hot thyroid nodule Brother Diabetes Heart disease Other Cancer Social History Smoking Status: Never smoker Second Hand Exposure: No; Do You Dip or Chew Tobacco: No; Tobacco Cessation Education Requested by Patient: No Hx Alcohol Use: Yes Alcohol type: beer and wine Hx Substance Use: No Preferred Language: Hungarian Communication Ability: Effective 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
[2022-08-23] MEDS ORDERED: FLOSEAL HEMOSTATIC MATRIX 10ML TOP ONE (08:03)
[2022-08-23] MEDS ORDERED: HYDROmorphone INJ 2 MG/ML SYR/VIAL ONE (08:09)
[2022-08-23] MEDS ORDERED: ONDANSETRON INJ 2 MG/ML 2 ML VIAL ONE (08:17)
[2022-08-23] MEDS ORDERED: LIDOCAINE 2% MPF LOCAL 5 ML VIAL INFIL ONE (08:17)
[2022-08-23] MEDS ORDERED: ROCURONIUM BROMIDE 10 MG/ML 5 ML VIAL IV ONE (08:17)
[2022-08-23] MEDS ORDERED: GLYCOPYRROLATE 0.2 MG/ML VIAL ONE (08:17)
[2022-08-23] MEDS ORDERED: ePHEDrine sulfate 50 MG/ML SYR ONE (08:17)
[2022-08-23] MEDS ORDERED: DEXAMETHASONE SOD INJ 4 MG/ML VIAL ONE (08:17)
[2022-08-23] MEDS ORDERED: PHENYLEPHRINE 100MCG/ML 5ML SYR ONE (08:17)
[2022-08-23] MEDS ORDERED: NEOSTIGMINE METHYLSULFATE 1 MG/ML 10ML VIAL ONE (08:17)
[2022-08-23] MEDS ORDERED: LARYING-O-JET KIT (LTA) ONE (08:17)
[2022-08-23] MEDS ORDERED: PROPOFOL IV EMULSION 10 MG/ML 20 ML VIAL IV ONE (08:17)
--- NOTE | 2022-08-23 10:13 | Operative Report ---
Post Operative Report Pre & Post Diagnosis Operation Date: 08/23/22 07:45 Pre-Op Diagnosis: Spinal Spenosis Lumbar Region with Neurogenic Post-Op Diagnosis: Spinal Spenosis Lumbar Region with Neurogenic I identified the patient and participated in the time-out.: Yes Procedure Operation Date: 08/23/22 07:45 Actual Procedures #1 removal of posterior instrumentation L2-L4. #2 exploration of fusion L2-4. #3 lumbar compression bilateral medial facetectomies and foraminotomies T11-T12, T12-L1 and L1-L2. #4 posterior spinal fusion T10-L2. #5 placement posterior segmental instrumentation T11-L4. #6 interbody fusion L1-L2. #7 placement of Spira 11 x 26 mm cage at L1-L2. #8 placement locally harvested morselized autograft and posterior gutters. #9 placement of I factor in the interbody space and infuse collagen sponge, master graft in the posterior lateral gutters. Surgeon Leandro Segura, DO [employer] Manager Mahsa Barrera Estimated Blood Loss 500 Findings See Below The patient is 5 foot 2 inches tall weighing over 87 kg with a BMI in excess of 35. The patient's body habitus did contribute to significant technical difficulty required deeper retractors and longer instruments in order to perform her procedure. This at least 50% increased operative time. Specimens None Indications This is a 67-year-old female known to me the presents with above-mentioned diagnosis after failed course of nonoperative care she is here for surgical invention. Description of Procedure Patient was met with identified informed consent obtained. Patient was then taken to the operative suite underwent patient placed in a prone position the [place] table top Brennan frame. All bony prominences well-padded eyes inspected to ensure no external pressure placed upon the. This point the cervical spine was prepped and draped in a sterile fashion. Sharp dissection with the assistance of Bovie cautery performed down to and exposing the lamina and transverse processes of T11-T12 L1 and instrumentation at L2-L3-L4 bilaterally. And proceeded move the hardware bilaterally explore the fusion mass noting it to be mature and intact. Informed complete laminectomy of L1 T12 and partial laminectomy of T8 11 including bilateral medial facetectomies and foraminotomies addressing severe spinal stenosis. Pedicle screws then placed in T11-T12 L1-L2 and L4 bilaterally with assistance of fluoroscopy and the proper sized sunita contoured and placed. By way of a transforaminal approach on the right a complete discectomy of L1-L2 was performed endplates curetted to subcortically bone 11 x 26 mm spiral cage with I factor tapped in position. The rods then locked in final position bilaterally. The transverse processes of [id number] L1 and L2 were then burred to subcortical bleeding bone infuse collagen sponge from mass graft locally harvested morselized autograft was placed in the posterior gutters. 15 round SIMON drain inserted. The incision was then closed with 1 Vicryl to fascia 2-0 Vicryl subcutaneously and 4 Monocryl for final skin closure. Steri-Strip sterile dressings placed. Patient waken taken to PACU stable condition. Please note spinal cord monitoring was utilized at the procedure no changes noted. Lastly Mahsa Barrera was present at the entire surg oscar while the patient positioning complex portions of the surgery and final skin closure. I attest to the content of the Intraoperative Record and any orders documented therein. Any exceptions are noted below.
--- NOTE | 2022-08-23 11:21 | Anesthesiology Progress Note ---
Date of Service August 23, 2022 Anesthesia Post Procedure Vital Signs Vital Signs: Temp Pulse Resp BP BP Pulse Ox O2 Del Method 08/23/22 11:15 72 14 133/68 95 Nasal Cannula 08/23/22 11:05 98.4 F 71 14 147/91 H 97 Nasal Cannula 08/23/22 10:45 71 11 L 143/75 H 100 Oxymask 08/23/22 10:55 71 14 131/75 93 Nasal Cannula 08/23/22 10:35 67 13 123/71 97 Oxymask 08/23/22 10:29 98.8 F 70 25 H 133/79 99 Oxymask 08/23/22 06:28 98.4 F 65 20 175/96 H 97 Room Air O2 Flow Rate 08/23/22 11:15 2 08/23/22 11:05 2 08/23/22 10:45 5 08/23/22 10:55 2 08/23/22 10:35 5 08/23/22 10:29 5 08/23/22 06:28 Transfer of Care Handoff Completed per policy Notes Mental Status: alert / awake / arousable and participated in evaluation Patient Amnestic to Procedure: Yes Nausea / Vomiting: adequately controlled Pain: adequately controlled Airway Patency, RR, SpO2: stable & adequate BP & HR: stable & adequate Hydration State: stable & adequate Anesthetic Complications: no major complications apparent and Pt Satisfied with anesthetic care
[2022-08-23] MEDS ORDERED: ACETAMINOPHEN 500 MG TAB PO PRN (11:59)
[2022-08-23] MEDS ORDERED: ACETAMINOPHEN 1,000 MG/100 ML VIAL IV PRN (11:59)
[2022-08-23] MEDS ORDERED: hydrOXYzine HCl 25 MG TAB PO PRN (11:59)
[2022-08-23] MEDS ORDERED: FAMOTIDINE 20 MG TAB PO PRN (11:59)
[2022-08-23] MEDS ORDERED: HYDROmorphone INJ 0.5 MG/0.5 ML SYR IV PRN (11:59)
[2022-08-23] MEDS ORDERED: LORazepam 0.5 MG TAB PO PRN (11:59)
[2022-08-23] MEDS ORDERED: MAGNESIUM HYDROXIDE SUSP 30 ML UDC PO PRN (11:59)
[2022-08-23] MEDS ORDERED: ALUMINUM/MAGNESIUM SUSP 30 ML UDC PO PRN (11:59)
[2022-08-23] MEDS ORDERED: PHARMACY GLYCEMIC MGMT CONSULT PRN ×2 (11:59→15:40)
[2022-08-23] MEDS ORDERED: PROMETHAZINE HCL 12.5 MG in SODIUM CHLORIDE 0.9% 50 ML IV PRN (11:59)
[2022-08-23] MEDS ORDERED: NALOXONE HCL 0.4 MG/1 ML VIAL/CARP IV PRN (11:59)
[2022-08-23] MEDS ORDERED: ONDANSETRON 4 MG OD TAB PO PRN (11:59)
[2022-08-23] MEDS ORDERED: LORazepam 0.5 MG in SYRINGE 0 ML IV PRN (11:59)
[2022-08-23] MEDS ORDERED: bisacodyL 10 MG SUPP PR PRN (11:59)
[2022-08-23] MEDS ORDERED: NON-FORMULARY MEDICATION (Aluminum Hydrox-Magnesium Carb [Gaviscon Extra Strength] 160-105 PO PRN (11:59)
[2022-08-23] MEDS ORDERED: HYDROmorphone INJ 1 MG/ML SYRINGE IV PRN (11:59)
[2022-08-23] MEDS ORDERED: METOCLOPRAMIDE HCL INJ 5 MG/ML 2 ML VIAL IV PRN (11:59)
[2022-08-23] MEDS ORDERED: SOD PHOSPHATE/SOD BIPHOSPHATE ENEMA 132 ML BTL PR PRN (11:59)
[2022-08-23] MEDS ORDERED: traMADol HCL 50 MG TABLET PO PRN (11:59)
--- NOTE | 2022-08-23 12:40 | Fluoroscopy Report ---
FL lumbar spine 2-3V CLINICAL HISTORY: T12-L1 DECOMP/FUSION COMPARISON STUDY: None. FLUOROSCOPY TIME: 32 seconds. FINDINGS: 4 fluoroscopic spot images of the lumbar spine demonstrate posterior decompression and fusi on from the lower thoracic to the lower lumbar spine with pedicle screws and rods. Exact levels are d ifficult to identify on these spot images but appear to represent the T11-L4 levels. There is interve rtebral cages at L4-5 and L5-S1. The hardware appears intact. IMPRESSION: Fluoroscopic assistance provided for thoracolumbar posterior fusion as above. ACT 112: Negative or not required by law. Electronically signed by: Lasha Henson M.D. 08/23/2022 12:38 PM
--- NOTE | 2022-08-23 12:54 | Pharmacy Report ---
Pharmacy Glycemic Short Note 2 - Date of Service August 23, 2022 - Glycemic Short BSG Results (Last 24 hours): 08/23/22 08/23/22 08/23/22 06:56 10:31 12:10 POC Glucose 100 H 107 H 121 H OUTPATIENT ANTIDIABETIC REGIMEN: * Metformin ER 750 mg PO BIDM * Ozempic 2.4 mg SC every Tuesday * HbA1c = 6.0% (08/09/22) ASSESSMENT: * 67 yo F admitted postoperatively following a spinal decompression and fusion. Pharmacy has been consulted to assist with inpatient glycemic management. Patient is a well controlled type 2 diabetic on Metformin and Ozempic. * BSGs perioperatively were: 100-107-121 mg/dL. Did appear to received 12 mg of IV dexamethasone intraoperatively. Scheduled to get 6 mg of IV dexamethasone starting tomorrow morning x 3 days. Ordered a type 2 diabetic diet. * Will start Lantus at 0.2 units/kg to cover for steroid-induced hyperglycemia. Novolog will be based on weight/stress of 2 which has previously controlled BSGs postoperatively. Holding metformin for now but can likely be resumed once tolerating diet. PLAN FOR INPATIENT GLYCEMIC CONTROL: * Hold outpatient oral diabetes medications * Basal insulin * Lantus 20 units SC daily starting now * Bolus insulin * NovoLog per scale ACHS or Q6hrs while NPO * Goal Range: Low 110 mg/dL - High 140 mg/dL * Correction Factor: 25 mg/dL/unit * Nutritional / Prandial insulin per carb ratio of 1 unit per 8 grams CHO consumed
[2022-08-23] MEDS ORDERED: GLUCOSE 10 TAB/TUBE PO PRN (13:00)
[2022-08-23] MEDS ORDERED: GLUCAGON FOR INJ 1 MG VIAL IM PRN (13:00)
[2022-08-23] MEDS ORDERED: DEXTROSE 50% 50 ML SYRINGE IV PRN (13:00)
[2022-08-23] MEDS ORDERED: CARBOHYDRATES FOR HYPOGLYCEMIA PO PRN ×2 (13:00→15:40)
[2022-08-23] MEDS ORDERED: GLUCOSE 40% GEL 15 GM TUBE PO PRN (13:00)
[2022-08-23] MEDS: SODIUM CHLORIDE 0.9% 1000ML 1,000 ML IV SCH ×2 (13:25→22:42)
[2022-08-23] MEDS: LANTUS PER UNIT CHARGE SQ SCH (13:34)
[2022-08-23] MEDS: INSULIN ASPART PER UNIT SC SCH ×3 (13:34→21:26)
[2022-08-23] MEDS ORDERED: COUGH DROP (SUGAR FREE) LOZ 24 LOZ/1 BOX BUCCAL PRN (13:40)
[2022-08-23] MEDS: GABAPENTIN 600 MG TAB PO SCH ×2 (14:59→21:27)
[2022-08-23] MEDS: oxyCODONE HCL IR 5 MG TAB (IMMEDIATE RELEASE) PO PRN (15:04)
--- NOTE | 2022-08-23 15:45 | Consultation ---
Date of Consultation August 23, 2022 Assessment & Plan (1) Spinal stenosis, lumbar region with neurogenic claudication: Status post T12-L1 Decompression, T11-L1 Fusion, Hardware Removal L2-L4, Spinal Cord Monitoring on 08/23 Comfortable; not in any distress. No shortness of breath, chest pain, abdominal pain or discomfort. Rosas in place Follow. Hemoglobin; monitor. DVT prophylaxis as per primary Monitor for pneumonia, ileus, UTI and DVT. (2) Diabetes mellitus, type 2: Obtain A1c in a.m. left Currently on Lantus 20 units at at bedtime and NovoLog Might need adjustment as she is currently on steroids; pharmacy on board. (3) Hypertension: Currently normotensive. Continue on home losartan and metoprolol for now. (4) Hyperlipidemia: Continue Lipitor (5) Depression: Continue Cymbalta (6) Swallowing difficulty: Monitor for any episode of dysphagia. Modified diet as necessary. (7) GERD (gastroesophageal reflux disease): On Protonix twice daily; can go to home medication on discharge History of Present Illness Reason for Consultation: Postop care forp T12-L1 Decompression, T11-L1 Fusion, Hardware Removal L2-L4, Spinal Cord Monitoring Attending Physician: Leandro Segura, DO History of Present Illness Patient is a 67-year-old female with past medical history of type 2 diabetes mellitus, hyperlipidemia, hypertension, multinodular goiter is admitted for elective T12-L1 Decompression, T11-L1 Fusion, Hardware Removal L2-L4. She underwent surgery today. She was seen and examined after the surgery. She is lying in the bed comfortably. She reports that effects of anesthesia is slowly wearing off. She denies any headache, dizziness, weakness/numbness of any body part, fever, chills, chest pain, shortness of breath, abdominal pain. She has a Rosas catheter which is draining clear urine. She has a history of type 2 diabetes mellitus for which she is on metformin. She is unsure of her last A1c. She also follows up with endocrinology for thyroid nodules and had ultrasound done as outpatient. She is on metoprolol and losartan for high blood pressure. She has a history of swallowing difficulty for which she had seen gastroenterology and had undergone endoscopy recently. She is able to swallow solid and liquid. She is on Protonix and Pepcid for GERD. She also is on Cymbalta for depression. She is prescribed Ranexa for angina. Her primary care doctor is Dr. Alston. No history of smoking, alcohol abuse or recreational drug use. Allergies Allergy/AdvReac Type Severity Reaction Status Date / Time ampicillin Allergy Intermediate SWELLING Verified 08/23/22 06:32 OF LIPS pregabalin [From Lyrica] Allergy Intermediate Swelling Verified 08/23/22 06:32 of extremities vancomycin Allergy Intermediate ITCHINESS Verified 08/23/22 06:32 AND SKIN REDNESS Home Medications Medication Instructions Recorded Confirmed Type pantoprazole 20 mg tablet,delayed 20 mg PO BID 05/04/19 08/23/22 History release vit C 250 mg-vit E 90 mg-zinc 40 1 tab PO HS 05/04/19 08/23/22 History mg-copper 1 qq-bexceh-mrrsmc capsule (PreserVision AREDS-2) aluminum hydrox-magnesium carb 160 1 tab PO DAILY PRN Acid Reflux 05/25/19 08/23/22 History mg-105 mg chewable tablet (Gaviscon Extra Strength) losartan 50 mg tablet 50 mg PO QAM 05/25/19 08/23/22 History metoprolol tartrate 25 mg tablet 25 mg PO QAM 05/25/19 08/23/22 History multivitamin 1 tab PO QPM 05/25/19 08/23/22 History potassium chloride 20 mEq 20 meq PO QAM 05/25/19 08/23/22 History tablet,extended release ranolazine 1,000 mg 1,000 mg PO BID 05/25/19 08/23/22 History tablet,extended release,12 hr (Ranexa) rosuvastatin 20 mg tablet (Crestor) 40 mg PO QAM 05/25/19 08/23/22 History metformin 750 mg tablet,extended 750 mg PO BID #180 tabs 10/25/19 08/23/22 Rx release 24 hr duloxetine 60 mg capsule,delayed 60 mg PO BID 06/03/20 08/23/22 History release (Cymbalta) ropinirole 3 mg tablet (Requip) 6 mg PO HS 06/03/20 08/23/22 History aspirin 81 mg tablet,delayed 81 mg PO QAM 02/02/21 08/23/22 History release (Adult Low Dose Aspirin) polyethylene glycol 3350 17 gram 17 g PO DAILY PRN constipation #5 04/30/21 08/23/22 Rx oral powder packet (Miralax) ea mecobalamin (vitamin B12) 1,000 1,000 mcg PO QAM 06/10/21 08/23/22 History mcg chewable tablet famotidine 20 mg tablet 20 mg PO QPM 10/28/21 08/23/22 History (Zantac-360 (famotidine)) linaclotide 290 mcg capsule 145 mcg PO QAM 10/28/21 08/23/22 History (Linzess) semaglutide (weight loss) 2.4 2.4 mg subcut Q7D 08/02/22 08/23/22 History mg/0.75 mL subcutaneous pen injector (Wegovy) gabapentin 600 mg tablet 600 mg PO TID 08/23/22 08/23/22 History Patient History Medical History Anxiety Depression Diabetes mellitus, type 2 NIDDM GERD (gastroesophageal reflux disease) controlled, stable per pt Goiter H/O chest pain Per cardio, hx of chest pain syndrome possible secondary to syndrome X- relieved by Ranexa Angiographically normal coronary arteries per 03/10/21 cardiac cath Hiatal hernia History of COVID-19 11/2020 cough, sob, n/v, no hospitalization, no current issues Hyperlipidemia Hypertension controlled, stable per pt IBS (irritable bowel syndrome) Incontinent of urine Macular degeneration BL Multiple thyroid nodules Nutcracker esophagus Slow to wake up after anesthesia Pt denies h/o ICU transfer or reintubation, but reports she was admitted after her lap jacques when she was supposed to go home same-day. (2006 at [facility] per cardio note) Surgical History History of back surgery X3. L2-L4 decompression fusion 05/25/19: Grade 1 view, MAC 3, ETT 7. History of cardiac cath March 2021 [facility]- no stents/angioplasty 2012 [place]. No intervention performed. "Essentially normal coronary arteries" per cardio. History of colonoscopy with polypectomy History of fusion of cervical spine Limited ROM side to side History of left shoulder replacement 04/29/21: Grade 1 view, MAC 3, ETT 7 + PNB. History of right knee joint replacement X3- 2 revisions Hx of bilateral breast reduction surgery Hx of cholecystectomy Hx of total hysterectomy S/P thyroid biopsy benign Family History Mother , at 52. Heart disease Hypercholesteremia Hypertension Blood clot in vein Father , at 76 Lymphoma Lung cancer Asthma Sister Heart disease Multiple sclerosis Slow to wake up after anesthesia Sister Diabetes Heart disease Thyroid disease Brother Heart disease Sister Heart disease Hot thyroid nodule Brother Diabetes Heart disease Other Cancer Social History Smoking Status: Never smoker Second Hand Exposure: No; Do You Dip or Chew Tobacco: No; Tobacco Cessation Education Requested by Patient: No Hx Alcohol Use: Yes Alcohol type: beer and wine Hx Substance Use: No Preferred Language: Arabic Communication Ability: Effective Daycare Assistant Required: No Beliefs That Will Affect Care: None marital status: Current Living Situation: Spouse Other Information That Helps Us Care for You: No Feels Safe at Home: Yes Safety Concerns: Feels Safe At This Time Assistive Devices: None Review of Systems Review of Systems: All systems reviewed & are unremarkable except as noted in Subjective Physical Exam Physical Exam: Constitutional: Lying in the bed comfortably; alert orient x3. Not in any distress. Respiratory: normal respiratory effort, lungs clear to auscultation, no wheeze, rales, rhonchi. Normal insp/exp effort, no accessory muscle use Cardiovascular: RRR, no murmur, no edema Vessels: no JVD or carotid bruit Chest: normal inspection of chest Abdomen: normal bowel sounds, soft, nontender, no hepatosplenomegaly Musculoskeletal: Back not examined at patient had difficulty turning back. No cyanosis, clubbing Skin: no rashes, warm and dry normal turgor Neurologic: PERRL, EOMI, accommodation nl, no face palsy, no dysarthria CN's II- XI intact bilaterally and moves all extremities Psychiatric: A+Ox3, euthymic affect Lymphatic: no cervical or axillary lymphadenopathy : Rosas catheter in place draining clear urine Results & Data ([facility]) Vital Signs (Past 12 Hours) Vital Signs Temp Pulse Resp BP BP Pulse Ox O2 Del Method 08/23/22 15:13 36.7 C 79 16 131/77 93 Room Air 08/23/22 14:19 36.9 C 81 18 140/82 97 Nasal Cannula 08/23/22 12:30 36.8 C 79 16 131/79 97 Nasal Cannula 08/23/22 13:39 36.8 C 75 18 127/77 97 Nasal Cannula 08/23/22 12:03 36.9 C 75 18 134/77 99 Nasal Cannula 08/23/22 11:30 36.7 C 76 16 132/79 98 Nasal Cannula 08/23/22 11:15 72 14 133/68 95 Nasal Cannula 08/23/22 11:05 36.9 C 71 14 147/91 H 97 Nasal Cannula 08/23/22 10:45 71 11 L 143/75 H 100 Oxymask 08/23/22 10:55 71 14 131/75 93 Nasal Cannula 08/23/22 10:35 67 13 123/71 97 Oxymask 08/23/22 10:29 37.1 C 70 25 H 133/79 99 Oxymask 08/23/22 06:28 36.9 C 65 20 175/96 H 97 Room Air O2 Flow Rate 08/23/22 15:13 08/23/22 14:19 2 08/23/22 12:30 2 08/23/22 13:39 2 08/23/22 12:03 2 08/23/22 11:30 2 08/23/22 11:15 2 08/23/22 11:05 2 08/23/22 10:45 5 08/23/22 10:55 2 08/23/22 10:35 5 08/23/22 10:29 5 08/23/22 06:28 Laboratory Results Laboratory Results POC Glucose 121 mg/dl (70-99) H 08/23/22 12:10 SARS-CoV-2, RNA, NAAT NEGATIVE (NEGATIVE) 08/23/22 Unknown Blood Type B Positive 08/23/22 06:17 Antibody Screen NEGATIVE 08/23/22 06:17 Crossmatch See Detail 08/23/22 06:17 Impressions Lumbar Spine X-Ray 08/23/22 00:00 FL lumbar spine 2-3V CLINICAL HISTORY: T12-L1 DECOMP/FUSION COMPARISON STUDY: None. FLUOROSCOPY TIME: 32 seconds. FINDINGS: 4 fluoroscopic spot images of the lumbar spine demonstrate posterior decompression and fusion from the lower thoracic to the lower lumbar spine with pedicle screws and rods. Exact levels are difficult to identify on these spot images but appear to represent the T11-L4 levels. There is intervertebral cages at L4-5 and L5-S1. The hardware appears intact. IMPRESSION: Fluoroscopic assistance provided for thoracolumbar posterior fusion as above. ACT 112: Negative or not required by law. Electronically signed by: Lasha Henson M.D. 08/23/2022 12:38 PM
[2022-08-23] MEDS ORDERED: NON-FORMULARY MEDICATION (Vit C,E-Zn-Coppr-Lutein-Zeaxan [Preservision Areds-2] 250-200-40 PO SCH (21:00)
[2022-08-23] MEDS: PANTOprazole 40 MG TAB PO SCH (21:27)
[2022-08-23] MEDS: MULTIVITAMIN TAB PO SCH (21:27)
[2022-08-23] MEDS: FAMOTIDINE 20 MG TAB PO SCH (21:28)
[2022-08-23] MEDS: DOCUSATE SODIUM/SENNA 50/8.6MG TAB PO SCH (21:28)
[2022-08-23] MEDS: rOPINIRole HCL 2 MG TABLET PO SCH (21:28)
[2022-08-23] MEDS: RANOLAZINE 500 MG ER TAB PO SCH (21:28)
[2022-08-23] MEDS: DULoxetine HCL 60 MG CAP PO SCH (21:28)
[2022-08-23] MEDS: diphenhydrAMINE Capsule 25 MG CAP PO PRN (21:34)
[2022-08-24] MEDS: POLYETHYLENE (MIRALAX) 17 GM PACK PO SCH ×3 (06:22→18:22)
[2022-08-24 06:43] LABS: Basophils # (auto) 0.01 K/uL (0-0.2); Basophils % (auto) 0.1 %; Hematocrit (blood only) 29.3 % (34.1-44.9); Immature Granulocytes # (auto) 0.06 K/uL (0.00-0.02); Immature Granulocytes % (auto) 0.5 %; Lymphocytes # (auto) 1.25 K/uL (1.2-3.4); Mean Corpuscular Hemoglobin 30.5 pg (25.0-34.0); Mean Corpuscular Hgb Conc 34.1 g/dL (32.0-36.0); Mean Corpuscular Volume 89.3 fL (80.0-100.0); Mean Platelet Volume 10.1 fL (9.4-12.3); Monocytes % (auto) 8.8 %; Neutrophils # (auto) 9.03 K/uL (1.4-6.5); Neutrophils % (auto) 79.6 %; Platelet Count 167 K/uL (130-400); RDW Coefficient of Variation 14.2 % (11.5-14.5); RDW Standard Deviation 46.1 fL (36.4-46.3); Red Blood Count 3.28 M/uL (3.93-5.22); White Blood Count 11.35 K/ul (4.8-10.8)
[2022-08-24 07:07] LABS: Estimated Average Glucose 123 mg/dl; Hemoglobin A1C 5.9 % (4.5-5.6)
[2022-08-24 07:10] LABS: BUN Creatinine Ratio 19.3 (10-20); Calcium 8.5 mg/dl (8.5-10.1); Creatinine Clr Calc Pharmacy 101.1 ml/min; Est GFR (African American) 112.7 ml/min; Est GFR (Non-African American) 97.3 ml/min; Potassium 4.1 mmol/L (3.5-5.1)
[2022-08-24] MEDS: GABAPENTIN 600 MG TAB PO SCH ×3 (08:35→21:05)
[2022-08-24] MEDS: DULoxetine HCL 60 MG CAP PO SCH ×2 (08:35→21:07)
[2022-08-24] MEDS: LOSARTAN POTASSIUM 50 MG TAB PO SCH (08:35)
[2022-08-24] MEDS: LINACLOTIDE 145 MCG CAPSULE PO SCH (08:35)
[2022-08-24] MEDS: dexAMETHasone 6 MG in SYRINGE 0 ML IV SCH (08:35)
[2022-08-24] MEDS: ROSUVASTATIN CALCIUM 20 MG TAB PO SCH (08:35)
[2022-08-24] MEDS: ASPIRIN 81 MG ECTAB PO SCH (08:35)
[2022-08-24] MEDS: POTASSIUM CHLORIDE CRTAB 20 MEQ TABCR PO SCH (08:36)
[2022-08-24] MEDS: PANTOprazole 40 MG TAB PO SCH ×2 (08:36→21:06)
[2022-08-24] MEDS: RANOLAZINE 500 MG ER TAB PO SCH ×2 (08:36→21:07)
[2022-08-24] MEDS: METOPROLOL TARTRATE 25 MG TAB PO SCH (08:36)
[2022-08-24] MEDS: INSULIN ASPART PER UNIT SC SCH ×4 (08:42→21:20)
[2022-08-24] MEDS: LANTUS PER UNIT CHARGE SQ SCH (08:43)
--- NOTE | 2022-08-24 11:27 | Orthopedic Progress Note ---
Date of Service August 24, 2022 Assessment & Plan (1) Spinal stenosis, lumbar region with neurogenic claudication: Plan: At this time we will continue physical therapy monitor SIMON operatively discharge home next few days. Admission and Anticipated Discharge Date Admission Date: August 23, 2022 Subjective Patient's pain is controlled leg symptoms markedly improved Physical Exam Physical Exam: Patient is in the chair at the bedside. Is constricted testing. Results & Data ([facility]) Vital Signs (Past 12 Hours) Vital Signs Temp Pulse Resp BP Pulse Ox O2 Del Method 08/24/22 08:05 37.1 C 93 H 18 158/78 H 94 Room Air 08/24/22 07:20 Room Air 08/24/22 03:24 36.7 C 96 H 16 150/77 H 94
[2022-08-24] MEDS: oxyCODONE HCL IR 5 MG TAB (IMMEDIATE RELEASE) PO PRN ×2 (13:58→21:22)
--- NOTE | 2022-08-24 16:08 | Hospitalist Progress Note ---
Date of Service August 24, 2022 Assessment & Plan (1) Spinal stenosis, lumbar region with neurogenic claudication: Plan: Status post T12-L1 Decompression, T11-L1 Fusion, Hardware Removal L2-L4, Spinal Cord Monitoring on 08/23 Comfortable; not in any distress. No shortness of breath, chest pain, abdominal pain or discomfort. Rosas in place . Hemoglobin 10.0. DVT prophylaxis as per primary Monitor for pneumonia, ileus, UTI and DVT. (2) Diabetes mellitus, type 2: Plan: A1c is 5.9 Currently on Lantus 20 units at at bedtime and NovoLog Might need adjustment as she is currently on steroids; pharmacy on board. (3) Hypertension: Plan: Normotensive. Can be hypertensive due to pain. Continue pain control Continue on home losartan and metoprolol for now. (4) Hyperlipidemia: Plan: Continue Lipitor (5) Depression: Plan: Continue Cymbalta (6) Swallowing difficulty: Plan: Monitor for any episode of dysphagia. Modified diet as necessary. (7) GERD (gastroesophageal reflux disease): Plan: On Protonix twice daily; can go to home medication on discharge Admission and Anticipated Discharge Date Admission Date: August 23, 2022 Subjective Patient seen and examined at bedside. Patient is comfortable lying in the bed; not in any distress. She denies fever, chills, chest pain, shortness of breath or abdominal discomfort. Rosas is still in place draining clear urine. Review of Systems Review of Systems: All systems reviewed & are unremarkable except as noted in Subjective Physical Exam Physical Exam: Constitutional: Lying in the bed comfortably; alert orient x3. Not in any distress. Respiratory: normal respiratory effort, lungs clear to auscultation, no wheeze, rales, rhonchi. Normal insp/exp effort, no accessory muscle use Cardiovascular: RRR, no murmur, no edema Vessels: no JVD or carotid bruit Chest: normal inspection of chest Abdomen: normal bowel sounds, soft, nontender, no hepatosplenomegaly Musculoskeletal: Patient in place with SIMON drain draining sanguinous output. Skin: no rashes, warm and dry normal turgor Neurologic: PERRL, EOMI, accommodation nl, no face palsy, no dysarthria CN's II- XI intact bilaterally and moves all extremities Psychiatric: A+Ox3, euthymic affect Lymphatic: no cervical or axillary lymphadenopathy : Rosas catheter in place draining clear urine Results & Data Results & Data ([facility]) Vital Signs (Past 12 Hours) Vital Signs Temp Pulse Resp BP Pulse Ox O2 Del Method 08/24/22 08:05 37.1 C 93 H 18 158/78 H 94 Room Air 08/24/22 07:20 Room Air Laboratory Results Laboratory Results WBC 11.35 K/ul (4.8-10.8) H 08/24/22 05:50 RBC 3.28 M/uL (3.93-5.22) L 08/24/22 05:50 Hgb 10.0 g/dl (12.0-16.0) L 08/24/22 05:50 Hct 29.3 % (34.1-44.9) L 08/24/22 05:50 MCV 89.3 fL (80.0-100.0) 08/24/22 05:50 MCH 30.5 pg (25.0-34.0) 08/24/22 05:50 MCHC 34.1 g/dL (32.0-36.0) 08/24/22 05:50 RDW Std Deviation 46.1 fL (36.4-46.3) 08/24/22 05:50 RDW Coeff of Michelle 14.2 % (11.5-14.5) 08/24/22 05:50 Plt Count 167 K/uL (130-400) 08/24/22 05:50 MPV 10.1 fL (9.4-12.3) 08/24/22 05:50 Immature Gran % (Auto) 0.5 % 08/24/22 05:50 Neut % (Auto) 79.6 % 08/24/22 05:50 Lymph % (Auto) 11.0 % 08/24/22 05:50 Kings % (Auto) 8.8 % 08/24/22 05:50 Eos % (Auto) 0.0 % 08/24/22 05:50 Baso % (Auto) 0.1 % 08/24/22 05:50 Neut # (Auto) 9.03 K/uL (1.4-6.5) H 08/24/22 05:50 Lymph # (Auto) 1.25 K/uL (1.2-3.4) 08/24/22 05:50 Kings # (Auto) 1.00 K/uL (0.24-0.82) H 08/24/22 05:50 Eos # (Auto) 0.00 K/uL (0-0.50) 08/24/22 05:50 Baso # (Auto) 0.01 K/uL (0-0.2) 08/24/22 05:50 Immature Gran # (Auto) 0.06 K/uL (0.00-0.02) H 08/24/22 05:50 Sodium 138 mmol/L (136-145) 08/24/22 05:50 Potassium 4.1 mmol/L (3.5-5.1) 08/24/22 05:50 Chloride 106 mmol/L (98-107) 08/24/22 05:50 Carbon Dioxide 27 mmol/L (21-32) 08/24/22 05:50 Anion Gap 5 (3-11) 08/24/22 05:50 BUN 11 mg/dl (6-23) 08/24/22 05:50 Creatinine 0.57 mg/dl (0.6-1.2) L 08/24/22 05:50 Est Cr Clr Drug Dosing 101.1 ml/min 08/24/22 05:50 Est GFR ( Amer) 112.7 ml/min 08/24/22 05:50 Est GFR (Non-Af Amer) 97.3 ml/min 08/24/22 05:50 BUN/Creatinine Ratio 19.3 (10-20) 08/24/22 05:50 Glucose 122 mg/dl (70-99(Fasting)) H 08/24/22 05:50 POC Glucose 126 mg/dl (70-99) H 08/24/22 12:11 Estimat Average Glucose 123 mg/dl 08/24/22 05:50 Hemoglobin A1c 5.9 % (4.5-5.6) H 08/24/22 05:50 Calcium 8.5 mg/dl (8.5-10.1) 08/24/22 05:50 Hepatitis C Ab (EIA) NON-REACTIVE (NON-REACTIVE) 08/23/22 12:26 Hep C Ab Signal/Cutoff 0.04 (<1.00) 08/23/22 12:26 SARS-CoV-2, RNA, NAAT NEGATIVE (NEGATIVE) 08/23/22 Unknown Blood Type B Positive 08/23/22 06:17 Antibody Screen NEGATIVE 08/23/22 06:17 Crossmatch See Detail 08/23/22 06:17 Impressions Lumbar Spine X-Ray 08/23/22 00:00 FL lumbar spine 2-3V CLINICAL HISTORY: T12-L1 DECOMP/FUSION COMPARISON STUDY: None. FLUOROSCOPY TIME: 32 seconds. FINDINGS: 4 fluoroscopic spot images of the lumbar spine demonstrate posterior decompression and fusion from the lower thoracic to the lower lumbar spine with pedicle screws and rods. Exact levels are difficult to identify on these spot images but appear to represent the T11-L4 levels. There is intervertebral cages at L4-5 and L5-S1. The hardware appears intact. IMPRESSION: Fluoroscopic assistance provided for thoracolumbar posterior fusion as above. ACT 112: Negative or not required by law. Electronically signed by: Lasha Henson M.D. 08/23/2022 12:38 PM
[2022-08-24] MEDS: rOPINIRole HCL 2 MG TABLET PO SCH (21:05)
[2022-08-24] MEDS: DOCUSATE SODIUM/SENNA 50/8.6MG TAB PO SCH (21:06)
[2022-08-24] MEDS: MULTIVITAMIN TAB PO SCH (21:07)
[2022-08-24] MEDS: FAMOTIDINE 20 MG TAB PO SCH (21:09)
[2022-08-24] MEDS: diphenhydrAMINE Capsule 25 MG CAP PO PRN (21:21)
[2022-08-25] MEDS: POLYETHYLENE (MIRALAX) 17 GM PACK PO SCH ×2 (00:45→05:54)
--- NOTE | 2022-08-25 08:12 | Orthopedic Progress Note ---
Date of Service August 25, 2022 Assessment & Plan (1) Spinal stenosis, lumbar region with neurogenic claudication: Plan: Ms. Giles is postoperative day 2 status post thoracolumbar decompression and instrumented fusion. She is doing great. We will continue physical therapy today. Maintain SIMON drain and dressing. Continue with pain control. Anticipate discharge home tomorrow Admission and Anticipated Discharge Date Admission Date: August 23, 2022 Subjective Mrs. Lang is postoperative day 2 status post hardware removal lumbar spine and decompression and fusion from T11 L4. She is doing quite well. Leg pain greatly improved compared to preoperative status. She had a bowel movement. SIMON drain output last shift is 40 cc. Yesterday in physical therapy ambulating roughly 150 feet. No new complaints. Review of Systems Review of Systems: All systems reviewed & are unremarkable except as noted in HPI & below Physical Exam Physical Exam: She sitting in a chair in no acute distress Alert and oriented x3 Lumbar dressing is clean dry and intact with functioning SIMON drain Strength is intact bilateral lower extremities MARIO hose intact bilaterally Calf soft nontender bilaterally Results & Data ([facility]) Vital Signs (Past 12 Hours) Vital Signs Temp Pulse Resp BP Pulse Ox O2 Del Method 08/24/22 20:42 36.8 C 78 18 117/75 95 Room Air
[2022-08-25] MEDS: oxyCODONE HCL IR 5 MG TAB (IMMEDIATE RELEASE) PO PRN ×2 (09:01→17:49)
[2022-08-25] MEDS: LANTUS PER UNIT CHARGE SQ SCH (09:01)
[2022-08-25] MEDS: INSULIN ASPART PER UNIT SC SCH ×4 (09:02→21:07)
[2022-08-25] MEDS: dexAMETHasone 6 MG in SYRINGE 0 ML IV SCH (09:03)
[2022-08-25] MEDS: METOPROLOL TARTRATE 25 MG TAB PO SCH (09:03)
[2022-08-25] MEDS: LOSARTAN POTASSIUM 50 MG TAB PO SCH (09:03)
[2022-08-25] MEDS: PANTOprazole 40 MG TAB PO SCH ×2 (09:03→21:04)
[2022-08-25] MEDS: ROSUVASTATIN CALCIUM 20 MG TAB PO SCH (09:03)
[2022-08-25] MEDS: RANOLAZINE 500 MG ER TAB PO SCH ×2 (09:03→21:04)
[2022-08-25] MEDS: ASPIRIN 81 MG ECTAB PO SCH (09:04)
[2022-08-25] MEDS: LINACLOTIDE 145 MCG CAPSULE PO SCH (09:04)
[2022-08-25] MEDS: POTASSIUM CHLORIDE CRTAB 20 MEQ TABCR PO SCH (09:04)
[2022-08-25] MEDS: GABAPENTIN 600 MG TAB PO SCH ×3 (09:04→21:04)
[2022-08-25] MEDS: DULoxetine HCL 60 MG CAP PO SCH ×2 (09:04→21:04)
[2022-08-25] MEDS: MULTIVITAMIN TAB PO SCH (21:04)
[2022-08-25] MEDS: rOPINIRole HCL 2 MG TABLET PO SCH (21:04)
[2022-08-25] MEDS: FAMOTIDINE 20 MG TAB PO SCH (21:04)
[2022-08-25] MEDS: diphenhydrAMINE Capsule 25 MG CAP PO PRN (21:04)
[2022-08-25] MEDS: DOCUSATE SODIUM/SENNA 50/8.6MG TAB PO SCH (21:04)
--- NOTE | 2022-08-25 23:28 | Hospitalist Progress Note ---
Date of Service August 25, 2022 Assessment & Plan (1) Spinal stenosis, lumbar region with neurogenic claudication: Plan: Status post T12-L1 Decompression, T11-L1 Fusion, Hardware Removal L2-L4, Spinal Cord Monitoring on 08/23 No postop complication Continue pain control Hemoglobin stable Continue incentive spirometry PT/OT eval Fall precaution (2) Diabetes mellitus, type 2: Plan: A1c is 5.9 Continue Lantus 20 units at at bedtime and NovoLog Pharmacy on board for glycemic management Continue monitor blood sugar (3) Hypertension: Plan: Normotensive. Can be hypertensive due to pain. Continue pain control Continue on home losartan and metoprolol for now. (4) Hyperlipidemia: Plan: Continue Lipitor (5) Depression: Plan: Continue Cymbalta (6) Swallowing difficulty: Plan: Monitor for any episode of dysphagia. Modified diet as necessary. (7) GERD (gastroesophageal reflux disease): Plan: On Protonix twice daily; can go to home medication on discharge Admission and Anticipated Discharge Date Admission Date: August 23, 2022 Subjective Pt was seen and examined for postop follow up Sitting in chair with no acute distress Pt said that pain is controlled Denies any chest pain, palpitation, dizziness and SOB Review of Systems Review of Systems: All systems reviewed & are unremarkable except as noted in Subjective Physical Exam Physical Exam: General- No acute distress Head- atraumatic Eyes- PERRL, EOMI, ENT- oropharynx clear Neck- supple, no JVD Lungs- clear to auscultation Heart- regular rhythm; no murmur Abdomen- normal bowel sounds, soft, nontender Extremities- no calf tenderness Neuro- alert, oriented x 3; PERRL, EOMI; no facial palsy; no dysarthria Skin- warm & dry Results & Data Results & Data ([facility]) Vital Signs (Past 12 Hours) Vital Signs Temp Pulse Resp BP Pulse Ox O2 Del Method 08/25/22 21:31 36.6 C 71 18 127/81 98 Room Air 08/25/22 15:49 36.9 C 74 16 131/78 94 Room Air
[2022-08-26 06:54] LABS: Hemoglobin 9.6 g/dl (12.0-16.0); Mean Corpuscular Hemoglobin 31.1 pg (25.0-34.0); Mean Corpuscular Hgb Conc 34.3 g/dL (32.0-36.0); Mean Corpuscular Volume 90.6 fL (80.0-100.0); Mean Platelet Volume 9.9 fL (9.4-12.3); Nucleated RBC # (auto) 0.02 K/uL (0-0); Nucleated RBC % (auto) 0.2 %; Platelet Count 162 K/uL (130-400); RDW Coefficient of Variation 14.6 % (11.5-14.5); RDW Standard Deviation 47.9 fL (36.4-46.3); Red Blood Count 3.09 M/uL (3.93-5.22); White Blood Count 9.91 K/ul (4.8-10.8)
--- NOTE | 2022-08-26 08:11 | Discharge Summary ---
Date of Service August 26, 2022 Admission HPI Per Admitting Provider This is a 67-year-old female who presents with Back and probably) nonoperative care she is here for surgical invention. Principal Diagnosis Lumbar spinal stenosis with neurogenic claudication Discharge Data Allergies Allergy/AdvReac Type Severity Reaction Status Date / Time ampicillin Allergy Intermediate SWELLING Verified 08/23/22 06:32 OF LIPS pregabalin [From Lyrica] Allergy Intermediate Swelling Verified 08/23/22 06:32 of extremities vancomycin Allergy Intermediate ITCHINESS Verified 08/23/22 06:32 AND SKIN REDNESS Consultations 08/23/22 11:59 Consult Hospitalist Routine Procedures Performed Operation Date: 08/23/22 07:45 Actual Procedures p T12-L1 Decompression, T11-L1 Fusion, Hardware Removal L2-L4, Spinal Cord Monitoring(Not Applicable) - Leandro Segura DO Ordered Studies 08/23/22 FL lumbar spine 2-3V Routine Hospital Course (1) Spinal stenosis, lumbar region with neurogenic claudication: Patient 1 lumbar decompression fusion tolerated this well was taken to the orthopedic floor postoperatively postop day neurology was up and ambulating progressed to postop day #2 on postop day #3 pain was well controlled SIMON drain decreased probably. Excellent strength testing. Subsequent discharge home. Discharge orders instructions from the chart for further review. Total Time Total Time Spent Total Time Spent (In Minutes): 20 minutes Discharge Plan Discharge Items Patient Disposition: Home - Self-Care Reason For Visit: Spinal Spenosis Lumbar Region with Neurogenic Discharge Diagnosis: Lumbar spinal stenosis with neurogenic claudication Activity: As commented below Non-emergency contact: Primary Care Provider Call non-emergency contact if: you have any medication questions Follow-up/Referrals: Shin Alston DO [Primary Care Provider] - Diet: Regular Addtl Attending Provider Instructions: ACTIVITY RECOMMENDATIONS: SELF CARE INSTRUCTIONS AFTER THORACIC/LUMBAR FUSIONS 1. You may walk to your tolerance. It is good exercise for your legs and back. Expect some back and intermittent leg aches and pains. 2. You may perform "counter-top" level activities (make a sandwich, danis with a project, etc.). 3. No bending or lifting of more than 10 pounds or back twisting of any nature (roll like a log when turning in bed). 4. You may ride in a car for 20-30 minutes at a time. No driving until after your first visit with your doctor. 5. Frequent changes of position and restricting sitting to 30 minutes at a time will help limit the amount of back spasms and stiffness you may experience. 6. You may discontinue the use of ambulatory aids (cane, crutches, etc.) once your strength and confidence allow. 7. You may engine manager the shower and let water strike your incision when you arrive home at least once daily. Do not take a tub bath, sit in a hot tub or go into a swimming pool until after your first recheck in the office. SPECIAL CARE INSTRUCTIONS: VERY IMPORTANT TO READ AND REVIEW A. Your surgical incision has been closed with a cosmetic suture under the skin that will dissolve in about 6 weeks. In 14 days, you can use a pair of clean scissors and cut the suture that is left outside of the skin at the ends of your incision. 1. The small skin tapes can be removed 7 days after surgery if they have not fallen off by that point. 2. You may keep the wound open to air as much as possible to promote healing after post-op day number 5 unless told otherwise by your doctor. 3. If you think the wound looks like it is becoming infected (redness or worsening drainage) and/or you are experiencing fever, chill or worsening back pain and muscle spasms, contact the office so that we may evaluate you as soon as possible. B. Complications are uncommon, but please contact us if you have any signs or symptoms of: 1. wound infection (fever higher than 102.5 degrees F, redness, separation of wound, drainage, or increasing pain from the incision) 2. blood clots in legs (pain, swelling, redness and warmth in legs) 3. urinary tract infection (fever higher than 102.5 degrees F, burning upon urination or increased frequency of urination) 4. nerve problems (inability to walk on your toes or heels, numbness, loss of bowel or bladder control) 5. any other symptoms that concern you C. Please call the office at if you have any concerns or questions about your operation or recovery. D. No smoking! Smoking drastically decreases the chance of a solid fusion. E. Do not take any anti-inflammatory medications (Indocin, Advil, Motrin, Aspirin, Naprosyn, etc.) as these may inhibit the chance of a solid fusion. Tylenol is okay to take for pain. MANAGING PAIN AFTER SPINAL SURGERY 1. Narcotic medication is intended for short-term use and will be provided for surgical pain. Surgical pain usually lasts for a period of 4-6 weeks. Narcotic medication includes Percocet, Vicodin, Darvocet, Tylenol #3 or Lortab. 2. Longer-term pain is more appropriately treated with non-narcotic medication such as Tylenol ES. 3. Muscle spasm is not appropriately treated with narcotics. Muscle relaxers such as Soma, Flexeril or Skelaxin can be used along with Tylenol ES. 4. Remember that we all live with some "aches and pains". This is not unusual or uncommon after an injury or as we get older. a. Back pain is expected and may include muscle spasms for 4 to 6 weeks after surgery. The pain should gradually improve. If the pain worsens for no apparent reason, please contact the office. b. Intermittent leg pain may also be experienced and should not be concerned about unless it worsens for no apparent reason. If so, please contact the office. 5. We will provide appropriate medication within the normal guidelines of their prescribed use. We will also be very cautious and aware of potential abuse and extended duration of patients' medication needs. a. Pain medications are for your comfort and to assist with sleep and rest so that the tissue can heal. They are not provided in order to return to normal activity and should not be used through the day. To do so or worsening pain at night can result from ongoing tissue damage and development of tolerance to the prescribed medicine. 6. Please allow 2-3 days to process refills. Prescriptions will not be mailed but must be picked up at the office. FOLLOW UP VISIT: Keep your scheduled follow-up appointment. Any questions, please call the office at . Pending Studies at Discharge: No Stand-Alone Forms: My [employer] Smoking Cessation Medications and DC Order Prescriptions: New tramadol 50 mg tablet 50 mg PO Q6H PRN (Reason: pain, moderate) Qty: 30 0RF oxycodone 5 mg tablet 5 mg PO Q6H PRN (Reason: pain, severe) Qty: 30 0RF Continued mecobalamin (vitamin B12) 1,000 mcg tablet,chewable 1,000 mcg PO QAM metformin 750 mg tablet extended release 24 hr 750 mg PO BID Qty: 180 3RF famotidine [Zantac-360 (famotidine)] 20 mg tablet 20 mg PO QPM pantoprazole 20 mg Tablet,Delayed Release (Dr/Ec) 20 mg PO BID PreserVision AREDS-2 [id number] [id number] Capsule 1 tab PO HS multivitamin Tablet 1 tab PO QPM losartan 50 mg Tablet 50 mg PO QAM Gaviscon Extra Strength 160-105 mg Tablet,Chewable 1 tab PO DAILY PRN (Reason: Acid Reflux) rosuvastatin [Crestor] 20 mg Tablet 40 mg PO QAM metoprolol tartrate 25 mg Tablet 25 mg PO QAM ranolazine [Ranexa] 1,000 mg Tablet Extended Release 12 Hr 1,000 mg PO BID potassium chloride 20 mEq Tablet Extended Release 20 meq PO QAM duloxetine [Cymbalta] 60 mg capsule,delayed release(DR/EC) 60 mg PO BID ropinirole [Requip] 3 mg tablet 6 mg PO HS Linzess 290 mcg capsule 145 mcg PO QAM aspirin [Adult Low Dose Aspirin] 81 mg tablet,delayed release (DR/EC) 81 mg PO QAM polyethylene glycol 3350 [Miralax] 17 gram powder in packet 17 g PO DAILY PRN (Reason: constipation) Qty: 5 0RF Wegovy 2.4 mg/0.75 mL Pen Injector 2.4 mg SUBCUT Q7D Rx Instructions: Tuesday gabapentin 600 mg tablet 600 mg PO TID Discharge Orders: Discharge Order (Routine); Ordered 08/26/22 Ordered By: Leandro Segura Admission Data Admit Date/Time: 08/23/22 10:17 Attending Provider: Leandro Segura Admit Provider: Leandro Segura Primary Care Provider: Shin Alston Other Providers: Chevy Crews ; Glenna Valerio ; Forrest Aguilra
[2022-08-26] MEDS: INSULIN ASPART PER UNIT SC SCH (08:27)
[2022-08-26] MEDS: GABAPENTIN 600 MG TAB PO SCH (08:28)
[2022-08-26] MEDS: LANTUS PER UNIT CHARGE SQ SCH (08:28)
[2022-08-26] MEDS: ASPIRIN 81 MG ECTAB PO SCH (08:28)
[2022-08-26] MEDS: DULoxetine HCL 60 MG CAP PO SCH (08:28)
[2022-08-26] MEDS: dexAMETHasone 6 MG in SYRINGE 0 ML IV SCH (08:28)
[2022-08-26] MEDS: ROSUVASTATIN CALCIUM 20 MG TAB PO SCH (08:29)
[2022-08-26] MEDS: RANOLAZINE 500 MG ER TAB PO SCH (08:29)
[2022-08-26] MEDS: METOPROLOL TARTRATE 25 MG TAB PO SCH (08:29)
[2022-08-26] MEDS: LOSARTAN POTASSIUM 50 MG TAB PO SCH (08:29)
[2022-08-26] MEDS: LINACLOTIDE 145 MCG CAPSULE PO SCH (08:29)
[2022-08-26] MEDS: POTASSIUM CHLORIDE CRTAB 20 MEQ TABCR PO SCH (08:29)
[2022-08-26] MEDS: PANTOprazole 40 MG TAB PO SCH (08:29)
[2022-08-26] MEDS: oxyCODONE HCL IR 5 MG TAB (IMMEDIATE RELEASE) PO PRN (11:02)
--- NOTE | 2022-08-26 18:37 | Hospitalist Progress Note ---
Date of Service August 26, 2022 Assessment & Plan (1) Spinal stenosis, lumbar region with neurogenic claudication: Plan: Status post T12-L1 Decompression, T11-L1 Fusion, Hardware Removal L2-L4, Spinal Cord Monitoring on 08/23 No postop complication Continue pain control Hemoglobin stable PT/OT eval Fall precaution (2) Diabetes mellitus, type 2: Plan: A1c is 5.9 Continue Lantus 20 units at at bedtime and NovoLog Pharmacy on board for glycemic management Continue monitor blood sugar (3) Hypertension: Plan: Normotensive. Can be hypertensive due to pain. Continue pain control Continue on home losartan and metoprolol for now. (4) Hyperlipidemia: Plan: Continue Lipitor (5) Depression: Plan: Continue Cymbalta (6) Swallowing difficulty: Plan: Monitor for any episode of dysphagia. Modified diet as necessary. (7) GERD (gastroesophageal reflux disease): Plan: On Protonix twice daily; can go to home medication on discharge Admission and Anticipated Discharge Date Admission Date: August 23, 2022 Subjective Pt was seen and examined for postop follow up Sitting in bed with no acute distress getting ready to discharge Denies any chest pain, palpitation, dizziness and SOB Review of Systems Review of Systems: All systems reviewed & are unremarkable except as noted in Subjective Physical Exam Physical Exam: General- No acute distress Head- atraumatic Eyes- PERRL, EOMI, ENT- oropharynx clear Neck- supple, no JVD Lungs- clear to auscultation Heart- regular rhythm; no murmur Abdomen- normal bowel sounds, soft, nontender Extremities- no calf tenderness Neuro- alert, oriented x 3; PERRL, EOMI; no facial palsy; no dysarthria Skin- warm & dry Results & Data Results & Data ([facility]) Vital Signs (Past 12 Hours) Vital Signs Temp Pulse Resp BP BP Pulse Ox O2 Del Method 08/26/22 11:30 36.7 C 75 18 137/77 175/96 H 95 08/26/22 08:33 Room Air 08/26/22 07:30 36.7 C 75 18 137/77 95 Room Air
== END 2022-08-26 12:54 | disposition home or self-care (01) | DRG 455 ==
LOC: ASU 05:59 → 3E 10:17